=== PATIENT | male | born 1950 | race Caucasian/White ===

== ENCOUNTER 2017-03-18 19:38 | Emergency (ER) | payer OTHER, BC ==
[2017-03-18 19:44] VITALS: BP 159/92; PULSE 98; TEMP 97.5; BMI 23.7
--- NOTE | 2017-03-18 20:01 | PDOC ---
History of Present Illness - General History Source: Patient Exam Limitations: No Limitations - History of Present Illness Initial Comments: 03/18/17 20:49 Patient is a 66 year old male with a significant past medical history of COPD, chronic colitis?, depression and anxiety who presents to the ED with complaints of general body aches that began 10 days ago. Patient reports body aches began after being prescribed Lipitor on February 23 by PCP. He reports body aches began to subside after stopping prescription for 5 days. Patient reports restarting Lipitor prescription, which restarted the general body ache and joint pain within 2 days of taking the Medication. Patient states it has been 10 days since last dose of Lipitor medication. Patient does not rate pain but states pain intensity increased this morning stating It was barely bearable. He report experiencing intermittent episodes of chest tightness and jaw tensing secondary to general body ache and joint pain. Patient reports experiencing intermittent SOB this morning secondary to general body ache but states he has never experienced it with his COPD only morning mucous. Patient reports going to Family services in [place] for his anxiety panic disorder and depress. He states that is where he receives his therapy and medication from. Patient reports taking motrin with no relief and Extra Strength Tylenol with minimal relief. He reports beginning Vaping 2 weeks ago and is worried it is connected to his General body aches. Denies fever, chills. Denies any trauma to affected areas. Denies nausea, vomiting. Denies any contact with sick individual, out of state travel. Denies any other symptoms. Allergies: None Social history: Current smoker. Current Vaper. Former drinker (Quit August 2016) . No illicit drugs. Surgical history: None PMD: Dr. Sampson <Chico Hobbs - Last Filed: 03/18/17 20:49> <Regi Steele - Last Filed: 03/18/17 22:07> - General Chief Complaint: Chest Pain Stated Complaint: CHEST PAIN Time Seen by Provider: 03/18/17 19:56 Past History <Chico Hobbs - Last Filed: 03/18/17 20:49> - Past Medical History COPD: Yes Psychiatric Problems: Yes (DEPRESSION/PANIC ATTACKS) - Suicide/Smoking/Psychosocial Hx Smoking History: Current every day smoker Have you smoked in the past 12 months: Yes Number of Cigarettes Smoked Daily: 20 Information on smoking cessation initiated: No 'Breaking Loose' booklet given: 01/22/15 Hx Alcohol Use: Yes Drug/Substance Use Hx: No Substance Use Type: Alcohol <Regi Steele - Last Filed: 03/18/17 22:07> - Past Medical History Allergies/Adverse Reactions: Allergies Allergy/AdvReac Type Severity Reaction Status Date / Time No Known Allergies Allergy Verified 03/18/17 19:40 Home Medications: Ambulatory Orders Cephalexin Monohydrate [Keflex -] 500 mg PO Q6H #27 capsule 11/09/14 Clonazepam [Klonopin] 1 mg PO ASDIR 11/09/14 Duloxetine HCl [Cymbalta -] 60 mg PO DAILY 11/09/14 Quetiapine Fumarate "Xr" [Seroquel XR] 150 mg PO DAILY 11/09/14 Meclizine HCl [Antivert -] 25 mg PO TID PRN #30 tablet 01/22/15 Methocarbamol [Robaxin -] 500 mg PO TID #30 tablet 03/18/17 Review of Systems - Review of Systems Able to Perform ROS?: Yes Comments:: 03/18/17 20:49 GENERAL/CONSTITUTIONAL: No fever or chills. No weakness. HEAD, EYES, EARS, NOSE AND THROAT: No change in vision. No ear pain or discharge. No sore throat. CARDIOVASCULAR: No chest pain or shortness of breath. RESPIRATORY: No cough, wheezing, or hemoptysis. GASTROINTESTINAL: No nausea, vomiting, diarrhea or constipation. GENITOURINARY: No dysuria, frequency, or change in urination. MUSCULOSKELETAL: +General Body aches. +Joint pain. SKIN: No rash NEUROLOGIC: No headache, vertigo, loss of consciousness, or change in strength/ sensation. ENDOCRINE: No increased thirst. No abnormal weight change. HEMATOLOGIC/LYMPHATIC: No anemia, easy bleeding, or history of blood clots. ALLERGIC/IMMUNOLOGIC: No hives or skin allergy. All Other Systems: Reviewed and Negative <Chico Hobbs - Last Filed: 03/18/17 20:49> *Physical Exam - Vital Signs Last Vital Signs Temp Pulse Resp BP Pulse Ox 97.5 F L 98 H 20 159/92 98 03/18/17 19:40 03/18/17 19:40 03/18/17 19:40 03/18/17 19:40 03/18/17 19:40 - Physical Exam Comments: 03/18/17 20:49 GENERAL: +Pale. Awake, alert, and fully oriented, in no acute distress HEAD: No signs of trauma EYES: PERRLA, EOMI, sclera anicteric, conjunctiva clear ENT: Auricles normal inspection, hearing grossly normal, nares patent, oropharynx clear without exudates. Moist mucosa NECK: Normal ROM, supple, no lymphadenopathy, JVD, or masses LUNGS: Breath sounds equal, clear to auscultation bilaterally. No wheezes, and no crackles HEART: Regular rate and rhythm, normal S1 and S2, no murmurs, rubs or gallops ABDOMEN: Soft, nontender, normoactive bowel sounds. No guarding, no rebound. No masses EXTREMITIES: Normal range of motion, no edema. No clubbing or cyanosis. No cords, erythema, or tenderness NEUROLOGICAL: Cranial nerves II through XII grossly intact. Normal speech, normal gait SKIN: Warm, Dry, normal turgor, no rashes or lesions noted. <Chico Hobbs - Last Filed: 03/18/17 20:49> - Vital Signs Last Vital Signs Temp Pulse Resp BP Pulse Ox 97.5 F L 98 H 20 159/92 98 03/18/17 19:40 03/18/17 19:40 03/18/17 19:40 03/18/17 19:40 03/18/17 19:40 <Regi Steele - Last Filed: 03/18/17 22:07> ED Treatment Course - LABORATORY CBC & Chemistry Diagram: 03/18/17 20:50 03/18/17 20:50 <Regi Steele - Last Filed: 03/18/17 22:07> Medical Decision Making - Medical Decision Making 03/18/17 20:25 Pt comes with muscle aches all ramy his body; began last week; for the past 2 weeks he had been taking lipitor; he was on and off lipitor, as he found that it caused muscle aches. Pt has COPD and smokes cigars. He began vaping 2 weeks ago. Perhaps vaping is causing ,uscle aches. Pt admits that he has depression and panic and used to be an alcoholic. 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 He doesn't take care of himself and eat well. Pt may have body aches due to electrolyte disturbance. Pt may have body aches due to rheumatologic disease. <Regi Steele - Last Filed: 03/18/17 22:07> *DC/Admit/Observation/Transfer - Attestations Scribe Attestion: 03/18/17 20:50 Documentation prepared by Chico Hobbs, acting as center medical specialist for Regi Steele MD/DO. <Chico Hobbs - Last Filed: 03/18/17 20:49> - Discharge Dispostion Admit: No <Regi Steele - Last Filed: 03/18/17 22:07> Diagnosis at time of Disposition: Body aches - Discharge Dispostion Disposition: HOME Condition at time of disposition: Stable - Prescriptions Prescriptions: Methocarbamol [Robaxin -] 500 mg PO TID #30 tablet - Referrals Referrals: Emily Sampson MD [Primary Care Provider] - - Patient Instructions Printed Discharge Instructions: DI for Musculoskeletal Pain
[2017-03-18] MEDS ORDERED: SODIUM CHLORIDE 0.9% 500 ML INFUS.BAG IV ONE (20:18)
[2017-03-18] MEDS ORDERED: KETOROLAC TROMETHAMINE 30 MG/1 ML VIAL IVPUSH ONE (20:18)
[2017-03-18] MEDS ORDERED: THIAMINE HCL 200 MG/2 ML VIAL IVPB ONE (20:19)
[2017-03-18] MEDS ORDERED: CYANOCOBALAMIN (VITAMIN B-12) 1000 MCG/1 ML VIAL IM ONE (20:19)
[2017-03-18] MEDS ORDERED: MAGNESIUM SULF 50% (8.12 MEQ/2 ML-1 GM VIAL) IVPB ONE (20:19)
[2017-03-18] MEDS ORDERED: KETOROLAC TROMETHAMINE 30 MG/1 ML VIAL ONE (20:42)
[2017-03-18] MEDS ORDERED: THIAMINE HCL 200 MG/2 ML VIAL ONE (20:42)
[2017-03-18] MEDS ORDERED: MAGNESIUM SULF 50% (8.12 MEQ/2 ML-1 GM VIAL) ONE (20:42)
[2017-03-18 21:04] LABS: BASOPHIL 1.3 % (0-2.0); EOSINOPHIL 2.9 % (0-4.5); MCH 30.8 pg (25.7-33.7); MCHC 34.2 g/dl (32.0-35.9); MEAN PLT VOLUME 8.2 fl (7.5-11.1); NEUTROPHILS 62.3 % (42.8-82.8); PLATELET COUNT 178 K/MM3 (134-434); RDW 13.8 % (11.9-15.9); WHITE BLOOD COUNT 8.1 K/mm3 (4.0-10.0)
[2017-03-18 21:15] LABS: INR 0.92 (0.82-1.09); PROTHROMBIN TIME (PATIENT) 10.4 SEC (9.98-11.88)
[2017-03-18 21:30] LABS: ALBUMIN 4.3 g/dl (3.4-5.0); ANION GAP 6 (8-16); BILIRUBIN,TOTAL 0.3 mg/dL (0.2-1.0); CALCIUM 8.3 mg/dL (8.5-10.1); CO2 28 mmol/L (21-32); CREATININE 0.9 mg/dL (0.7-1.3); GLUCOSE,RANDOM 91 mg/dL (74-106); SGPT/ALT 31 U/L (12-78); TOT PROT 7.5 g/dl (6.4-8.2)
[2017-03-18 21:38] LABS: ALK PHOS 78 U/L (45-117); CPK 139 IU/L (39-308); TROPONIN I < 0.02 ng/ml (0.00-0.05)
[2017-03-18 21:42] LABS: SGOT/AST 20 U/L (15-37)
[2017-03-18] MEDS ORDERED: METHOCARBAMOL 500 MG TABLET PO ONE (22:00)
[2017-03-18] MEDS ORDERED: METHOCARBAMOL 500 MG TABLET ONE (22:14)
--- NOTE | 2017-03-19 17:30 | EKG ---
Test Reason : Blood Pressure : / mmHG Vent. Rate : 083 BPM Atrial Rate : 083 BPM P-R Int : 182 ms QRS Dur : 102 ms QT Int : 386 ms P-R-T Axes : 081 014 055 degrees QTc Int : 453 ms NORMAL SINUS RHYTHM INCOMPLETE RIGHT BUNDLE BRANCH BLOCK SEPTAL INFARCT , AGE UNDETERMINED ABNORMAL ECG WHEN COMPARED WITH ECG OF 29-OCT-2010 21:57, NO SIGNIFICANT CHANGE WAS FOUND Confirmed by BRADLEY WADE MD ([id number]) on 03/19/2017 5:30:05 PM Referred By: Confirmed By:BRADLEY WADE MD
== END 2017-03-18 22:13 | disposition home or self-care (01) ==
LOC: JER 19:38
DX: M79.1 Myalgia (principal); J44.9 Chronic obstructive pulmonary disease, unspecified; F41.8 Other specified anxiety disorders; F17.290 Nicotine dependence, other tobacco product, uncomplicated
CPT/HCPCS: 36415; 80053; 82550; 84484; 85025; 85610; 85651; 85730; 93005; 93010; 99281-25

== ENCOUNTER 2017-07-07 16:28 | Emergency (ER) | payer OTHER, BC ==
[2017-07-07 16:42] VITALS: BP 143/100; PULSE 95; TEMP 97.5; BMI 24.3
--- NOTE | 2017-07-07 18:09 | PDOC ---
Attending Attestation - Resident Resident Name: Esteban Harrison - ED Attending Attestation I have performed the following: I have examined & evaluated the patient, The case was reviewed & discussed with the resident, I agree w/resident's findings & plan, Exceptions are as noted - HPI HPI: 07/07/17 18:06 66 yo M presenting with a complaint of black tarry stools Awoke yesterday feeling dizzy At noon, he had 2 nml bowel movements After that, 1 liquid black stool AFTER this, he took Peptobismol Continues to feel weak and malaised Today had 2 dark appearing stools He notes abdominal discomfort No prior endoscopy or colonoscopy - Physicial Exam PE: 07/07/17 18:08 GENERAL: The patient is in no acute distress. EYES: PERRLA, EOMI, conjunctiva clear LUNGS: Breath sounds equal, clear to auscultation bilaterally. No wheezes, and no crackles. HEART:Regular rate and rhythm, normal S1 and S2 without murmur, rub or gallop. ABDOMEN: Soft, nontender RECTAL: brown stools, no external hemorrhoids (by resident) NEUROLOGICAL: Cranial nerves II through XII grossly intact. Normal speech. No focal neurological deficits. SKIN: No bruising - Medical Decision Making 07/09/17 12:04 66 yo M p/w dizziness and description of what sounds like melanotic stools Exam is significant for brown stools guiaic (+) No abd pain Hgb stable Pt not dizzy with standing Call placed to Dr Christianson He agrees with discharge Pt can be seen in the office for outpatient work up (no prior colonoscopy or endoscopy) Clinical impression: guiaic positive stool, initial presentation
[2017-07-07 18:14] LABS: HEMATOCRIT 34.7 % (35.4-49); HEMOGLOBIN 12.2 GM/dL (11.7-16.9); LYMPH % 19.1 % (8-40); MCH 33.1 pg (25.7-33.7); MCHC 35.2 g/dl (32.0-35.9); MEAN CELL VOLUME 94.1 fl (80-96); MEAN PLT VOLUME 8.6 fl (7.5-11.1); MONO % 6.3 % (3.8-10.2); NEUT % 72.6 % (42.8-82.8); PLATELET COUNT 170 K/MM3 (134-434); RBC 3.69 M/mm3 (4.00-5.60); RDW 14.4 % (11.9-15.9); WHITE BLOOD COUNT 11.1 K/mm3 (4.0-10.0)
[2017-07-07 18:33] LABS: INR 0.93 (0.82-1.09); PROTHROMBIN TIME (PATIENT) 10.5 SEC (9.98-11.88)
[2017-07-07 18:35] LABS: ACTIVATED PTT 30.4 SECONDS (26.9-34.4)
[2017-07-07 18:38] LABS: ALBUMIN 4.3 g/dl (3.4-5.0); ANION GAP 9 (8-16); BILIRUBIN,TOTAL 0.4 mg/dL (0.2-1.0); BLOOD UREA NITROGEN 20 mg/dL (7-18); CALCIUM 8.7 mg/dL (8.5-10.1); CHLORIDE 104 mmol/L (98-107); CO2 24 mmol/L (21-32); CREATININE 0.8 mg/dL (0.7-1.3); GLUCOSE,RANDOM 99 mg/dL (74-106); POTASSIUM 4.6 mmol/L (3.5-5.1); SGOT/AST 26 U/L (15-37); SGPT/ALT 28 U/L (12-78); SODIUM 137 mmol/L (136-145); TOT PROT 7.8 g/dl (6.4-8.2)
[2017-07-07 18:39] LABS: ALK PHOS 81 U/L (45-117)
--- NOTE | 2017-07-07 18:56 | PDOC ---
History of Present Illness - General Chief Complaint: Rectal Bleed Stated Complaint: LIGHTHEADED/WEAK Time Seen by Provider: 07/07/17 17:07 History Source: Patient - History of Present Illness Initial Comments: 07/07/17 18:48 66M wioth pmh of depression anxiety presents with 2 episodes of liquid black tarry stools since yesterday. He states that he ingested Kaopectate after his first episode yesterday. Complains of generalized weakness/fatigue. Denies nausea, vomiting, abdominal pain, chest pain, diarrhea or constipation or bright blood per rectum. 07/07/17 18:53 07/07/17 18:56 07/07/17 18:58 Past History - Past Medical History Allergies/Adverse Reactions: Allergies Allergy/AdvReac Type Severity Reaction Status Date / Time azithromycin AdvReac Verified 07/07/17 16:38 Home Medications: Ambulatory Orders Cephalexin Monohydrate [Keflex -] 500 mg PO Q6H #27 capsule 11/09/14 Clonazepam [Klonopin] 1 mg PO ASDIR 11/09/14 Duloxetine HCl [Cymbalta -] 60 mg PO DAILY 11/09/14 Quetiapine Fumarate "Xr" [Seroquel XR] 150 mg PO DAILY 11/09/14 Meclizine HCl [Antivert -] 25 mg PO TID PRN #30 tablet 01/22/15 Methocarbamol [Robaxin -] 500 mg PO TID #30 tablet 03/18/17 COPD: Yes Psychiatric Problems: Yes (DEPRESSION/PANIC ATTACKS) - Suicide/Smoking/Psychosocial Hx Smoking History: Current every day smoker Have you smoked in the past 12 months: Yes Number of Cigarettes Smoked Daily: 20 Information on smoking cessation initiated: No 'Breaking Loose' booklet given: 01/22/15 Hx Alcohol Use: Yes Drug/Substance Use Hx: No Substance Use Type: Alcohol Review of Systems - Review of Systems Able to Perform ROS?: Yes Is the patient limited Divehi proficient: No Constitutional: Yes: Weakness. No: Symptoms Reported HEENTM: No: Symptoms Reported Respiratory: No: Symptoms reported Cardiac (ROS): No: Symptoms Reported ABD/GI: Yes: See HPI : No: Symptoms Reported Musculoskeletal: No: Symptoms Reported All Other Systems: Reviewed and Negative *Physical Exam - Vital Signs Last Vital Signs Temp Pulse Resp BP Pulse Ox 97.5 F L 95 H 19 143/100 99 07/07/17 16:38 07/07/17 16:38 07/07/17 16:38 07/07/17 16:38 07/07/17 16:38 - Physical Exam General Appearance: Yes: Nourished, Appropriately Dressed. No: Apparent Distress HEENT: positive: EOMI, KARUNA, Normal ENT Inspection Respiratory/Chest: positive: Lungs Clear, Normal Breath Sounds. negative: Chest Tender, Respiratory Distress Cardiovascular: positive: Regular Rhythm, Regular Rate, S1, S2 Musculoskeletal: positive: Normal Inspection. negative: CVA Tenderness Extremity: positive: Normal Capillary Refill, Normal Inspection, Normal Range of Motion Integumentary: positive: Normal Color, Dry, Warm Neurologic: positive: Fully Oriented, Alert, Normal Mood/Affect ED Treatment Course - LABORATORY CBC & Chemistry Diagram: 07/07/17 18:00 07/07/17 18:00 - ADDITIONAL ORDERS Additional order review: Laboratory Results 07/07/17 07/07/17 07/07/17 18:00 18:00 18:00 PT with INR 10.50 INR 0.93 PTT (Actin FS) 30.4 Sodium 137 Potassium 4.6 Chloride 104 Carbon Dioxide 24 Anion Gap 9 BUN 20 H D Creatinine 0.8 Creat Clearance w eGFR > 60 Random Glucose 99 Calcium 8.7 Total Bilirubin 0.4 D AST 26 D ALT 28 Alkaline Phosphatase 81 Total Protein 7.8 Albumin 4.3 Stool Occult Blood Positive 07/07/17 18:00 RBC 3.69 L MCV 94.1 MCHC 35.2 RDW 14.4 MPV 8.6 Neutrophils % 72.6 Lymphocytes % 19.1 D Monocytes % 6.3 Eosinophils % 1.0 Basophils % 1.0 - RADIOLOGY Radiology Studies Ordered: Category Date Time Status CHEST PA & LAT [RAD] Stat Radiology 07/07/17 17:23 Ordered Medical Decision Making - Medical Decision Making 07/07/17 18:57 Occult blood positive. 07/07/17 18:58 Will send for chest xray due patient's long history of smoking. *DC/Admit/Observation/Transfer Diagnosis at time of Disposition: Melena - Discharge Dispostion Disposition: HOME Condition at time of disposition: Stable Admit: No - Referrals Referrals: Emily Sampson MD [Primary Care Provider] - Benito Christianson MD [Staff Physician] - - Patient Instructions Printed Discharge Instructions: Gastrointestinal Bleeding Additional Instructions: Follow up with Dr. Christianson within 2-3 days for appointment to get endoscopy for upper gastrointestinal bleed. Come back to the ER for any new, worsening or concerning symptoms. - Post Discharge Activity
== END 2017-07-07 19:41 | disposition home or self-care (01) ==
LOC: JER 16:28
DX: K92.1 Melena (principal)
CPT/HCPCS: 36415; 71046-TC-FY; 80053; 82272; 85025; 85610; 85730; 86850; 86900; 86901; 99284-25

== ENCOUNTER 2018-05-02 12:11 | Inpatient (IN) | payer OTHER, BC ==
--- NOTE | 2018-05-02 12:53 | PDOC ---
History of Present Illness - General Chief Complaint: SIRS, Suspected/Possible Stated Complaint: FLU Symptoms History Source: Patient Exam Limitations: No Limitations - History of Present Illness Initial Comments: 05/02/18 15:06 67 yo M with a hx of anxiety, depression, and panic disorder presents to the emergency department with 1 week of "flu like symptoms" with a cough that is non productive. Per the patient, he has had a dry cough that has not improved, prompting him to visit the department at the urging of his sister. He endorses to having poor follow up with his primary medical doctor and does not take care of himself as much as he would like to at home. Recently, he has been wearing diapers at night for 2 weeks due to urinary incontinence at night, but denies this occurrence during the day. Denies the following: fever, chills, SOB, chest pain, nausea, vomiting, dysuria, hematuria, diarrhea, hematochezia, and leg pain /swelling. Pmhx: none Allergies: Azithromycin Social: Endorses tobacco smoking. Denies alcohol and substance abuse. Past History - Past Medical History Allergies/Adverse Reactions: Allergies Allergy/AdvReac Type Severity Reaction Status Date / Time azithromycin AdvReac Verified 05/02/18 12:26 Home Medications: Ambulatory Orders Clonazepam [Klonopin] 3 mg PO DAILY PRN 11/09/14 Quetiapine Fumarate "Xr" [Seroquel XR] 300 mg PO HS 11/09/14 Escitalopram Oxalate [Lexapro -] 10 mg PO BID 05/02/18 COPD: Yes Psychiatric Problems: Yes (DEPRESSION/PANIC ATTACKS) - Suicide/Smoking/Psychosocial Hx Smoking History: Current every day smoker Have you smoked in the past 12 months: Yes Number of Cigarettes Smoked Daily: 7 Information on smoking cessation initiated: No 'Breaking Loose' booklet given: 01/22/15 Hx Alcohol Use: No Drug/Substance Use Hx: No Substance Use Type: Alcohol Review of Systems - Review of Systems Able to Perform ROS?: Yes Is the patient limited Frisian proficient: No Constitutional: Yes: Weakness. No: Chills, Diaphoresis, Fever HEENTM: No: Eye Pain, Recent change in vision, Ear Pain, Nose Pain, Throat Pain , Mouth Pain Respiratory: Yes: Cough. No: Shortness of Breath, SOB with Exertion, Hemoptysis Cardiac (ROS): No: Chest Pain, Edema, Lightheadedness, Palpitations, Syncope, Chest Tightness ABD/GI: No: Constipated, Diarrhea, Nausea, Poor Appetite, Poor Fluid Intake, Rectal Bleeding, Vomiting, Indigestion, Abdominal cramping, Tarry Stools : No: Burning, Dysuria, Hematuria, Urgency Musculoskeletal: No: Back Pain, Gout, Joint Pain, Neck Pain Integumentary: No: Bruising, Erythema, Flushing, Lesions, Lumps, Pruritus, Rash Neurological: No: Headache, Numbness, Tingling, Tremors, Ataxia, Dizziness Psychiatric: No: Stressors Endocrine: No: Unexplained Weight Gain Hematologic/Lymphatic: No: Anemia *Physical Exam - Vital Signs Last Vital Signs Temp Pulse Resp BP Pulse Ox 99.3 F 92 H 20 103/56 L 93 L 05/02/18 12:26 05/02/18 12:26 05/02/18 12:05/02/18 12:05/02/18 12:26 - Physical Exam General Appearance: Yes: Nourished, Appropriately Dressed. No: Apparent Distress, Intoxicated HEENT: positive: EOMI, KARUNA, Normal Voice, Symmetrical, Pharynx Normal, Hearing Grossly Normal. negative: Pale Conjunctivae, Scleral Icterus (R), Scleral Icterus (L), Muffled/Hoarse voice, Pharyngeal Erythema, Tonsillar Exudate, Tonsillar Erythema, Nasal Congestion, Sinus Tenderness, Excessive drooling Neck: positive: Trachea midline. negative: Tender, Lymphadenopathy (R), Lymphadenopathy (L), Tender lateral, Tender midline Respiratory/Chest: positive: Decreased Breath Sounds, Crackles, Rhonchi. negative: Chest Tender, Lungs Clear, Normal Breath Sounds, Respiratory Distress , Accessory Muscle Use, Wheezing, Hyperresonant Cardiovascular: positive: Regular Rhythm, Regular Rate, S1, S2. negative: Systolic Murmur Gastrointestinal/Abdominal: positive: Normal Bowel Sounds, Flat, Soft. negative : Tender, Distended, Hernia Lymphatic: negative: Adenopathy Musculoskeletal: positive: Normal Inspection. negative: CVA Tenderness Extremity: positive: Normal Capillary Refill, Normal Inspection, Normal Range of Motion. negative: Tender, Pedal Edema, Swelling, Calf Tenderness Integumentary: positive: Normal Color, Dry, Warm. negative: Cold, Clammy, Rash , Swelling Neurologic: positive: band manager II-XII NML intact, Fully Oriented, Alert, Normal Mood/ Affect, Normal Response, Motor Strength 5/5 Moderate Sedation - Procedure Monitoring Vital Signs: Procedure Monitoring Vital Signs Temperature 99.3 F 05/02/18 12:26 Pulse Rate 92 H 05/02/18 12:26 Respiratory Rate 20 05/02/18 12:26 Blood Pressure 103/56 L 05/02/18 12:26 O2 Sat by Pulse Oximetry (%) 93 L 05/02/18 12:26 Heart Score/ECG Review - ECG Intrepretation Comment:: ventricular rate is 87 bpm, PA is 166 ms, QRS is 110 ms, and QTc is 476 ms. Normal sinus rhythm with incomplete right bbb. NO st elevations or depressions noted. ED Treatment Course - LABORATORY CBC & Chemistry Diagram: 05/04/18 07:00 05/04/18 07:00 Medical Decision Making - Medical Decision Making 67 yo M with a hx of anxiety, depression, and panic disorder presents to the emergency department with 1 week of "flu like symptoms" with a cough that is non productive. Initial vitals: Initial Vital Signs Temp Pulse Resp BP Pulse Ox 99.3 F 92 H 20 103/56 L 93 L 05/02/18 12:26 05/02/18 12:26 05/02/18 12:26 05/02/18 12:26 05/02/18 12:26 Work up: ddx: concerns for PNA given length of cough without improvement. ddx includes URI vs PNA vs ACS. will order cbc, cmp, trops, ua, urine culture, cxr, ekg. Laboratory Tests 05/02/18 05/02/18 05/02/18 09:10 13:37 13:37 WBC RBC Hgb Hct MCV MCH MCHC RDW Plt Count MPV Absolute Neuts (auto) Neutrophils % Lymphocytes % Monocytes % Eosinophils % Basophils % Nucleated RBC % Sodium Potassium Chloride Carbon Dioxide Anion Gap BUN Creatinine Creat Clearance w eGFR Random Glucose Lactic Acid 1.3 Calcium Magnesium Total Bilirubin AST ALT Alkaline Phosphatase Troponin I Total Protein Albumin Urine Color Yellow Urine Appearance Clear Urine pH 6.0 Ur Specific [place] 1.028 Urine Protein Negative Urine Glucose (UA) Negative Urine Ketones Trace H Urine Blood Negative Urine Nitrite Negative Urine Bilirubin Negative Urine Urobilinogen 4.0 e.u/dl Ur Leukocyte Esterase Negative Influenza A (Rapid) Negative Influenza B (Rapid) Negative 05/02/18 05/02/18 13:48 13:48 WBC 14.0 H RBC 3.22 L Hgb 9.2 L Hct 27.7 L D MCV 85.9 MCH 28.6 D MCHC 33.3 RDW 15.3 Plt Count 287 D MPV 7.6 D Absolute Neuts (auto) 12.0 H Neutrophils % 85.7 H Lymphocytes % 6.2 L D Monocytes % 6.9 Eosinophils % 0.1 D Basophils % 1.1 Nucleated RBC % 0 Sodium 134 L Potassium 3.3 L Chloride 98 Carbon Dioxide 27 Anion Gap 9 BUN 10 Creatinine 0.7 Creat Clearance w eGFR > 60 Random Glucose 99 Lactic Acid Calcium 7.6 L Magnesium 2.2 Total Bilirubin 0.4 AST 46 H ALT 43 Alkaline Phosphatase 96 Troponin I < 0.02 Total Protein 6.8 Albumin 2.4 L Urine Color Urine Appearance Urine pH Ur Specific [place] Urine Protein Urine Glucose (UA) Urine Ketones Urine Blood Urine Nitrite Urine Bilirubin Urine Urobilinogen Ur Leukocyte Esterase Influenza A (Rapid) Influenza B (Rapid) leukocytosis present. negative trops. cxr shows segmental right lower lobe pneumonia with reactive right pleural effusion. the patient was started on ceftriaxone and doxycycline (due to azithro allergy). the patient was given duoneb treatment. discussed the case with the admitting team. concerns exist this patient given his suboptimal ability to follow up and care for himself, its best he is admitted for IV antibiotic treatment. Dispo: Admit *DC/Admit/Observation/Transfer Diagnosis at time of Disposition: Tobacco dependence Sepsis Qualifiers: Sepsis type: sepsis due to unspecified organism Qualified Code(s): A41.9 - Sepsis, unspecified organism Pneumonia Qualifiers: Pneumonia type: due to unspecified organism Laterality: right Lung location: lower lobe of lung Qualified Code(s): J18.1 - Lobar pneumonia, unspecified organism - Referrals - Patient Instructions - Post Discharge Activity
[2018-05-02] MEDS ORDERED: SODIUM CHLORIDE 0.9% 1000 ML INFUS.BAG IV ONE (13:19)
[2018-05-02] MEDS ORDERED: ACETAMINOPHEN 1000 MG/100 ML VIAL (NON FORMULARY) IVPB ONE (13:19)
[2018-05-02] MEDS ORDERED: ALBUTEROL SO4 2.5/IPRATROPIUM 0.5 INH SOL 3 ML VIAL.NEB. NEB ONE ×2 (13:19→13:50)
--- NOTE | 2018-05-02 13:48 | PDOC ---
Attending Attestation - HPI HPI: 05/02/18 13:55 The patient is a 67 year old male, with a significant PMH of panic attacks, depression and anxiety, who presents to the emergency department with 1 week of general malaise, non productive cough and fatigue. The patient states he has had a dry cough which has not been getting better which prompted the ED visit. The patient states he received a flu shot 5 weeks ago. The patient also states he has been wearing diapers at night for 2 weeks secondary to urinary incontinence in the night while sleeping. The patient denies any day time incontinence. The patient denies chest pain, shortness of breath, headache and dizziness. Denies fever, chills, nausea, vomit, diarrhea and constipation. Denies dysuria, frequency, urgency and hematuria. Allergies: azithromycin Documentation prepared by Jonathan Sam, acting as medical officer psychiatry for Anil Naylor MD. - Physicial Exam PE: 05/02/18 15:16 Vitals: Triage Vital signs reviewed General Appearance: no acute distress, well nourished well developed, Neck: Supple; No Nuchal rigidity Chest Wall: Nontender Cardiac: Regular rate and rhythm, no murmurs, no rubs, no gallops, Lungs: (+) Coarse breath sounds bilaterally. (+) Wheezing. (+) Crackles at the right base. Abdomen: Soft, nondistended, normal bowel sounds, nontender to palpation Rectal: Exam deferred Extremities: Full range of motion to all extremities, no cyanosis, clubbing, or edema Skin: Warm and dry, no rashes or lesions, no petechiae Psych: normal mood, normal affect <Jonathan Sam - Last Filed: 05/02/18 15:16> - Resident Resident Name: ZeenatGordon - ED Attending Attestation I have performed the following: I have examined & evaluated the patient, The case was reviewed & discussed with the resident, I agree w/resident's findings & plan, Exceptions are as noted - Medical Decision Making 05/02/18 16:50 67 years old with new right lower lobe pneumonia Patient borderline hypotensive based on previous blood pressures Given age comorbidities and blood pressure we'll admit to medicine for IV antibiotics and further management of pneumonia. <Anil Naylor - Last Filed: 05/02/18 16:52> Heart Score/ECG Review - ECG Impressions Comment:: 05/02/18 16:52 EKG performed at 1332 demonstrates normal sinus rhythm no ST elevations noted T- wave inversions incomplete right bundle-branch block. Interpreted by me. <Anil Naylor - Last Filed: 05/02/18 16:52>
[2018-05-02] MEDS ORDERED: ACETAMINOPHEN INJECTION 100 ML IVPB ONE (13:50)
--- NOTE | 2018-05-02 13:58 | EKG ---
Test Reason : Blood Pressure : / mmHG Vent. Rate : 087 BPM Atrial Rate : 087 BPM P-R Int : 166 ms QRS Dur : 110 ms QT Int : 396 ms P-R-T Axes : 081 058 061 degrees QTc Int : 476 ms NORMAL SINUS RHYTHM INCOMPLETE RIGHT BUNDLE BRANCH BLOCK BORDERLINE ECG WHEN COMPARED WITH ECG OF 18-MAR-2017 20:56, CRITERIA FOR SEPTAL INFARCT ARE NO LONGER PRESENT Confirmed by IZABEL VIEYRA MD ([id number]) on 05/02/2018 1:58:32 PM Referred By: Confirmed By:IZABEL VIEYRA MD
[2018-05-02 13:59] LABS: BASO % 1.1 % (0-2.0); EOS % 0.1 % (0-4.5); HEMATOCRIT 27.7 % (35.4-49); HEMOGLOBIN 9.2 GM/dL (11.7-16.9); LYMPH % 6.2 % (8-40); MCH 28.6 pg (25.7-33.7); MCHC 33.3 g/dl (32.0-35.9); MEAN CELL VOLUME 85.9 fl (80-96); MEAN PLT VOLUME 7.6 fl (7.5-11.1); MONO % 6.9 % (3.8-10.2); NEUT % 85.7 % (42.8-82.8); PLATELET COUNT 287 K/MM3 (134-434); RBC 3.22 M/mm3 (4.00-5.60); RDW 15.3 % (11.9-15.9)
[2018-05-02 14:40] LABS: ALBUMIN 2.4 g/dl (3.4-5.0); ALK PHOS 96 U/L (45-117); ANION GAP 9 MMOL/L (8-16); BILIRUBIN,TOTAL 0.4 mg/dL (0.2-1); BLOOD UREA NITROGEN 10 mg/dL (7-18); CALCIUM 7.6 mg/dL (8.5-10.1); CHLORIDE 98 mmol/L (98-107); CO2 27 mmol/L (21-32); CREATININE 0.7 mg/dL (0.55-1.3); GLUCOSE,RANDOM 99 mg/dL (74-106); POTASSIUM 3.3 mmol/L (3.5-5.1); SGOT/AST 46 U/L (15-37); SGPT/ALT 43 U/L (13-61); SODIUM 134 mmol/L (136-145); TOT PROT 6.8 g/dl (6.4-8.2)
[2018-05-02] MEDS ORDERED: CEFTRIAXONE 1,000 MG in DEXTROSE 5%-WATER - 50 ML IVPB ONE (15:20)
--- NOTE | 2018-05-02 15:20 | HP ---
Admitting History and Physical - Primary Care Physician PCP: Emily Sampson - Admission Chief Complaint: CAP History of Present Illness: 67 year old male pmh of anxiety disorder and COPD, presents with malaise for over a week. Pt reports he has been feeling more fatigued, w/ flu like symptoms for the last week. He reports accompanying productive cough w/ white sputum, chills, and anorexia. Pt denies any chest pain, sob, lightheadedness, dizziness , n/v/d, dysuria, rash or recent changes in medications. Pt is followed by [facility] for his psychiatric conditions. Per outpt records, pt has refused f/u with pulm/cardiology. Socially isolated and lives by himself, has no social support. He does attend AA meetings. History Source: Patient, Medical Record Limitations to Obtaining History: No Limitations - Past Medical History Pulmonary: Yes: COPD Psych: Yes: Anxiety, Depression, Panic Musculoskeletal: Yes: Osteoarthritis - Past Surgical History Past Surgical History: Yes: Tonsillectomy - Smoking History Smoking history: Current every day smoker Have you smoked in the past 12 months: Yes Aproximately how many cigarettes per day: 7 - Alcohol/Substance Use Hx Alcohol Use: No (AA since 08/2016) History of Substance Use: reports: None - Social History Usual Living Arrangement: Yes: Alone ADL: Independent History of Recent Travel: No Home Medications - Allergies Allergies/Adverse Reactions: Allergies Allergy/AdvReac Type Severity Reaction Status Date / Time azithromycin AdvReac Verified 05/02/18 12:26 - Home Medications Home Medications: Ambulatory Orders Clonazepam [Klonopin] 3 mg PO DAILY PRN 11/09/14 Quetiapine Fumarate "Xr" [Seroquel XR] 300 mg PO HS 11/09/14 Escitalopram Oxalate [Lexapro -] 10 mg PO BID 05/02/18 Family Disease History - Family Disease History Family Disease History: Diabetes: Father, Brother (lung ca), CA: Brother Review of Systems Findings/Remarks: as per hpi Physical Examination Vital Signs: Vital Signs Temperature 99.3 F 05/02/18 12:26 Pulse Rate 92 H 05/02/18 12:26 Respiratory Rate 20 05/02/18 12:26 Blood Pressure 103/56 L 05/02/18 12:26 O2 Sat by Pulse Oximetry (%) 93 L 05/02/18 12:26 Constitutional: Yes: Well Nourished, No Distress, Anxious Cardiovascular: Yes: WNL, Regular Rate and Rhythm. No: Murmur Respiratory: Yes: Regular, CTA Bilaterally, Rales (RLL). No: Accessory Muscle Use, Tachypnea, Wheezes Gastrointestinal: Yes: WNL, Normal Bowel Sounds, Soft. No: Distention, Tenderness Renal/: Yes: WNL Extremities: Yes: WNL Edema: No Neurological: Yes: WNL, Alert, Oriented Psychiatric: Yes: WNL, Alert, Oriented Labs: CBC, BMP 05/02/18 13:48 05/02/18 13:48 Imaging - Results Chest X-ray: Report Reviewed (RLL infiltrate w/ reactive pleural effusion) Problem List - Problems (1) Sepsis Assessment/Plan: 2/2 CAP chest xray- RLL infiltrate w/ reactive effusion pt hypotensive, tachycardic, wbc 14k lactic acid wnl IVF ceftriaxone, doxy day 1 await blood/sputum culture urine legionella ordered monitor Code(s): A41.9 - SEPSIS, UNSPECIFIED ORGANISM Qualifiers: Sepsis type: sepsis due to unspecified organism Qualified Code(s): A41.9 - Sepsis, unspecified organism (2) Pneumonia Assessment/Plan: as above Code(s): J18.9 - PNEUMONIA, UNSPECIFIED ORGANISM Qualifiers: Pneumonia type: due to unspecified organism Laterality: right Lung location: lower lobe of lung Qualified Code(s): J18.1 - Lobar pneumonia, unspecified organism (3) Leukocytosis Assessment/Plan: as above Code(s): D72.829 - ELEVATED WHITE BLOOD CELL COUNT, UNSPECIFIED (4) Hypokalemia Assessment/Plan: suspect 2/2 reduced po intake kcl 40meq x 2 monitor bmp Code(s): E87.6 - HYPOKALEMIA (5) Hyponatremia Assessment/Plan: mild IVF monitor bmp Code(s): E87.1 - HYPO-OSMOLALITY AND HYPONATREMIA (6) Anemia Assessment/Plan: normocytic, normochromic no obvious signs of bleeding heme occult ordered iron/vitb12/folate panel ordered monitor Code(s): D64.9 - ANEMIA, UNSPECIFIED Qualifiers: Anemia type: unspecified type Qualified Code(s): D64.9 - Anemia, unspecified (7) Anxiety Assessment/Plan: stable continue home meds xanax prn Code(s): F41.9 - ANXIETY DISORDER, UNSPECIFIED (8) COPD (chronic obstructive pulmonary disease) Assessment/Plan: chronic, severe obstructive disease on PFTs 2016 per outpt records, pt has refused to f/u w/ pulm spiriva ordered Code(s): J44.9 - CHRONIC OBSTRUCTIVE PULMONARY DISEASE, UNSPECIFIED Qualifiers: COPD type: chronic bronchitis (9) Abnormal CT of the chest Assessment/Plan: 04/22 abnormal study- infiltrate changes, nodules hx of lung ca repeat chest CT to assess further progression/malignancy Code(s): R93.89 - ABNORMAL FINDINGS ON DX IMAGING OF OTH BODY STRUCTURES (10) Tobacco dependence Assessment/Plan: chronic cigarette smoker nicotine patch ordered Code(s): F17.200 - NICOTINE DEPENDENCE, UNSPECIFIED, UNCOMPLICATED
[2018-05-02] MEDS ORDERED: DOXYCYCLINE INJECTION 100 MG in DEXTROSE 5%-WATER - 100 ML IVPB ONE (15:22)
[2018-05-02 15:26] LABS: MAGNESIUM 2.2 mg/dL (1.8-2.4)
[2018-05-02] MEDS ORDERED: CLONAZEPAM 3 MG PO PRN (15:58)
[2018-05-02] MEDS ORDERED: CEFTRIAXONE 1 GM/50 ML BAG ONE (16:09)
[2018-05-02] MEDS ORDERED: ALPRAZolam 0.25 MG TABLET PO PRN (16:11)
[2018-05-02] MEDS: SODIUM CHLORIDE 1,000 ML IV SCH (16:20)
[2018-05-02] MEDS ORDERED: DOXYCYCLINE HYCLATE 100 MG VIAL ONE (17:21)
[2018-05-02] MEDS: NICOTINE 7 MG/24 HOURS TOPICAL PATCH TD SCH (17:35)
[2018-05-02] MEDS ORDERED: PT OWN MED DRAWER 7, Y5N ONE (21:11)
[2018-05-02] MEDS ORDERED: DOXYCYCLINE INJECTION 100 MG in DEXTROSE 5%-WATER - 100 ML IVPB SCH (22:00)
[2018-05-02] MEDS: ESCITALOPRAM OXALATE 10 MG TABLET (FP) PO SCH (22:41)
[2018-05-02] MEDS ORDERED: clonazePAM 0.5 MG TABLET ONE (22:46)
[2018-05-02] MEDS: CLONAZEPAM PO PRN (22:47)
[2018-05-02] MEDS ORDERED: clonazePAM 2 MG TABLET ONE (22:47)
[2018-05-03 07:57] LABS: BASO % 0.7 % (0-2.0); HEMATOCRIT 26.8 % (35.4-49); HEMOGLOBIN 8.8 GM/dL (11.7-16.9); LYMPH % 3.4 % (8-40); MCH 28.3 pg (25.7-33.7); MEAN CELL VOLUME 85.8 fl (80-96); MONO % 4.8 % (3.8-10.2); NEUT % 91.1 % (42.8-82.8); PLATELET COUNT 267 K/MM3 (134-434); RBC 3.13 M/mm3 (4.00-5.60); RDW 15.5 % (11.9-15.9); WHITE BLOOD COUNT 19.2 K/mm3 (4.0-10.0)
[2018-05-03 08:35] LABS: ALBUMIN 1.8 g/dl (3.4-5.0); ALK PHOS 77 U/L (45-117); ANION GAP 10 MMOL/L (8-16); BILIRUBIN,TOTAL 0.4 mg/dL (0.2-1); BLOOD UREA NITROGEN 6 mg/dL (7-18); CHLORIDE 102 mmol/L (98-107); CO2 24 mmol/L (21-32); CREATININE 0.5 mg/dL (0.55-1.3); GLUCOSE,RANDOM 117 mg/dL (74-106); POTASSIUM 3.2 mmol/L (3.5-5.1); SGOT/AST 26 U/L (15-37); SGPT/ALT 30 U/L (13-61); SODIUM 136 mmol/L (136-145); TOT PROT 5.4 g/dl (6.4-8.2)
[2018-05-03] MEDS ORDERED: ENOXAPARIN NA (PORCINE) 40 MG/0.4 ML DISP.SYRIN SQ SCH (10:00)
[2018-05-03] MEDS ORDERED: TIOTROPIUM BROMIDE 2.5 MCG (SPIRIVA) RESPIMAT INHALER IH SCH (10:00)
[2018-05-03] MEDS ORDERED: LACTOBACILLUS ACIDOPHILUS 1 TABLET PO SCH (10:00)
[2018-05-03] MEDS ORDERED: CEFTRIAXONE 1 GM in DEXTROSE 5%-WATER - 50 ML IVPB SCH (10:00)
[2018-05-03] MEDS ORDERED: methylPREDNISolone NA SUCC 125 MG/2 ML VIAL IVPUSH ONE (10:00)
[2018-05-03] MEDS ORDERED: VANCOMYCIN 1 GRAM (PRE-DOCKED) 1,000 MG/250 ML BAG IVPB ONE (10:00)
[2018-05-03] MEDS ORDERED: POTASSIUM CHLORIDE TABS 20 MEQ TABLET.ER (FP) PO SCH (10:00)
[2018-05-03 10:08] LABS: ARTERIAL BLD GAS O2 SATURATION 93.5 % (90-98.9); ARTERIAL BLOOD GAS BASE EXCESS -1.5 meq/l (-2-2); ARTERIAL BLOOD GAS PCO2 42.4 mmHg (35-45); ARTERIAL BLOOD GAS PO2 77.2 mmHg (80-100); ARTERIAL BLOOD GAS pH 7.36 (7.35-7.45)
[2018-05-03 10:18] LABS: ANISOCYTOSIS 0; MACROCYTOSIS 0; PLATELET ESTIMATE NORMAL
[2018-05-03] MEDS ORDERED: MEROPENEM 1 GM in DEXTROSE 5%-WATER 100 ML IVPB ONE ×2 (10:30→16:21)
--- NOTE | 2018-05-03 10:44 | ECHO ---
Name: JUANA ROBERSON Exam:Adult Echocardiogram Study Date: 05/03/2018 10:05 AM Age: 67 yrs Reason For Study: pericardial effusion Height: 74 in Weight: 170 lb BSA: 2.0 m2 Procedure The study was technically difficult with many images being suboptimal in quality. Left Ventricle Left ventricular systolic function is grossly normal. Right Ventricle The right ventricle is grossly normal size. Pericardium/Pleura Small pericardial effusion (<1cm). No evidence of RV diastolic collapse to suggest tamponade. Doppler evaluation of mitral inflow was technically difficult and unreliable due to off axis imaging. Clinica l correlation for tamponade is required. Interpretation Summary The study was technically difficult with many images being suboptimal in quality. Left ventricular systolic function is grossly normal. Small pericardial effusion (<1cm) No evidence of RV diastolic collapse to suggest tamponade. Doppler evaluation of mitral inflow was te chnically difficult and unreliable due to off axis imaging. Clinical correlation for tamponade is required. MD Rodriguez *Sayra 05/03/2018 10:44 AM
[2018-05-03 10:53] LABS: URINE APPEARANCE CLEAR; URINE BILIRUBIN NEGATIVE (<2.0 mg/dL); URINE COLOR YELLOW; URINE GLUCOSE (UA) NEGATIVE (NEGATIVE); URINE KETONE TRACE (NEGATIVE); URINE LEUK ESTERASE NEGATIVE (NEGATIVE); URINE NITRITE NEGATIVE (NEGATIVE); URINE PROTEIN NEGATIVE (NEGATIVE); URINE UROBILINOGEN 4.0 E.U/dl mg/dL (0.2-1.0)
[2018-05-03] MEDS ORDERED: PT OWN MED DRAWER 7, Y5N ONE ×2 (10:58→21:11)
[2018-05-03] MEDS ORDERED: clonazePAM 2 MG TABLET ONE (11:01)
[2018-05-03] MEDS ORDERED: clonazePAM 0.5 MG TABLET ONE (11:01)
[2018-05-03] MEDS: NICOTINE 7 MG/24 HOURS TOPICAL PATCH TD SCH (11:06)
[2018-05-03] MEDS: ESCITALOPRAM OXALATE 10 MG TABLET (FP) PO SCH (11:06)
[2018-05-03] MEDS: CLONAZEPAM PO PRN (11:08)
--- NOTE | 2018-05-03 11:38 | CON.CARD ---
Cardiology Consult (text) - Consultation Consultation Note: cc: malaise hpi: 67 m hx anxiety, copd, smoking, here with malaise, uri sxs. No cp palps dizzy loc pnd orthopnea le edema. Mild sob. No hx hrt dz. Found to have b/l pna. CT chest showed small peric eff so cards consulted. pmh: per hpi psh: tonsillectomy social: +cigs fam: no premature cad ros: per hpi; no nvd gib hematuria dysuria vision changes muscle pains meds: Home Medications Medication Instructions Recorded Clonazepam [Klonopin] 3 mg PO DAILY PRN 11/09/14 Quetiapine Fumarate "Xr" [Seroquel 300 mg PO HS 11/09/14 XR] Escitalopram Oxalate [Lexapro -] 10 mg PO BID 05/02/18 pe: Vital Signs Period Temp Pulse Resp BP Sys/Torres Pulse Ox Last 24 Hr 98.3 F-99.3 F 92-106 16-20 103-123/56-60 93-100 nad no jvd rrr s1s2 no mrg scattered rhonchi, nl eff aaox3 no le e/c/c abd nt nd pos bs no jaundice diaphoresis pos dp pt no carotid bruits Laboratory Last Values WBC 19.2 K/mm3 (4.0-10.0) H 05/03/18 06:55 RBC 3.13 M/mm3 (4.00-5.60) L 05/03/18 06:55 Hgb 8.8 GM/dL (11.7-16.9) L 05/03/18 06:55 Hct 26.8 % (35.4-49) L 05/03/18 06:55 MCV 85.8 fl (80-96) 05/03/18 06:55 MCH 28.3 pg (25.7-33.7) 05/03/18 06:55 MCHC 33.0 g/dl (32.0-35.9) 05/03/18 06:55 RDW 15.5 % (11.9-15.9) 05/03/18 06:55 Plt Count 267 K/MM3 (134-434) 05/03/18 06:55 MPV 8.0 fl (7.5-11.1) 05/03/18 06:55 Absolute Neuts (auto) 17.5 K/mm3 (1.5-8.0) H 05/03/18 06:55 Neutrophils % 91.1 % (42.8-82.8) H 05/03/18 06:55 Neutrophils % (Manual) 81.0 % (42.8-82.8) 05/03/18 06:55 Band Neutrophils % 8.0 % 05/03/18 06:55 Lymphocytes % 3.4 % (8-40) L D 05/03/18 06:55 Lymphocytes % (Manual) 7.0 % (8-40) L 05/03/18 06:55 Monocytes % 4.8 % (3.8-10.2) 05/03/18 06:55 Monocytes % (Manual) 4 % (3.8-10.2) 05/03/18 06:55 Eosinophils % 0.0 % (0-4.5) D 05/03/18 06:55 Eosinophils % (Manual) 0.0 % (0-4.5) 05/03/18 06:55 Basophils % 0.7 % (0-2.0) 05/03/18 06:55 Basophils % (Manual) 0.0 % (0-2.0) 05/03/18 06:55 Myelocytes % (Man) 0 % (0-2) 05/03/18 06:55 Promyelocytes % (Man) 0 % (0-2) 05/03/18 06:55 Blast Cells % (Manual) 0 % (0-0) 05/03/18 06:55 Nucleated RBC % 0 % (0-0) 05/03/18 06:55 Metamyelocytes 0 % (0-2) 05/03/18 06:55 Hypochromia 0 05/03/18 06:55 Platelet Estimate Normal 05/03/18 06:55 Polychromasia 0 05/03/18 06:55 Poikilocytosis 0 05/03/18 06:55 Anisocytosis 0 05/03/18 06:55 Microcytosis 0 05/03/18 06:55 Macrocytosis 0 05/03/18 06:55 Puncture Site No Result Required. 05/03/18 10:00 ABG pH 7.36 (7.35-7.45) 05/03/18 10:00 ABG pCO2 at Pt Temp 42.4 mmHg (35-45) 05/03/18 10:00 ABG pO2 at Pt Temp 77.2 mmHg (80-100) L 05/03/18 10:00 ABG HCO3 23.4 meq/L (22-26) 05/03/18 10:00 ABG O2 Sat (Measured) 93.5 % (90-98.9) 05/03/18 10:00 ABG O2 Content 15.6 % vol (15-22) 05/03/18 10:00 ABG Base Excess -1.5 meq/l (-2-2) 05/03/18 10:00 Roderick Test No Result Required. 05/03/18 10:00 Oxygen Flow Rate No Result Required. 05/03/18 10:00 Sodium 136 mmol/L (136-145) 05/03/18 06:55 Potassium 3.2 mmol/L (3.5-5.1) L 05/03/18 06:55 Chloride 102 mmol/L (98-107) 05/03/18 06:55 Carbon Dioxide 24 mmol/L (21-32) 05/03/18 06:55 Anion Gap 10 MMOL/L (8-16) 05/03/18 06:55 BUN 6 mg/dL (7-18) L 05/03/18 06:55 Creatinine 0.5 mg/dL (0.55-1.3) L 05/03/18 06:55 Creat Clearance w eGFR > 60 (>60) 05/03/18 06:55 Random Glucose 117 mg/dL (74-106) H 05/03/18 06:55 Lactic Acid 1.8 mmol/L (0.4-2.0) 05/02/18 20:30 Calcium 7.0 mg/dL (8.5-10.1) L 05/03/18 06:55 Magnesium 2.2 mg/dL (1.8-2.4) 05/02/18 13:48 Ferritin 244.5 ng/ml (8-388) 05/03/18 06:00 Total Bilirubin 0.4 mg/dL (0.2-1) 05/03/18 06:55 AST 26 U/L (15-37) 05/03/18 06:55 ALT 30 U/L (13-61) 05/03/18 06:55 Alkaline Phosphatase 77 U/L (45-117) 05/03/18 06:55 Troponin I < 0.02 ng/ml (0.00-0.05) 05/03/18 06:55 Total Protein 5.4 g/dl (6.4-8.2) L 05/03/18 06:55 Albumin 1.8 g/dl (3.4-5.0) L 05/03/18 06:55 Vitamin B12 775 pg/ml (193-986) 05/03/18 06:55 Serum Folate 16 ng/mL (3.1-17.5) 05/03/18 06:55 Urine Color Yellow 05/02/18 09:10 Urine Appearance Clear 05/02/18 09:10 Urine pH 6.0 (5.0-8.0) 05/02/18 09:10 Ur Specific [place] 1.028 (1.010-1.035) 05/02/18 09:10 Urine Protein Negative (NEGATIVE) 05/02/18 09:10 Urine Glucose (UA) Negative (NEGATIVE) 05/02/18 09:10 Urine Ketones Trace (NEGATIVE) H 05/02/18 09:10 Urine Blood Negative (NEGATIVE) 05/02/18 09:10 Urine Nitrite Negative (NEGATIVE) 05/02/18 09:10 Urine Bilirubin Negative (<2.0 mg/dL) 05/02/18 09:10 Urine Urobilinogen 4.0 e.u/dl mg/dL (0.2-1.0) 05/02/18 09:10 Ur Leukocyte Esterase Negative (NEGATIVE) 05/02/18 09:10 Stool Occult Blood Negative (NEGATIVE) 05/02/18 21:52 Influenza A (Rapid) Negative 05/02/18 13:37 Influenza B (Rapid) Negative 05/02/18 13:37 ct chest: bl pna, very small peric eff ecg: sr, nl intervals, irbbb a/p: 67 m hx anxiety, copd, smoking, here with malaise, uri sxs. pna: -abx per ID copd: -seems stable, inhalers per pulm tob use: -smoking cessation pericardial effusion: -very small peric eff reported on ct chest, likely not significant. check echo to evaluate further.
--- NOTE | 2018-05-03 13:20 | RAPID ---
Physical Examination Vital Signs: Vital Signs Temperature 98.3 F 05/03/18 09:00 Pulse Rate 125 H 05/03/18 09:00 Respiratory Rate 22 H 05/03/18 09:00 Blood Pressure 140/110 H 05/03/18 09:00 O2 Sat by Pulse Oximetry (%) 100 05/02/18 21:00 Labs: CBC, BMP 05/03/18 06:55 05/03/18 06:55 Rapid Response - Rapid Response Assessment: Rapid Response called for Tachypnea/Hypoxia with saturations reported in the 60s. Placed on nonrebreather prior to arrival. On arrival pt noted tachypnic with saturations in the 90s, stating he wanted " to get out of here" Exam Mild respiratory distress Tachycardic to 130s Tachypnic, course breath sounds throughout, no crackles or wheezes noted though Abdomen soft nontender No LE edema noted A/P Pt with PMH COPD admitted with likely pneumonia Acute hypoxia could be secondary to mucus plugging vs aspiration vs PE (less likely on lovenox) vs effusion (less likely, does not appear fluid overloaded and CXR yesterday without effusion) EKG Troponin CXR ABG Atrovent Case discussed with primary team who attended and will continue further management.
--- NOTE | 2018-05-03 13:50 | CON.ID ---
Consult Consult Specialty:: infectious diseases Referred by:: Noa Reason for Consultation:: lung abscess,sepsis - History of Present Illness History of Present Illness: patient is lethargic non responsive history obtained from the charts,primary and nursing staff 67 year old male pmh of anxiety disorder and COPD, presents with malaise for over a week. Pt reports he has been feeling more fatigued, w/ flu like symptoms for the last week. He reports accompanying productive cough w/ white sputum, chills, and anorexia. Pt denies any chest pain, sob, lightheadedness, dizziness , n/v/d, dysuria, rash or recent changes in medications. Pt is followed by [facility] for his psychiatric conditions. an rapid response was called on the patient earlier and currently patient is lethargic patient has been sick for some time and patient now non verbal and non responsive but vitals are stable - History Source History Provided By: Medical Record Limitations to Obtaining History: Clinical Condition - Past Medical History Pulmonary: Yes: COPD Psych: Yes: Anxiety, Depression, Panic Musculoskeletal: Yes: Osteoarthritis - Past Surgical History Past Surgical History: Yes: Tonsillectomy - Alcohol/Substance Use Hx Alcohol Use: No (AA since 08/2016) History of Substance Use: reports: None - Smoking History Smoking history: Current every day smoker Have you smoked in the past 12 months: Yes Aproximately how many cigarettes per day: 7 - Social History ADL: Independent History of Recent Travel: No Home Medications - Allergies Allergies/Adverse Reactions: Allergies Allergy/AdvReac Type Severity Reaction Status Date / Time azithromycin AdvReac Verified 05/02/18 12:26 - Home Medications Home Medications: Ambulatory Orders RX: Quetiapine Fumarate "Xr" [Seroquel XR] 300 mg PO HS 11/09/14 RX: Escitalopram Oxalate [Lexapro -] 10 mg PO BID 05/02/18 Amoxicillin/Potassium Clav [Augmentin 875-125 Tablet] 1 each PO BID 2 Days #4 tablet 05/12/18 RX: Albuterol 0.083% Nebulizer Meme [Ventolin 0.083% Nebulizer Soln -] 1 amp NEB Q4H PRN amp 05/12/18 RX: Budesonide/Formeterol Fumarate [SYMBICORT 160/4.5mcg -] 2 puff IH BID inhaler 05/12/18 RX: Guaifenesin [Mucinex -] 600 mg PO BID tablet.er 05/12/18 RX: Lactobacillus Acidophilus [Bacid -] 1 tab PO DAILY #2 tab 05/12/18 RX: Nicotine Patch [Nicoderm Patch -] 7 mg TD DAILY patch 05/12/18 RX: Nystatin Oral Suspension - [Nystatin Oral Susp 474208 Units/5 ML -] 500,000 units PO Q6HPO 5 Days cup 05/12/18 RX: Prednisone See Taper PO DAILY 8 Days tablet 05/12/18 RX: Quetiapine Fumarate [Seroquel -] 12.5 mg PO BID PRN tablet 05/12/18 RX: clonazePAM [Klonopin -] 0.5 mg PO TID PRN #9 tablet MDD 1.5 mg 05/12/18 Family Disease History - Family Disease History Family Disease History: Diabetes: Father, Brother (lung ca), [place]: Brother Review of Systems Unable to obtain ROS, reason: unable to obtain Physical Exam Vital Signs: Vital Signs Temperature 98.3 F 05/03/18 09:00 Pulse Rate 125 H 05/03/18 09:00 Respiratory Rate 22 H 05/03/18 09:00 Blood Pressure 140/110 H 05/03/18 09:00 O2 Sat by Pulse Oximetry (%) 100 05/02/18 21:00 Constitutional: Yes: Thin Cardiovascular: Yes: Regular Rate and Rhythm Respiratory: Yes: Mechanically Ventilated, On Nasal O2, Other Gastrointestinal: Yes: Normal Bowel Sounds, Soft Musculoskeletal: Yes: WNL Extremities: Yes: WNL Neurological: Yes: Lethargy, Other Psychiatric: Yes: Other Labs: CBC, BMP 05/03/18 06:55 05/03/18 06:55 Imaging - Results Chest X-ray: Report Reviewed, Image Reviewed Cat Scan: Report Reviewed, Image Reviewed Assessment/Plan Assessment/Plan (1) Sepsis Code(s): A41.9 - SEPSIS, UNSPECIFIED ORGANISM Qualifiers: Sepsis type: sepsis due to unspecified organism Qualified Code(s): A41.9 - Sepsis, unspecified organism (2) Pneumonia Code(s): J18.9 - PNEUMONIA, UNSPECIFIED ORGANISM Qualifiers: Pneumonia type: due to unspecified organism Laterality: right Lung location: lower lobe of lung Qualified Code(s): J18.1 - Lobar pneumonia, unspecified organism (3) Pleural effusion Code(s): J90 - PLEURAL EFFUSION, NOT ELSEWHERE CLASSIFIED (4) Metabolic encephalopathy Code(s): G93.41 - METABOLIC ENCEPHALOPATHY (5) Leukocytosis Code(s): D72.829 - ELEVATED WHITE BLOOD CELL COUNT, UNSPECIFIED (6) Hypokalemia Code(s): E87.6 - HYPOKALEMIA (7) Anemia Code(s): D64.9 - ANEMIA, UNSPECIFIED Qualifiers: Anemia type: unspecified type Qualified Code(s): D64.9 - Anemia, unspecified (8) Anxiety Code(s): F41.9 - ANXIETY DISORDER, UNSPECIFIED (9) COPD (chronic obstructive pulmonary disease) Code(s): J44.9 - CHRONIC OBSTRUCTIVE PULMONARY DISEASE, UNSPECIFIED Qualifiers: COPD type: chronic bronchitis (10) Abnormal CT of the chest Code(s): R93.89 - ABNORMAL FINDINGS ON DX IMAGING OF OTH BODY STRUCTURES (11) Tobacco dependence Code(s): F17.200 - NICOTINE DEPENDENCE, UNSPECIFIED, UNCOMPLICATED parapneumonic effusion plan will start patient on broad spectrum abx will need the fluid to be tapped close watch on the mental status asp precautions resp support await for all cx reports rest as per the team
--- NOTE | 2018-05-03 13:55 | PN ---
Progress Note, Physician Chief Complaint: Pt lying in bed, alert this am around 9:40am, rapid response was called for hypoxia to 68%, at that time. lung sounds w/ rhonchi, ABG w/ mild hypoxia. iv medrol 125mg x 1 , nebs, vanco/meropenem ordered 1330 pt reassessed, lethargic in bed, arousable. suspect 2/2 antipsych meds, lactic acid ordered. maintain aspiration precautions - Current Medication List Current Medications: Active Medications Budesonide/Formoterol Fumarate (Symbicort 160/4.5mcg -) 2 puff IH BID [facility] Clonazepam 1 mg/ Clonazepam 2 (mg) 3 mg PO DAILY PRN PRN Reason: ANXIETY Last Admin: 05/03/18 11:08 Dose: 3 mg Enoxaparin Sodium (Lovenox -) 40 mg SQ DAILY [facility] Last Admin: 05/03/18 11:06 Dose: 40 mg Escitalopram Oxalate (Lexapro -) 10 mg PO BID [facility] Last Admin: 05/03/18 11:06 Dose: 10 mg Sodium Chloride (Normal Saline -) 1,000 mls @ 100 mls/hr IV ASDIR [place] Last Admin: 05/02/18 16:20 Dose: 100 mls/hr Vancomycin HCl 1,000 mg/ (Dextrose) 250 mls @ 200 mls/hr IVPB Q24H [facility]; Protocol Piperacillin Sod/Tazobactam (Sod 4.5 gm/ Dextrose) 100 mls @ 200 mls/hr IVPB Q8H-IV [facility]; Protocol Lactobacillus Acidophilus (Bacid -) 1 tab PO DAILY [facility] Last Admin: 05/03/18 11:06 Dose: 1 tab Nicotine (Nicoderm Patch -) 7 mg TD DAILY [facility] Last Admin: 05/03/18 11:06 Dose: 7 mg Potassium Chloride (K-Dur -) 40 meq PO BID [facility] Last Admin: 05/03/18 11:06 Dose: 40 meq Quetiapine Fumarate (Seroquel Xr -) 300 mg PO HS [facility] Last Admin: 05/02/18 22:40 Dose: 300 mg Tiotropium [place] (Spiriva Respimat) 2 puff IH DAILY [facility] - Objective Vital Signs: Vital Signs Temperature 98.3 F 05/03/18 09:00 Pulse Rate 125 H 05/03/18 09:00 Respiratory Rate 22 H 05/03/18 09:00 Blood Pressure 140/110 H 05/03/18 09:00 O2 Sat by Pulse Oximetry (%) 100 05/02/18 21:00 Constitutional: Yes: Calm, Thin Cardiovascular: Yes: Regular Rate and Rhythm, Tachycardia Respiratory: Yes: Regular, Cough, On Nasal O2, Rales, Rhonchi (throughout), SOB. No: Accessory Muscle Use, Tachypnea, Wheezes Gastrointestinal: Yes: WNL, Normal Bowel Sounds, Soft. No: Distention, Tenderness Genitourinary: Yes: WNL Extremities: Yes: WNL Edema: No Neurological: Yes: Lethargy Labs: CBC, BMP 05/03/18 06:55 05/03/18 06:55 Assessment/Plan (1) Sepsis Assessment/Plan: 2/[address] reviewed- extensive rll infiltrate, multiple abscess, atelectasis, nodule tachycardic, wbc trending up 19k repeat lactic acid ordered IVF Zosyn/Vanco await blood/sputum culture urine legionella pending ID consulted Code(s): A41.9 - SEPSIS, UNSPECIFIED ORGANISM Qualifiers: Sepsis type: sepsis due to unspecified organism Qualified Code(s): A41.9 - Sepsis, unspecified organism (2) Pneumonia Assessment/Plan: as above Code(s): J18.9 - PNEUMONIA, UNSPECIFIED ORGANISM Qualifiers: Pneumonia type: due to unspecified organism Laterality: right Lung location: lower lobe of lung Qualified Code(s): J18.1 - Lobar pneumonia, unspecified organism (3) Metabolic encephalopathy Assessment/Plan: lethargic today suspect 2/2 pna vs meds head ct ordered aspiration precautions speech eval- r/o aspiration Code(s): G93.41 - METABOLIC ENCEPHALOPATHY (4) Leukocytosis Assessment/Plan: as above Code(s): D72.829 - ELEVATED WHITE BLOOD CELL COUNT, UNSPECIFIED (5) Hypokalemia Assessment/Plan: suspect 2/2 reduced po intake kcl 40meq x 2 monitor bmp Code(s): E87.6 - HYPOKALEMIA (6) Hyponatremia Assessment/Plan: resolved Code(s): E87.1 - HYPO-OSMOLALITY AND HYPONATREMIA (7) Anemia Assessment/Plan: normocytic, normochromic no obvious signs of bleeding heme occult neg iron/vitb12/folate panel pending monitor Code(s): D64.9 - ANEMIA, UNSPECIFIED Qualifiers: Anemia type: unspecified type Qualified Code(s): D64.9 - Anemia, unspecified (8) Anxiety Assessment/Plan: continue home meds decrease klonopin to avoid increased lethargy Code(s): F41.9 - ANXIETY DISORDER, UNSPECIFIED (9) COPD (chronic obstructive pulmonary disease) Assessment/Plan: chronic, severe obstructive disease on PFTs 2016 spiriva/symbicort pulm consulted Code(s): J44.9 - CHRONIC OBSTRUCTIVE PULMONARY DISEASE, UNSPECIFIED Qualifiers: COPD type: chronic bronchitis (10) Abnormal CT of the chest Assessment/Plan: worsened CT findings since 04/22 fam hx of lung ca pulm consult pending Code(s): R93.89 - ABNORMAL FINDINGS ON DX IMAGING OF OTH BODY STRUCTURES (11) Tobacco dependence Assessment/Plan: nicotine patch encourage cessation Code(s): F17.200 - NICOTINE DEPENDENCE, UNSPECIFIED, UNCOMPLICATED
[2018-05-03] MEDS ORDERED: VANCOMYCIN 1 GM PREMIX - 1 GM/200 ML BAG IVPB ONE (16:21)
--- NOTE | 2018-05-03 16:39 | CON.PULM ---
Consult Consult Specialty:: PULMONARY Referred by:: PMD Reason for Consultation:: SOB/ABN CXR - History of Present Illness Chief Complaint: SOB History of Present Illness: 67 year old male pmh of anxiety disorder and COPD, presents with malaise for over a week. Pt reports he has been feeling more fatigued, w/ flu like symptoms for the last week. He reports accompanying productive cough w/ white sputum, chills, and anorexia. Pt denies any chest pain, sob, lightheadedness, dizziness , n/v/d, dysuria, rash or recent changes in medications. Pt is followed by [facility] for his psychiatric conditions. Per outpt records, pt has refused f/u with pulm/cardiology. Socially isolated and lives by himself, has no social support. He does attend AA meetings. History Source: Medical Record - History Source History Provided By: Medical Record Limitations to Obtaining History: Clinical Condition - Past Medical History Pulmonary: Yes: COPD. No: O2 Dependent Psych: Yes: Anxiety, Depression, Panic Musculoskeletal: Yes: Osteoarthritis - Past Surgical History Past Surgical History: Yes: Tonsillectomy - Alcohol/Substance Use Hx Alcohol Use: No (AA since 08/2016) History of Substance Use: reports: None - Smoking History Smoking history: Current every day smoker Have you smoked in the past 12 months: Yes Aproximately how many cigarettes per day: 7 - Social History ADL: Independent History of Recent Travel: No Home Medications - Allergies Allergies/Adverse Reactions: Allergies Allergy/AdvReac Type Severity Reaction Status Date / Time azithromycin AdvReac Verified 05/02/18 12:26 - Home Medications Home Medications: Ambulatory Orders Clonazepam [Klonopin] 3 mg PO DAILY PRN 11/09/14 Quetiapine Fumarate "Xr" [Seroquel XR] 300 mg PO HS 11/09/14 Escitalopram Oxalate [Lexapro -] 10 mg PO BID 05/02/18 Family Disease History - Family Disease History Family Disease History: Diabetes: Father, Brother (lung ca), [place]: Brother Review of Systems Unable to obtain ROS, reason: LETHARGIC/ Physical Exam Vital Sings: Vital Signs Temperature 98.4 F 05/03/18 14:25 Pulse Rate 74 05/03/18 14:25 Respiratory Rate 24 H 05/03/18 14:25 Blood Pressure 149/68 05/03/18 14:25 O2 Sat by Pulse Oximetry (%) 100 05/03/18 12:00 Constitutional: Yes: Cachectic, Pallor Eyes: Yes: EOM Intact HENT: Yes: Normocephalic Neck: Yes: Trachea Midline Cardiovascular: Yes: Regular Rate and Rhythm, S1, S2 Respiratory: Yes: Diminished, Dullness Gastrointestinal: Yes: Normal Bowel Sounds Edema: No Neurological: Yes: Lethargy, Weakness Labs: CBC, BMP 05/03/18 06:55 05/03/18 06:55 ABG Results ABG pH 7.36 (7.35-7.45) 05/03/18 10:00 ABG pCO2 at Pt Temp 42.4 mmHg (35-45) 05/03/18 10:00 ABG pO2 at Pt Temp 77.2 mmHg (80-100) L 05/03/18 10:00 ABG HCO3 23.4 meq/L (22-26) 05/03/18 10:00 ABG O2 Sat (Measured) 93.5 % (90-98.9) 05/03/18 10:00 ABG O2 Content 15.6 % vol (15-22) 05/03/18 10:00 ABG Base Excess -1.5 meq/l (-2-2) 05/03/18 10:00 REST REVIEWED Imaging - Results Chest X-ray: Report Reviewed, Image Reviewed Cat Scan: Report Reviewed, Image Reviewed Problem List - Problems (1) Pleural effusion associated with pulmonary infection Code(s): J18.9 - PNEUMONIA, UNSPECIFIED ORGANISM; J91.8 - PLEURAL EFFUSION IN OTHER CONDITIONS CLASSIFIED ELSEWHERE (2) Abnormal CT of the chest Code(s): R93.89 - ABNORMAL FINDINGS ON DX IMAGING OF OTH BODY STRUCTURES (3) Anemia Code(s): D64.9 - ANEMIA, UNSPECIFIED Qualifiers: Anemia type: unspecified type Qualified Code(s): D64.9 - Anemia, unspecified (4) Anxiety Code(s): F41.9 - ANXIETY DISORDER, UNSPECIFIED (5) COPD (chronic obstructive pulmonary disease) Code(s): J44.9 - CHRONIC OBSTRUCTIVE PULMONARY DISEASE, UNSPECIFIED Qualifiers: COPD type: chronic bronchitis (6) Pneumonia Code(s): J18.9 - PNEUMONIA, UNSPECIFIED ORGANISM Qualifiers: Pneumonia type: due to unspecified organism Laterality: right Lung location: lower lobe of lung Qualified Code(s): J18.1 - Lobar pneumonia, unspecified organism (7) Tobacco dependence Code(s): F17.200 - NICOTINE DEPENDENCE, UNSPECIFIED, UNCOMPLICATED (8) Vertigo Code(s): R42 - DIZZINESS AND GIDDINESS Assessment/Plan CHRONICALLY ILL APPEARING MALE WITH AN ALBUMEN OF 1.6 RLL INFILTRATE WITH ASSOCIATED PLEURAL EFFUSION NEED TO R/O COMPLICATED PARA- PNEUMONIC EFFUSION/MAY REQUIRE DRAINAGE WOULD CONTINUE ANTIBIOTICS ORDERED PATIENT WILL REQUIRE THORACENTESIS IF HE CONSENTS WOULD AVOID OVER SEDATION GIVEN UNDERLYING PSYCH HISTORY CHECK CULTURES MAY NEED CLOSER MONITORING IN ICU IF CLINICAL DETERIORATION CONTINUES FOLLOW ABG AND TITRATE O2 TO KEEP SAT >90% Lauri RAY MD
[2018-05-03] MEDS: BUDESONIDE/FORMETEROL FUMARATE 160/4.5 mcg INHALER IH SCH ×2 (17:33→21:43)
[2018-05-03] MEDS: PIPERACILLIN/TAZOB 4.5 GM 4.5 GM in DEXTROSE 5%-WATER 100 ML IVPB SCH ×2 (17:40→17:47)
[2018-05-03] MEDS: SODIUM CHLORIDE 1,000 ML IV SCH ×2 (17:42→18:00)
[2018-05-03 19:21] LABS: ARTERIAL BLD GAS O2 SATURATION 95.7 % (90-98.9); ARTERIAL BLOOD GAS BASE EXCESS 1.4 meq/l (-2-2); ARTERIAL BLOOD GAS PCO2 48.3 mmHg (35-45); ARTERIAL BLOOD GAS pH 7.36 (7.35-7.45)
--- NOTE | 2018-05-03 19:21 | EKG ---
Test Reason : Blood Pressure : / mmHG Vent. Rate : 132 BPM Atrial Rate : 132 BPM P-R Int : 000 ms QRS Dur : 092 ms QT Int : 298 ms P-R-T Axes : 081 089 067 degrees QTc Int : 441 ms SINUS TACHYCARDIA WITH OCCASIONAL PREMATURE VENTRICULAR COMPLEXES AND FUSION COMPLEXES INCOMPLETE RIGHT BUNDLE BRANCH BLOCK SEPTAL INFARCT , AGE UNDETERMINED ABNORMAL ECG WHEN COMPARED WITH ECG OF 02-MAY-2018 13:32, FUSION COMPLEXES ARE NOW PRESENT PREMATURE VENTRICULAR COMPLEXES ARE NOW PRESENT VENT. RATE HAS INCREASED BY 45 BPM QUESTIONABLE CHANGE IN QRS DURATION SEPTAL INFARCT IS NOW PRESENT Confirmed by VALDO SALMON, TOMEKA ([id number]) on 05/03/2018 7:21:22 PM Referred By: CHIKA FERRELL DR Confirmed By:TOMEKA LYLE MD
[2018-05-03 19:26] LABS: ALLENS TEST POSITIVE
[2018-05-03] MEDS: POTASSIUM CHLORIDE TABS 20 MEQ TABLET.ER (FP) PO SCH (21:41)
[2018-05-03] MEDS ORDERED: ESCITALOPRAM OXALATE 10 MG TABLET (FP) PO SCH (22:00)
[2018-05-04] MEDS ORDERED: PIPERACILLIN/TAZOBACTAM 4.5 GM VIAL IVPB ONE ×3 (01:08→17:52)
[2018-05-04] MEDS ORDERED: DEXTROSE 5%-WATER 100 ML IVPB ONE ×3 (01:08→17:52)
[2018-05-04] MEDS: PIPERACILLIN/TAZOB 4.5 GM 4.5 GM in DEXTROSE 5%-WATER 100 ML IVPB SCH ×3 (01:11→18:03)
[2018-05-04] MEDS: clonazePAM 0.5 MG TABLET PO PRN (03:32)
[2018-05-04 04:13] LABS: SERUM IRON SATURATION 6 % (15-55); TOTAL IRON BINDING CAPACITY 125 ug/dL (250-450); UIBC 117 ug/dL (111-343)
[2018-05-04 06:59] LABS: ARTERIAL BLD GAS O2 SATURATION 94.2 % (90-98.9); ARTERIAL BLOOD GAS BASE EXCESS 1.9 meq/l (-2-2); ARTERIAL BLOOD GAS PCO2 38.3 mmHg (35-45); ARTERIAL BLOOD GAS PO2 70.9 mmHg (80-100); ARTERIAL BLOOD GAS pH 7.44 (7.35-7.45)
[2018-05-04 07:00] LABS: ALLENS TEST POSITIVE
[2018-05-04 07:58] LABS: BASO % 0.2 % (0-2.0); HEMATOCRIT 26.8 % (35.4-49); HEMOGLOBIN 9.3 GM/dL (11.7-16.9); LYMPH % 2.4 % (8-40); MCH 29.9 pg (25.7-33.7); MCHC 34.8 g/dl (32.0-35.9); MEAN CELL VOLUME 85.8 fl (80-96); MEAN PLT VOLUME 8.1 fl (7.5-11.1); MONO % 4.1 % (3.8-10.2); NEUT % 93.3 % (42.8-82.8); PLATELET COUNT 311 K/MM3 (134-434); RBC 3.12 M/mm3 (4.00-5.60); RDW 15.6 % (11.9-15.9); WHITE BLOOD COUNT 24.3 K/mm3 (4.0-10.0)
[2018-05-04 08:31] LABS: ANION GAP 8 MMOL/L (8-16); BLOOD UREA NITROGEN 9 mg/dL (7-18); CALCIUM 7.6 mg/dL (8.5-10.1); CHLORIDE 106 mmol/L (98-107); CO2 25 mmol/L (21-32); CREATININE 0.4 mg/dL (0.55-1.3); GLUCOSE,RANDOM 142 mg/dL (74-106); MAGNESIUM 2.6 mg/dL (1.8-2.4); PHOSPHOROUS 3.2 mg/dL (2.5-4.9); POTASSIUM 4.3 mmol/L (3.5-5.1); SODIUM 139 mmol/L (136-145)
[2018-05-04 09:54] LABS: ANISOCYTOSIS 0; MACROCYTOSIS 0; PLATELET ESTIMATE NORMAL
--- NOTE | 2018-05-04 11:30 | PN ---
Progress Note, Physician Chief Complaint: Mr Carter complains of weakness but otherwise is without complaint. No cp, sob , n/v. - Current Medication List Current Medications: Active Medications Budesonide/Formoterol Fumarate (Symbicort 160/4.5mcg -) 2 puff IH BID [facility] Last Admin: 05/03/18 21:43 Dose: 2 puff Clonazepam (Klonopin -) 1 mg PO DAILY PRN PRN Reason: ANXIETY Last Admin: 05/04/18 03:32 Dose: 1 mg Enoxaparin Sodium (Lovenox -) 40 mg SQ DAILY [facility] Escitalopram Oxalate (Lexapro -) 10 mg PO DAILY [facility] Vancomycin HCl (Vancomycin (Pre-Docked)) 1,000 mg in 250 mls @ 166.667 mls/hr IVPB Q24H [facility]; Protocol Piperacillin Sod/Tazobactam (Sod 4.5 gm/ Dextrose) 100 mls @ 200 mls/hr IVPB Q8H-IV [facility]; Protocol Last Admin: 05/04/18 01:11 Dose: 200 mls/hr Sodium Chloride (Normal Saline -) 1,000 mls @ 100 mls/hr IV ASDIR [facility] Last Admin: 05/03/18 17:42 Dose: 100 mls/hr Lactobacillus Acidophilus (Bacid -) 1 tab PO DAILY [facility] Nicotine (Nicoderm Patch -) 7 mg TD DAILY [facility] Potassium Chloride (K-Dur -) 40 meq PO BID [facility] Last Admin: 05/03/18 21:41 Dose: 40 meq Quetiapine Fumarate (Seroquel Xr -) 200 mg PO HS [facility] Last Admin: 05/03/18 21:42 Dose: 200 mg Tiotropium [place] (Spiriva Respimat) 2 puff IH DAILY [facility] - Objective Vital Signs: Vital Signs Temperature 36.3 C L 05/04/18 06:00 Pulse Rate 71 05/04/18 06:00 Respiratory Rate 20 05/04/18 06:00 Blood Pressure 100/62 05/04/18 06:00 O2 Sat by Pulse Oximetry (%) 96 05/04/18 09:00 Constitutional: Yes: Well Nourished, No Distress, Calm Cardiovascular: Yes: Regular Rate and Rhythm. No: Gallop, Murmur, Rub Respiratory: Yes: Regular, On Nasal O2, Rhonchi (R>L). No: CTA Bilaterally, Rales, Wheezes Gastrointestinal: Yes: Normal Bowel Sounds, Soft. No: Distention, Tenderness Extremities: Yes: WNL Edema: No Labs: CBC, BMP 05/04/18 07:00 05/04/18 07:00 Assessment/Plan (1) Sepsis Assessment/Plan: -with increased leukocytosis -continue vancomycin and zosyn -continue hydration -ID following Code(s): A41.9 - SEPSIS, UNSPECIFIED ORGANISM Qualifiers: Sepsis type: sepsis due to unspecified organism Qualified Code(s): A41.9 - Sepsis, unspecified organism (2) Pneumonia, concern for empyema Assessment/Plan: -case d/w pulmonary -concern for empyema -continue antibiotics -may need thoracentesis Code(s): J18.9 - PNEUMONIA, UNSPECIFIED ORGANISM Qualifiers: Pneumonia type: due to unspecified organism Laterality: right Lung location: lower lobe of lung Qualified Code(s): J18.1 - Lobar pneumonia, unspecified organism (3) Metabolic encephalopathy Assessment/Plan: -much improved today -monitor Code(s): G93.41 - METABOLIC ENCEPHALOPATHY (4) Leukocytosis Assessment/Plan: -worsening Code(s): D72.829 - ELEVATED WHITE BLOOD CELL COUNT, UNSPECIFIED (5) Hypokalemia Assessment/Plan: -replaced Code(s): E87.6 - HYPOKALEMIA (6) Hyponatremia Assessment/Plan: -resolved Code(s): E87.1 - HYPO-OSMOLALITY AND HYPONATREMIA (7) Anemia Assessment/Plan: -stable -serum B12 and folate normal -AOCD Code(s): D64.9 - ANEMIA, UNSPECIFIED Qualifiers: Anemia type: unspecified type Qualified Code(s): D64.9 - Anemia, unspecified (8) Anxiety Assessment/Plan: -continue home meds -decreased klonopin to avoid increased lethargy Code(s): F41.9 - ANXIETY DISORDER, UNSPECIFIED (9) COPD (chronic obstructive pulmonary disease) Assessment/Plan: -chronic, severe obstructive disease on PFTs 2016 -continue spiriva/symbicort -case d/w Dr Walter Code(s): J44.9 - CHRONIC OBSTRUCTIVE PULMONARY DISEASE, UNSPECIFIED Qualifiers: COPD type: chronic bronchitis (10) Abnormal CT of the chest Assessment/Plan: -as above Code(s): R93.89 - ABNORMAL FINDINGS ON DX IMAGING OF OTH BODY STRUCTURES (11) Tobacco dependence Assessment/Plan: -nicotine patch -encourage cessation Code(s): F17.200 - NICOTINE DEPENDENCE, UNSPECIFIED, UNCOMPLICATED
--- NOTE | 2018-05-04 12:07 | PN ---
Progress Note (short form) - Note Progress Note: s: no cp palps dizzy; sob and cough a little better o: Vital Signs Period Temp Pulse Resp BP Sys/Torres Pulse Ox Last 24 Hr 97.4 F-98.4 F 71-84 20-24 97-149/56-68 96-99 nad no jvd rrr s1s2 no mrg scattered rhonchi, nl eff aaox3 no le e/c/c abd nt nd pos bs no jaundice diaphoresis Current Medications Generic Name Dose Route Start Last Admin Trade Name Freq PRN Reason Stop Dose Admin Budesonide/Formoterol Fumarate 2 puff 05/03/18 11:00 05/03/18 21:43 Symbicort 160/4.5mcg - IH 2 puff BID [facility] Administration Clonazepam 1 mg 05/03/18 14:05 05/04/18 03:32 Klonopin - PO 1 mg DAILY PRN Administration ANXIETY Enoxaparin Sodium 40 mg 05/04/18 10:00 Lovenox - SQ DAILY [facility] Escitalopram Oxalate 10 mg 05/04/18 10:00 Lexapro - PO DAILY [facility] Vancomycin HCl 1,000 mg in 250 mls @ 166.667 mls/hr 05/04/18 14:00 Vancomycin (Pre-Docked) IVPB Q24H [facility] Protocol Piperacillin Sod/Tazobactam 100 mls @ 200 mls/hr 05/03/18 14:00 05/04/18 01: 11 Sod 4.5 gm/ Dextrose IVPB 200 mls/hr Q8H-IV [facility] Administration Protocol Sodium Chloride 1,000 mls @ 100 mls/hr 05/03/18 16:21 05/03/18 17:42 Normal Saline - IV 100 mls/hr ASDIR [facility] Administration Lactobacillus Acidophilus 1 tab 05/04/18 10:00 Bacid - PO DAILY [facility] Nicotine 7 mg 05/04/18 10:00 Nicoderm Patch - TD DAILY [facility] Potassium Chloride 40 meq 05/03/18 22:00 05/03/18 21:41 K-Dur - PO 40 meq BID [facility] Administration Quetiapine Fumarate 200 mg 05/03/18 22:00 05/03/18 21:42 Seroquel Xr - PO 200 mg HS [facility] Administration Tiotropium [place] 2 puff 05/04/18 10:00 Spiriva Respimat IH DAILY [facility] CBC, BMP 05/04/18 07:00 05/04/18 07:00 ct chest: bl pna, very small peric eff ecg: sr, nl intervals, irbbb echo 04/2018: tds, nl lv/rv, small peric eff, valves not mentioned tele: sr a/p: 67 m hx anxiety, copd, smoking, here with malaise, uri sxs. pna: -abx per ID copd: -seems stable, inhalers per pulm tob use: -smoking cessation pericardial effusion: -small peric eff, no signs of tamponade. Repeat echo after acute issues resolved as outpt.
[2018-05-04] MEDS: NICOTINE 7 MG/24 HOURS TOPICAL PATCH TD SCH (12:12)
[2018-05-04] MEDS: POTASSIUM CHLORIDE TABS 20 MEQ TABLET.ER (FP) PO SCH ×2 (12:12→21:26)
[2018-05-04] MEDS: ESCITALOPRAM OXALATE 10 MG TABLET (FP) PO SCH (12:13)
[2018-05-04] MEDS: BUDESONIDE/FORMETEROL FUMARATE 160/4.5 mcg INHALER IH SCH ×2 (12:13→21:32)
[2018-05-04] MEDS: TIOTROPIUM BROMIDE 2.5 MCG (SPIRIVA) RESPIMAT INHALER IH SCH (12:13)
[2018-05-04] MEDS: LACTOBACILLUS ACIDOPHILUS 1 TABLET PO SCH (12:13)
[2018-05-04] MEDS: ENOXAPARIN NA (PORCINE) 40 MG/0.4 ML DISP.SYRIN SQ SCH (12:14)
--- NOTE | 2018-05-04 13:34 | PN ---
Progress Note (short form) - Note Progress Note: PULMONARY NO SIGNIFICANT CHANGE IN EXAM VS/AFEB PALE ANICTERIC DIMINISHED BREATH SOUNDS RIGHT BASE S1S2 BS+ NO EDEMA WBC RISING DESPITE ANTIBIOTICS ABG NOTED CHRONICALLY ILL APPEARING MALE WITH AN ALBUMEN OF 1.6 RLL INFILTRATE WITH ASSOCIATED PLEURAL EFFUSION NEED TO R/O COMPLICATED PARA- PNEUMONIC EFFUSION/MAY REQUIRE DRAINAGE WOULD CONTINUE ANTIBIOTICS ORDERED PATIENT WILL REQUIRE THORACENTESIS IF HE CONSENTS WOULD AVOID OVER SEDATION GIVEN UNDERLYING PSYCH HISTORY CHECK CULTURES FOLLOW ABG AND TITRATE O2 TO KEEP SAT >90% Lauri RAY MD Problem List - Problems (1) Pleural effusion associated with pulmonary infection Code(s): J18.9 - PNEUMONIA, UNSPECIFIED ORGANISM; J91.8 - PLEURAL EFFUSION IN OTHER CONDITIONS CLASSIFIED ELSEWHERE (2) Abnormal CT of the chest Code(s): R93.89 - ABNORMAL FINDINGS ON DX IMAGING OF OTH BODY STRUCTURES (3) Anemia Code(s): D64.9 - ANEMIA, UNSPECIFIED Qualifiers: Anemia type: unspecified type Qualified Code(s): D64.9 - Anemia, unspecified (4) Anxiety Code(s): F41.9 - ANXIETY DISORDER, UNSPECIFIED (5) COPD (chronic obstructive pulmonary disease) Code(s): J44.9 - CHRONIC OBSTRUCTIVE PULMONARY DISEASE, UNSPECIFIED Qualifiers: COPD type: chronic bronchitis (6) Pneumonia Code(s): J18.9 - PNEUMONIA, UNSPECIFIED ORGANISM Qualifiers: Pneumonia type: due to unspecified organism Laterality: right Lung location: lower lobe of lung Qualified Code(s): J18.1 - Lobar pneumonia, unspecified organism (7) Tobacco dependence Code(s): F17.200 - NICOTINE DEPENDENCE, UNSPECIFIED, UNCOMPLICATED (8) Vertigo Code(s): R42 - DIZZINESS AND GIDDINESS
[2018-05-04] MEDS: VANCOMYCIN 1 GRAM (PRE-DOCKED) 1,000 MG/250 ML BAG IVPB SCH (14:33)
--- NOTE | 2018-05-04 14:49 | PN ---
Progress Note, Physician History of Present Illness: patient looks better today more awake and alert looks comfortable looks in no distress now - Current Medication List Current Medications: Active Medications Budesonide/Formoterol Fumarate (Symbicort 160/4.5mcg -) 2 puff IH BID [facility] Last Admin: 05/04/18 12:13 Dose: 2 puff Clonazepam (Klonopin -) 1 mg PO DAILY PRN PRN Reason: ANXIETY Last Admin: 05/04/18 03:32 Dose: 1 mg Enoxaparin Sodium (Lovenox -) 40 mg SQ DAILY [facility] Last Admin: 05/04/18 12:14 Dose: 40 mg Escitalopram Oxalate (Lexapro -) 10 mg PO DAILY [facility] Last Admin: 05/04/18 12:13 Dose: 10 mg Vancomycin HCl (Vancomycin (Pre-Docked)) 1,000 mg in 250 mls @ 166.667 mls/hr IVPB Q24H [facility]; Protocol Last Admin: 05/04/18 14:33 Dose: 166.667 mls/hr Piperacillin Sod/Tazobactam (Sod 4.5 gm/ Dextrose) 100 mls @ 200 mls/hr IVPB Q8H-IV [facility]; Protocol Last Admin: 05/04/18 12:12 Dose: 200 mls/hr Sodium Chloride (Normal Saline -) 1,000 mls @ 100 mls/hr IV ASDIR [facility] Last Admin: 05/03/18 17:42 Dose: 100 mls/hr Lactobacillus Acidophilus (Bacid -) 1 tab PO DAILY [facility] Last Admin: 05/04/18 12:13 Dose: 1 tab Nicotine (Nicoderm Patch -) 7 mg TD DAILY [facility] Last Admin: 05/04/18 12:12 Dose: 7 mg Potassium Chloride (K-Dur -) 40 meq PO BID [facility] Last Admin: 05/04/18 12:12 Dose: 40 meq Quetiapine Fumarate (Seroquel Xr -) 200 mg PO HS [facility] Last Admin: 05/03/18 21:42 Dose: 200 mg Tiotropium [place] (Spiriva Respimat) 2 puff IH DAILY [facility] Last Admin: 05/04/18 12:13 Dose: 2 puff - Objective Vital Signs: Vital Signs Temperature 97.4 F L 05/04/18 06:00 Pulse Rate 92 H 05/04/18 12:00 Respiratory Rate 18 05/04/18 12:00 Blood Pressure 138/92 05/04/18 12:00 O2 Sat by Pulse Oximetry (%) 96 05/04/18 09:00 Constitutional: Yes: No Distress, Calm Cardiovascular: Yes: Regular Rate and Rhythm Respiratory: Yes: On Nasal O2, Poor Air Entry, Other Gastrointestinal: Yes: Normal Bowel Sounds, Soft Musculoskeletal: Yes: WNL Extremities: Yes: WNL Neurological: Yes: Alert Psychiatric: Yes: Alert Labs: CBC, BMP 05/04/18 07:00 05/04/18 07:00 Assessment/Plan Assessment/Plan (1) Sepsis Code(s): A41.9 - SEPSIS, UNSPECIFIED ORGANISM Qualifiers: Sepsis type: sepsis due to unspecified organism Qualified Code(s): A41.9 - Sepsis, unspecified organism (2) Pneumonia Code(s): J18.9 - PNEUMONIA, UNSPECIFIED ORGANISM Qualifiers: Pneumonia type: due to unspecified organism Laterality: right Lung location: lower lobe of lung Qualified Code(s): J18.1 - Lobar pneumonia, unspecified organism (3) Pleural effusion Code(s): J90 - PLEURAL EFFUSION, NOT ELSEWHERE CLASSIFIED (4) Metabolic encephalopathy Code(s): G93.41 - METABOLIC ENCEPHALOPATHY (5) Leukocytosis Code(s): D72.829 - ELEVATED WHITE BLOOD CELL COUNT, UNSPECIFIED (6) Hypokalemia Code(s): E87.6 - HYPOKALEMIA (7) Anemia Code(s): D64.9 - ANEMIA, UNSPECIFIED Qualifiers: Anemia type: unspecified type Qualified Code(s): D64.9 - Anemia, unspecified (8) Anxiety Code(s): F41.9 - ANXIETY DISORDER, UNSPECIFIED (9) COPD (chronic obstructive pulmonary disease) Code(s): J44.9 - CHRONIC OBSTRUCTIVE PULMONARY DISEASE, UNSPECIFIED Qualifiers: COPD type: chronic bronchitis (10) Abnormal CT of the chest Code(s): R93.89 - ABNORMAL FINDINGS ON DX IMAGING OF OTH BODY STRUCTURES (11) Tobacco dependence Code(s): F17.200 - NICOTINE DEPENDENCE, UNSPECIFIED, UNCOMPLICATED parapneumonic effusion plan continue abx pul on board awaiting thoracocentesis incentive sally
[2018-05-04 15:40] VITALS: BMI 21.8
[2018-05-04] MEDS: SODIUM CHLORIDE 1,000 ML IV SCH (20:00)
[2018-05-05] MEDS ORDERED: PIPERACILLIN/TAZOBACTAM 4.5 GM VIAL IVPB ONE ×3 (01:44→16:36)
[2018-05-05] MEDS ORDERED: DEXTROSE 5%-WATER 100 ML IVPB ONE ×3 (01:45→16:36)
[2018-05-05] MEDS: PIPERACILLIN/TAZOB 4.5 GM 4.5 GM in DEXTROSE 5%-WATER 100 ML IVPB SCH ×3 (02:06→17:06)
[2018-05-05 07:15] LABS: BASO % 0.3 % (0-2.0); EOS % 0.1 % (0-4.5); HEMATOCRIT 27.3 % (35.4-49); HEMOGLOBIN 8.8 GM/dL (11.7-16.9); LYMPH % 3.5 % (8-40); MCH 28.2 pg (25.7-33.7); MCHC 32.4 g/dl (32.0-35.9); MEAN CELL VOLUME 87.1 fl (80-96); MEAN PLT VOLUME 7.8 fl (7.5-11.1); MONO % 5.3 % (3.8-10.2); NEUT % 90.8 % (42.8-82.8); PLATELET COUNT 327 K/MM3 (134-434); RBC 3.13 M/mm3 (4.00-5.60); RDW 16.2 % (11.9-15.9); WHITE BLOOD COUNT 21.7 K/mm3 (4.0-10.0)
[2018-05-05 07:37] LABS: ANION GAP 5 MMOL/L (8-16); BLOOD UREA NITROGEN 9 mg/dL (7-18); CALCIUM 7.6 mg/dL (8.5-10.1); CHLORIDE 107 mmol/L (98-107); CO2 27 mmol/L (21-32); CREATININE 0.5 mg/dL (0.55-1.3); GLUCOSE,RANDOM 113 mg/dL (74-106); MAGNESIUM 2.6 mg/dL (1.8-2.4); PHOSPHOROUS 2.7 mg/dL (2.5-4.9); POTASSIUM 4.2 mmol/L (3.5-5.1); SODIUM 139 mmol/L (136-145)
[2018-05-05] MEDS: SODIUM CHLORIDE 1,000 ML IV SCH ×2 (07:40→21:25)
[2018-05-05] MEDS: clonazePAM 0.5 MG TABLET PO PRN (07:45)
[2018-05-05] MEDS: BUDESONIDE/FORMETEROL FUMARATE 160/4.5 mcg INHALER IH SCH ×2 (09:36→21:21)
[2018-05-05] MEDS: NICOTINE 7 MG/24 HOURS TOPICAL PATCH TD SCH (09:40)
[2018-05-05] MEDS: LACTOBACILLUS ACIDOPHILUS 1 TABLET PO SCH (09:40)
[2018-05-05] MEDS: POTASSIUM CHLORIDE TABS 20 MEQ TABLET.ER (FP) PO SCH (09:40)
[2018-05-05] MEDS: ESCITALOPRAM OXALATE 10 MG TABLET (FP) PO SCH (09:40)
[2018-05-05] MEDS: ENOXAPARIN NA (PORCINE) 40 MG/0.4 ML DISP.SYRIN SQ SCH (09:40)
[2018-05-05 10:38] LABS: ANISOCYTOSIS 0; MACROCYTOSIS 0; PLATELET ESTIMATE NORMAL
--- NOTE | 2018-05-05 11:02 | PN ---
Progress Note (short form) - Note Progress Note: s: no cp palps dizzy; sob and cough persist, feels weak o: Vital Signs Period Temp Pulse Resp BP Sys/Torres Pulse Ox Last 24 Hr 97.8 F-98.2 F 90-98 18-20 111-138/62-92 97 nad no jvd rrr s1s2 no mrg scattered rhonchi, nl eff aaox3 no le e/c/c abd nt nd pos bs no jaundice diaphoresis Current Medications Generic Name Dose Route Start Last Admin Trade Name Freq PRN Reason Stop Dose Admin Budesonide/Formoterol Fumarate 2 puff 05/03/18 11:00 05/05/18 09:36 Symbicort 160/4.5mcg - IH 2 puff BID [facility] Administration Clonazepam 1 mg 05/03/18 14:05 05/05/18 07:45 Klonopin - PO 1 mg DAILY PRN Administration ANXIETY Enoxaparin Sodium 40 mg 05/04/18 10:00 05/05/18 09:40 Lovenox - SQ 40 mg DAILY [facility] Administration Escitalopram Oxalate 10 mg 05/04/18 10:00 05/05/18 09:40 Lexapro - PO 10 mg DAILY [facility] Administration Vancomycin HCl 1,000 mg in 250 mls @ 166.667 mls/hr 05/04/18 14:00 05/04/18 14:33 Vancomycin (Pre-Docked) IVPB 166.667 mls/hr Q24H [facility] Administration Protocol Piperacillin Sod/Tazobactam 100 mls @ 200 mls/hr 05/03/18 14:00 05/05/18 09: 40 Sod 4.5 gm/ Dextrose IVPB 200 mls/hr Q8H-IV [facility] Administration Protocol Sodium Chloride 1,000 mls @ 100 mls/hr 05/03/18 16:21 05/05/18 07:40 Normal Saline - IV 100 mls/hr ASDIR [facility] Administration Lactobacillus Acidophilus 1 tab 05/04/18 10:00 05/05/18 09:40 Bacid - PO 1 tab DAILY [facility] Administration Nicotine 7 mg 05/04/18 10:00 05/05/18 09:40 Nicoderm Patch - TD 7 mg DAILY [facility] Administration Potassium Chloride 40 meq 05/06/18 10:00 K-Dur - PO DAILY [facility] Quetiapine Fumarate 200 mg 05/03/18 22:00 05/04/18 21:27 Seroquel Xr - PO 200 mg HS [facility] Administration Tiotropium [place] 2 puff 05/04/18 10:00 05/04/18 12:13 Spiriva Respimat IH 2 puff DAILY [facility] Administration CBC, BMP 05/05/18 06:15 05/05/18 06:15 ct chest: bl pna, very small peric eff ecg: sr, nl intervals, irbbb echo 04/2018: tds, nl lv/rv, small peric eff, valves not mentioned tele: sr a/p: 67 m hx anxiety, copd, smoking, here with malaise, uri sxs. pna: -abx per ID copd: -seems stable, inhalers per pulm tob use: -smoking cessation pericardial effusion: -small peric eff, no signs of tamponade. Repeat echo after acute issues resolved as outpt. dc tele
--- NOTE | 2018-05-05 12:17 | CONSULT ---
Consult Consult Specialty:: Hematology Referred by:: Medicine Reason for Consultation:: Iron deficiency - History of Present Illness Chief Complaint: Consulted for 'severe iron deficiency' History of Present Illness: Patient with history of CPD, generalized anxiety disorder, admitted recently for pneumonia, noted to have mild normocytic anemia. Recent iron panel reveal low serum iron. Patient unaware of any hematological issues. Unaware of any iron issues. Denies history of melena, BRBPR, hematuria. Denies pica or pagophagia. Reports ongoing generalized weakness. - History Source History Provided By: Patient, Medical Record Limitations to Obtaining History: Poor Historian - Past Medical History Pulmonary: Yes: COPD. No: O2 Dependent Psych: Yes: Anxiety, Depression, Panic Musculoskeletal: Yes: Osteoarthritis - Past Surgical History Past Surgical History: Yes: Tonsillectomy - Alcohol/Substance Use Hx Alcohol Use: No History of Substance Use: reports: None - Smoking History Smoking history: Current every day smoker Have you smoked in the past 12 months: Yes Aproximately how many cigarettes per day: 7 - Social History ADL: Independent History of Recent Travel: No Home Medications - Allergies Allergies/Adverse Reactions: Allergies Allergy/AdvReac Type Severity Reaction Status Date / Time azithromycin AdvReac Verified 05/02/18 12:26 - Home Medications Home Medications: Ambulatory Orders Clonazepam [Klonopin] 3 mg PO DAILY PRN 11/09/14 Quetiapine Fumarate "Xr" [Seroquel XR] 300 mg PO HS 11/09/14 Escitalopram Oxalate [Lexapro -] 10 mg PO BID 05/02/18 Family Disease History - Family Disease History Family Disease History: Diabetes: Father, Brother (lung ca), [place]: Brother Review of Systems - Review of Systems Constitutional: reports: Loss of Appetite, Weakness HENT: reports: No Symptoms Neck: reports: No Symptoms Cardiovascular: reports: Shortness of Breath. denies: Chest Pain Respiratory: reports: Cough, SOB Gastrointestinal: denies: Abdominal Pain, Melena, Rectal Bleeding, Vomiting Blood Musculoskeletal: reports: Muscle Weakness Neurological: reports: Pre-Existing Deficit, Unsteady Gait Hematology/Lymphatic: denies: Easily Bruised, Excessive Bleeding Psychiatric: reports: Anxiety Physical Exam Vital Signs: Vital Signs Temperature 98.2 F 05/05/18 09:00 Pulse Rate 95 H 05/05/18 09:00 Respiratory Rate 20 05/05/18 09:00 Blood Pressure 121/66 05/05/18 09:00 O2 Sat by Pulse Oximetry (%) 97 05/05/18 09:40 Constitutional: Yes: Anxious, Moderate Distress Eyes: Yes: Conjunctiva Clear HENT: Yes: WNL Cardiovascular: Yes: Regular Rate and Rhythm Respiratory: Yes: Regular, Diminished, Rales Gastrointestinal: Yes: Normal Bowel Sounds. No: Distention, Palpable Mass Musculoskeletal: Yes: WNL Edema: No Labs: CBC, BMP 05/05/18 06:15 05/05/18 06:15 Assessment/Plan Normocytic anemia with low iron saturation. Iron deficiency is unlikely, in that ferritin is >500, and TIBC is low. Finding are more consistent with anemia of inflammation (aka anemia of chronic disease). No role for supplemental iron. Dedicated workup for anemia not likely to be rewarding at this time, while acutely ill. Recommend evaluation when at baseline - if anemia is persistent at that time, ( that is as outpatient) - then appropriate workup can be pursued. Age appropriate colon cancer screening
--- NOTE | 2018-05-05 12:34 | PN ---
Progress Note (short form) - Note Progress Note: PULMONARY NO SIGNIFICANT CHANGE IN EXAM VS/AFEB PALE ANICTERIC DIMINISHED BREATH SOUNDS RIGHT BASE S1S2 BS+ NO EDEMA WBC 21.7 DESPITE ANTIBIOTICS ABG NOTED CHRONICALLY ILL APPEARING MALE WITH AN ALBUMEN OF 1.6 RLL INFILTRATE WITH ASSOCIATED PLEURAL EFFUSION NEED TO R/O COMPLICATED PARA- PNEUMONIC EFFUSION/MAY REQUIRE DRAINAGE WOULD CONTINUE ANTIBIOTICS ORDERED PATIENT WILL REQUIRE THORACENTESIS IF HE CONSENTS WOULD AVOID OVER SEDATION GIVEN UNDERLYING PSYCH HISTORY CHECK CULTURES NO GROWTH THUS FAR FOLLOW ABG AND TITRATE O2 TO KEEP SAT >90% HEME EVAL NOTED R CORY SALMON Problem List - Problems (1) Pleural effusion associated with pulmonary infection Code(s): J18.9 - PNEUMONIA, UNSPECIFIED ORGANISM; J91.8 - PLEURAL EFFUSION IN OTHER CONDITIONS CLASSIFIED ELSEWHERE (2) Abnormal CT of the chest Code(s): R93.89 - ABNORMAL FINDINGS ON DX IMAGING OF OTH BODY STRUCTURES (3) Anemia Code(s): D64.9 - ANEMIA, UNSPECIFIED Qualifiers: Anemia type: unspecified type Qualified Code(s): D64.9 - Anemia, unspecified (4) Anxiety Code(s): F41.9 - ANXIETY DISORDER, UNSPECIFIED (5) COPD (chronic obstructive pulmonary disease) Code(s): J44.9 - CHRONIC OBSTRUCTIVE PULMONARY DISEASE, UNSPECIFIED Qualifiers: COPD type: chronic bronchitis (6) Pneumonia Code(s): J18.9 - PNEUMONIA, UNSPECIFIED ORGANISM Qualifiers: Pneumonia type: due to unspecified organism Laterality: right Lung location: lower lobe of lung Qualified Code(s): J18.1 - Lobar pneumonia, unspecified organism (7) Tobacco dependence Code(s): F17.200 - NICOTINE DEPENDENCE, UNSPECIFIED, UNCOMPLICATED (8) Vertigo Code(s): R42 - DIZZINESS AND GIDDINESS
[2018-05-05] MEDS: VANCOMYCIN 1 GRAM (PRE-DOCKED) 1,000 MG/250 ML BAG IVPB SCH (13:50)
--- NOTE | 2018-05-05 15:45 | PN ---
Progress Note, Physician History of Present Illness: patient looks better today no complaints stable - Current Medication List Current Medications: Active Medications Budesonide/Formoterol Fumarate (Symbicort 160/4.5mcg -) 2 puff IH BID [facility] Last Admin: 05/05/18 09:36 Dose: 2 puff Clonazepam (Klonopin -) 1 mg PO DAILY PRN PRN Reason: ANXIETY Last Admin: 05/05/18 07:45 Dose: 1 mg Enoxaparin Sodium (Lovenox -) 40 mg SQ DAILY [facility] Last Admin: 05/05/18 09:40 Dose: 40 mg Escitalopram Oxalate (Lexapro -) 10 mg PO DAILY [facility] Last Admin: 05/05/18 09:40 Dose: 10 mg Vancomycin HCl (Vancomycin (Pre-Docked)) 1,000 mg in 250 mls @ 166.667 mls/hr IVPB Q24H [facility]; Protocol Last Admin: 05/05/18 13:50 Dose: 166.667 mls/hr Piperacillin Sod/Tazobactam (Sod 4.5 gm/ Dextrose) 100 mls @ 200 mls/hr IVPB Q8H-IV [facility]; Protocol Last Admin: 05/05/18 09:40 Dose: 200 mls/hr Sodium Chloride (Normal Saline -) 1,000 mls @ 100 mls/hr IV ASDIR [facility] Last Admin: 05/05/18 07:40 Dose: 100 mls/hr Lactobacillus Acidophilus (Bacid -) 1 tab PO DAILY [facility] Last Admin: 05/05/18 09:40 Dose: 1 tab Nicotine (Nicoderm Patch -) 7 mg TD DAILY [facility] Last Admin: 05/05/18 09:40 Dose: 7 mg Potassium Chloride (K-Dur -) 40 meq PO DAILY [facility] Quetiapine Fumarate (Seroquel Xr -) 200 mg PO HS [facility] Last Admin: 05/04/18 21:27 Dose: 200 mg Tiotropium [place] (Spiriva Respimat) 2 puff IH DAILY [facility] Last Admin: 05/04/18 12:13 Dose: 2 puff - Objective Vital Signs: Vital Signs Temperature 98.0 F 05/05/18 14:00 Pulse Rate 100 H 05/05/18 14:00 Respiratory Rate 20 05/05/18 14:00 Blood Pressure 130/80 05/05/18 14:00 O2 Sat by Pulse Oximetry (%) 97 05/05/18 09:40 Constitutional: Yes: No Distress, Calm Gastrointestinal: Yes: Normal Bowel Sounds, Soft Extremities: Yes: WNL Neurological: Yes: Alert Psychiatric: Yes: Alert Labs: CBC, BMP 05/05/18 06:15 05/05/18 06:15 Assessment/Plan Assessment/Plan (1) Sepsis Code(s): A41.9 - SEPSIS, UNSPECIFIED ORGANISM Qualifiers: Sepsis type: sepsis due to unspecified organism Qualified Code(s): A41.9 - Sepsis, unspecified organism (2) Pneumonia Code(s): J18.9 - PNEUMONIA, UNSPECIFIED ORGANISM Qualifiers: Pneumonia type: due to unspecified organism Laterality: right Lung location: lower lobe of lung Qualified Code(s): J18.1 - Lobar pneumonia, unspecified organism (3) Pleural effusion Code(s): J90 - PLEURAL EFFUSION, NOT ELSEWHERE CLASSIFIED (4) Metabolic encephalopathy Code(s): G93.41 - METABOLIC ENCEPHALOPATHY (5) Leukocytosis Code(s): D72.829 - ELEVATED WHITE BLOOD CELL COUNT, UNSPECIFIED (6) Hypokalemia Code(s): E87.6 - HYPOKALEMIA (7) Anemia Code(s): D64.9 - ANEMIA, UNSPECIFIED Qualifiers: Anemia type: unspecified type Qualified Code(s): D64.9 - Anemia, unspecified (8) Anxiety Code(s): F41.9 - ANXIETY DISORDER, UNSPECIFIED (9) COPD (chronic obstructive pulmonary disease) Code(s): J44.9 - CHRONIC OBSTRUCTIVE PULMONARY DISEASE, UNSPECIFIED Qualifiers: COPD type: chronic bronchitis (10) Abnormal CT of the chest Code(s): R93.89 - ABNORMAL FINDINGS ON DX IMAGING OF OTH BODY STRUCTURES (11) Tobacco dependence Code(s): F17.200 - NICOTINE DEPENDENCE, UNSPECIFIED, UNCOMPLICATED parapneumonic effusion plan continue abx pul on board awaiting thoracocentesis incentive sally
[2018-05-05] MEDS ORDERED: ACETAMINOPHEN 325 MG TABLET (FP) PO PRN (15:53)
[2018-05-05] MEDS ORDERED: PT OWN MED DRAWER 7, Y5N ONE (16:42)
--- NOTE | 2018-05-05 16:42 | PN ---
Progress Note, Physician Chief Complaint: Mr Carter complains of pain with coughing and anxiety. No sob or n/v. - Current Medication List Current Medications: Active Medications Acetaminophen (Tylenol -) 650 mg PO Q4H PRN PRN Reason: PAIN Budesonide/Formoterol Fumarate (Symbicort 160/4.5mcg -) 2 puff IH BID [facility] Last Admin: 05/05/18 09:36 Dose: 2 puff Clonazepam (Klonopin -) 1 mg PO DAILY PRN PRN Reason: ANXIETY Last Admin: 05/05/18 07:45 Dose: 1 mg Enoxaparin Sodium (Lovenox -) 40 mg SQ DAILY [facility] Last Admin: 05/05/18 09:40 Dose: 40 mg Escitalopram Oxalate (Lexapro -) 10 mg PO DAILY [facility] Last Admin: 05/05/18 09:40 Dose: 10 mg Vancomycin HCl (Vancomycin (Pre-Docked)) 1,000 mg in 250 mls @ 166.667 mls/hr IVPB Q24H [facility]; Protocol Last Admin: 05/05/18 13:50 Dose: 166.667 mls/hr Piperacillin Sod/Tazobactam (Sod 4.5 gm/ Dextrose) 100 mls @ 200 mls/hr IVPB Q8H-IV [facility]; Protocol Last Admin: 05/05/18 09:40 Dose: 200 mls/hr Sodium Chloride (Normal Saline -) 1,000 mls @ 100 mls/hr IV ASDIR [facility] Last Admin: 05/05/18 07:40 Dose: 100 mls/hr Lactobacillus Acidophilus (Bacid -) 1 tab PO DAILY [facility] Last Admin: 05/05/18 09:40 Dose: 1 tab Nicotine (Nicoderm Patch -) 7 mg TD DAILY [facility] Last Admin: 05/05/18 09:40 Dose: 7 mg Potassium Chloride (K-Dur -) 40 meq PO DAILY [facility] Quetiapine Fumarate (Seroquel Xr -) 200 mg PO HS [facility] Last Admin: 05/04/18 21:27 Dose: 200 mg Tiotropium [place] (Spiriva Respimat) 2 puff IH DAILY [facility] Last Admin: 05/04/18 12:13 Dose: 2 puff - Objective Vital Signs: Vital Signs Temperature 36.7 C 05/05/18 14:00 Pulse Rate 100 H 05/05/18 14:00 Respiratory Rate 20 05/05/18 14:00 Blood Pressure 130/80 05/05/18 14:00 O2 Sat by Pulse Oximetry (%) 97 05/05/18 09:40 Constitutional: Yes: Well Nourished, No Distress, Calm Cardiovascular: Yes: Regular Rate and Rhythm. No: Gallop, Murmur, Rub Respiratory: Yes: Regular, On Nasal O2, Rhonchi. No: CTA Bilaterally, Rales, Wheezes Gastrointestinal: Yes: Normal Bowel Sounds, Soft. No: Distention, Tenderness Extremities: Yes: WNL Edema: No Labs: CBC, BMP 05/05/18 06:15 05/05/18 06:15 Assessment/Plan (1) Sepsis Assessment/Plan: -with increased leukocytosis, but improved slightly today -continue vancomycin and zosyn -continue hydration -ID following Code(s): A41.9 - SEPSIS, UNSPECIFIED ORGANISM Qualifiers: Sepsis type: sepsis due to unspecified organism Qualified Code(s): A41.9 - Sepsis, unspecified organism (2) Pneumonia, concern for empyema Assessment/Plan: -case d/w pulmonary -concern for empyema -continue antibiotics -may need thoracentesis -tylenol for pain control -will avoid narcotic secondary to multiple sedating medications -consider low dose steroid for pain control Code(s): J18.9 - PNEUMONIA, UNSPECIFIED ORGANISM Qualifiers: Pneumonia type: due to unspecified organism Laterality: right Lung location: lower lobe of lung Qualified Code(s): J18.1 - Lobar pneumonia, unspecified organism (3) Metabolic encephalopathy Assessment/Plan: -much improved today -monitor Code(s): G93.41 - METABOLIC ENCEPHALOPATHY (4) Leukocytosis Assessment/Plan: -improved slightly today Code(s): D72.829 - ELEVATED WHITE BLOOD CELL COUNT, UNSPECIFIED (5) Hypokalemia Assessment/Plan: -replaced Code(s): E87.6 - HYPOKALEMIA (6) Hyponatremia Assessment/Plan: -resolved Code(s): E87.1 - HYPO-OSMOLALITY AND HYPONATREMIA (7) Anemia Assessment/Plan: -stable -serum B12 and folate normal -AOCD Code(s): D64.9 - ANEMIA, UNSPECIFIED Qualifiers: Anemia type: unspecified type Qualified Code(s): D64.9 - Anemia, unspecified (8) Anxiety Assessment/Plan: -continue home meds -decreased klonopin to avoid increased lethargy Code(s): F41.9 - ANXIETY DISORDER, UNSPECIFIED (9) COPD (chronic obstructive pulmonary disease) Assessment/Plan: -chronic, severe obstructive disease on PFTs 2016 -continue spiriva/symbicort Code(s): J44.9 - CHRONIC OBSTRUCTIVE PULMONARY DISEASE, UNSPECIFIED Qualifiers: COPD type: chronic bronchitis (10) Abnormal CT of the chest Assessment/Plan: -as above Code(s): R93.89 - ABNORMAL FINDINGS ON DX IMAGING OF OTH BODY STRUCTURES (11) Tobacco dependence Assessment/Plan: -nicotine patch -encourage cessation Code(s): F17.200 - NICOTINE DEPENDENCE, UNSPECIFIED, UNCOMPLICATED
[2018-05-05] MEDS: TIOTROPIUM BROMIDE 2.5 MCG (SPIRIVA) RESPIMAT INHALER IH SCH (17:06)
[2018-05-06] MEDS ORDERED: PIPERACILLIN/TAZOBACTAM 4.5 GM VIAL IVPB ONE ×2 (01:05→09:51)
[2018-05-06] MEDS ORDERED: DEXTROSE 5%-WATER 100 ML IVPB ONE ×2 (01:05→09:51)
[2018-05-06] MEDS: PIPERACILLIN/TAZOB 4.5 GM 4.5 GM in DEXTROSE 5%-WATER 100 ML IVPB SCH ×3 (01:21→17:34)
[2018-05-06] MEDS: clonazePAM 0.5 MG TABLET PO PRN ×3 (04:53→15:25)
[2018-05-06 06:45] LABS: BASO % 0.9 % (0-2.0); EOS % 0.5 % (0-4.5); HEMATOCRIT 28.8 % (35.4-49); HEMOGLOBIN 9.3 GM/dL (11.7-16.9); LYMPH % 3.3 % (8-40); MCH 28.1 pg (25.7-33.7); MCHC 32.3 g/dl (32.0-35.9); MONO % 4.8 % (3.8-10.2); NEUT % 90.5 % (42.8-82.8); PLATELET COUNT 344 K/MM3 (134-434); RDW 15.9 % (11.9-15.9); WHITE BLOOD COUNT 17.6 K/mm3 (4.0-10.0)
[2018-05-06 07:17] LABS: ANION GAP 8 MMOL/L (8-16); BLOOD UREA NITROGEN 5 mg/dL (7-18); CALCIUM 7.6 mg/dL (8.5-10.1); CHLORIDE 101 mmol/L (98-107); CO2 27 mmol/L (21-32); CREATININE 0.4 mg/dL (0.55-1.3); GLUCOSE,RANDOM 114 mg/dL (74-106); MAGNESIUM 2.3 mg/dL (1.8-2.4); PHOSPHOROUS 3.5 mg/dL (2.5-4.9); POTASSIUM 3.8 mmol/L (3.5-5.1); SODIUM 136 mmol/L (136-145)
[2018-05-06] MEDS ORDERED: PT OWN MED DRAWER 7, Y5N ONE ×4 (09:08→22:41)
--- NOTE | 2018-05-06 09:32 | PN ---
Progress Note, Physician Chief Complaint: sob History of Present Illness: breathing only slightly improved. sporadic coughing. no legs swelling, cp, palpit - Current Medication List Current Medications: Active Medications Acetaminophen (Tylenol -) 650 mg PO Q4H PRN PRN Reason: PAIN Last Admin: 05/05/18 17:06 Dose: 650 mg Budesonide/Formoterol Fumarate (Symbicort 160/4.5mcg -) 2 puff IH BID [facility] Last Admin: 05/05/18 21:21 Dose: 2 puff Clonazepam (Klonopin -) 1 mg PO DAILY PRN PRN Reason: ANXIETY Last Admin: 05/06/18 04:53 Dose: 1 mg Enoxaparin Sodium (Lovenox -) 40 mg SQ DAILY [facility] Last Admin: 05/05/18 09:40 Dose: 40 mg Escitalopram Oxalate (Lexapro -) 10 mg PO DAILY [facility] Last Admin: 05/05/18 09:40 Dose: 10 mg Vancomycin HCl (Vancomycin (Pre-Docked)) 1,000 mg in 250 mls @ 166.667 mls/hr IVPB Q24H [facility]; Protocol Last Admin: 05/05/18 13:50 Dose: 166.667 mls/hr Piperacillin Sod/Tazobactam (Sod 4.5 gm/ Dextrose) 100 mls @ 200 mls/hr IVPB Q8H-IV [facility]; Protocol Last Admin: 05/06/18 01:21 Dose: 200 mls/hr Sodium Chloride (Normal Saline -) 1,000 mls @ 100 mls/hr IV ASDIR [facility] Last Admin: 05/05/18 21:25 Dose: 100 mls/hr Lactobacillus Acidophilus (Bacid -) 1 tab PO DAILY [facility] Last Admin: 05/05/18 09:40 Dose: 1 tab Nicotine (Nicoderm Patch -) 7 mg TD DAILY [facility] Last Admin: 05/05/18 09:40 Dose: 7 mg Potassium Chloride (K-Dur -) 40 meq PO DAILY [facility] Quetiapine Fumarate (Seroquel Xr -) 200 mg PO HS [facility] Last Admin: 05/05/18 21:22 Dose: 200 mg Tiotropium [place] (Spiriva Respimat) 2 puff IH DAILY [facility] Last Admin: 05/05/18 17:06 Dose: 2 puff - Objective Vital Signs: Vital Signs Temperature 98 F 05/06/18 05:01 Pulse Rate 108 H 05/06/18 05:01 Respiratory Rate 21 H 05/06/18 05:01 Blood Pressure 118/72 05/06/18 05:01 O2 Sat by Pulse Oximetry (%) 96 05/05/18 21:00 Constitutional: Yes: Well Nourished, No Distress, Calm Cardiovascular: Yes: Regular Rate and Rhythm, S1, S2. No: JVD, Gallop, Murmur Respiratory: Yes: Regular. No: Accessory Muscle Use, Wheezes Extremities: No: Cold Edema: No Neurological: Yes: Alert, Oriented Psychiatric: No: Agitated Labs: CBC, BMP 05/06/18 05:30 05/06/18 05:30 Assessment/Plan ct chest: bl pna, very small peric eff ecg: sr, nl intervals, irbbb echo 04/2018: tds, nl lv/rv, small peric eff, valves not mentioned a/p: 67 m hx anxiety, copd, smoking, here with malaise, uri sxs. pna: -abx per ID copd: -seems stable, inhalers per pulm tob use: -smoking cessation counselled here pericardial effusion: -small peric eff, no signs of tamponade including clinically. Repeat echo after acute issues resolved as outpt. off tele, awaiting med/surg bed
[2018-05-06] MEDS: LACTOBACILLUS ACIDOPHILUS 1 TABLET PO SCH (09:45)
[2018-05-06] MEDS: POTASSIUM CHLORIDE TABS 20 MEQ TABLET.ER (FP) PO SCH (09:45)
[2018-05-06] MEDS: NICOTINE 7 MG/24 HOURS TOPICAL PATCH TD SCH (09:45)
[2018-05-06] MEDS: ESCITALOPRAM OXALATE 10 MG TABLET (FP) PO SCH (09:46)
[2018-05-06] MEDS: ENOXAPARIN NA (PORCINE) 40 MG/0.4 ML DISP.SYRIN SQ SCH (09:46)
[2018-05-06] MEDS: TIOTROPIUM BROMIDE 2.5 MCG (SPIRIVA) RESPIMAT INHALER IH SCH (09:47)
[2018-05-06] MEDS: BUDESONIDE/FORMETEROL FUMARATE 160/4.5 mcg INHALER IH SCH ×2 (09:47→22:42)
--- NOTE | 2018-05-06 10:06 | PN ---
Progress Note, Physician Chief Complaint: Pt lying in bed in no acute distress. reports breathing is improving slowly. Still w/ congested cough, not able to bring up sputum. Denies any chest pain, sob, n/v/d - Current Medication List Current Medications: Active Medications Acetaminophen (Tylenol -) 650 mg PO Q4H PRN PRN Reason: PAIN Last Admin: 05/05/18 17:06 Dose: 650 mg Budesonide/Formoterol Fumarate (Symbicort 160/4.5mcg -) 2 puff IH BID [facility] Last Admin: 05/06/18 09:47 Dose: 2 puff Clonazepam (Klonopin -) 1 mg PO DAILY PRN PRN Reason: ANXIETY Last Admin: 05/06/18 09:51 Dose: 1 mg Enoxaparin Sodium (Lovenox -) 40 mg SQ DAILY [facility] Last Admin: 05/06/18 09:46 Dose: 40 mg Escitalopram Oxalate (Lexapro -) 10 mg PO DAILY [facility] Last Admin: 05/06/18 09:46 Dose: 10 mg Vancomycin HCl (Vancomycin (Pre-Docked)) 1,000 mg in 250 mls @ 166.667 mls/hr IVPB Q24H [facility]; Protocol Last Admin: 05/05/18 13:50 Dose: 166.667 mls/hr Piperacillin Sod/Tazobactam (Sod 4.5 gm/ Dextrose) 100 mls @ 200 mls/hr IVPB Q8H-IV [facility]; Protocol Last Admin: 05/06/18 09:51 Dose: 200 mls/hr Sodium Chloride (Normal Saline -) 1,000 mls @ 100 mls/hr IV ASDIR [facility] Last Admin: 05/05/18 21:25 Dose: 100 mls/hr Lactobacillus Acidophilus (Bacid -) 1 tab PO DAILY [facility] Last Admin: 05/06/18 09:45 Dose: 1 tab Nicotine (Nicoderm Patch -) 7 mg TD DAILY [facility] Last Admin: 05/06/18 09:45 Dose: 7 mg Potassium Chloride (K-Dur -) 40 meq PO DAILY [facility] Last Admin: 05/06/18 09:45 Dose: 40 meq Quetiapine Fumarate (Seroquel Xr -) 200 mg PO HS [facility] Last Admin: 05/05/18 21:22 Dose: 200 mg Tiotropium [place] (Spiriva Respimat) 2 puff IH DAILY [facility] Last Admin: 05/06/18 09:47 Dose: 2 puff - Objective Vital Signs: Vital Signs Temperature 98 F 05/06/18 05:01 Pulse Rate 108 H 05/06/18 05:01 Respiratory Rate 21 H 05/06/18 05:01 Blood Pressure 118/72 05/06/18 05:01 O2 Sat by Pulse Oximetry (%) 96 05/05/18 21:00 Constitutional: Yes: No Distress, Thin Respiratory: Yes: Regular, Cough, Diminished, On Nasal O2, Rales (bibasilar), SOB, SOB on Exertion. No: Accessory Muscle Use, Tachypnea, Wheezes Gastrointestinal: Yes: WNL, Normal Bowel Sounds, Soft. No: Distention, Vomiting Genitourinary: Yes: WNL Extremities: Yes: WNL Edema: No Neurological: Yes: WNL, Alert, Oriented Psychiatric: Yes: WNL, Alert, Oriented Labs: CBC, BMP 05/06/18 05:30 05/06/18 05:30 Assessment/Plan (1) Sepsis Assessment/Plan: 2/2 CAP, improving slowly wbc count trending down Zosyn/Vanco blood cultures neg urine legionella pending ID following Code(s): A41.9 - SEPSIS, UNSPECIFIED ORGANISM Qualifiers: Sepsis type: sepsis due to unspecified organism Qualified Code(s): A41.9 - Sepsis, unspecified organism (2) Pneumonia Assessment/Plan: as above Code(s): J18.9 - PNEUMONIA, UNSPECIFIED ORGANISM Qualifiers: Pneumonia type: due to unspecified organism Laterality: right Lung location: lower lobe of lung Qualified Code(s): J18.1 - Lobar pneumonia, unspecified organism (3) Pleural effusion Assessment/Plan: chest CT- extensive rll infiltrate, multiple abscess/effusion, atelectasis, nodule case discussed w/ pulm r/o parapneumonic lovenox on hold thoracentesis on sun Code(s): J90 - PLEURAL EFFUSION, NOT ELSEWHERE CLASSIFIED (4) Metabolic encephalopathy Assessment/Plan: resolved suspect 2/[address] pending aspiration precautions speech eval- r/o aspiration Code(s): G93.41 - METABOLIC ENCEPHALOPATHY (5) Leukocytosis Assessment/Plan: as above Code(s): D72.829 - ELEVATED WHITE BLOOD CELL COUNT, UNSPECIFIED (6) Hypokalemia Assessment/Plan: improved kcl 40meq monitor bmp Code(s): E87.6 - HYPOKALEMIA (7) Anemia Assessment/Plan: normocytic, normochromic no obvious signs of bleeding heme occult neg iron panel w/ low iron/low tibc- hematology consult appreciated outpt follow up after acute phase Code(s): D64.9 - ANEMIA, UNSPECIFIED Qualifiers: Anemia type: unspecified type Qualified Code(s): D64.9 - Anemia, unspecified (8) Anxiety Assessment/Plan: continue home meds decreased klonopin and lexapro to avoid lethargy Code(s): F41.9 - ANXIETY DISORDER, UNSPECIFIED (9) COPD (chronic obstructive pulmonary disease) Assessment/Plan: chronic, severe obstructive disease on PFTs 2016 spiriva/symbicort pulm following Code(s): J44.9 - CHRONIC OBSTRUCTIVE PULMONARY DISEASE, UNSPECIFIED Qualifiers: COPD type: chronic bronchitis (10) Abnormal CT of the chest Assessment/Plan: worsened CT findings since 04/22 fam hx of lung ca as above Code(s): R93.89 - ABNORMAL FINDINGS ON DX IMAGING OF OTH BODY STRUCTURES (11) Tobacco dependence Assessment/Plan: nicotine patch encourage cessation Code(s): F17.200 - NICOTINE DEPENDENCE, UNSPECIFIED, UNCOMPLICATED
--- NOTE | 2018-05-06 10:54 | PN ---
Progress Note, Physician History of Present Illness: PULMONARY ALERT,FEELS WEAK,C/O SOB - Current Medication List Current Medications: Active Medications Acetaminophen (Tylenol -) 650 mg PO Q4H PRN PRN Reason: PAIN Last Admin: 05/05/18 17:06 Dose: 650 mg Budesonide/Formoterol Fumarate (Symbicort 160/4.5mcg -) 2 puff IH BID [facility] Last Admin: 05/06/18 09:47 Dose: 2 puff Clonazepam (Klonopin -) 1 mg PO DAILY PRN PRN Reason: ANXIETY Last Admin: 05/06/18 09:51 Dose: 1 mg Enoxaparin Sodium (Lovenox -) 40 mg SQ DAILY [facility] Last Admin: 05/06/18 09:46 Dose: 40 mg Escitalopram Oxalate (Lexapro -) 10 mg PO DAILY [facility] Last Admin: 05/06/18 09:46 Dose: 10 mg Guaifenesin (Mucinex -) 600 mg PO BID [facility] Vancomycin HCl (Vancomycin (Pre-Docked)) 1,000 mg in 250 mls @ 166.667 mls/hr IVPB Q24H [facility]; Protocol Last Admin: 05/05/18 13:50 Dose: 166.667 mls/hr Piperacillin Sod/Tazobactam (Sod 4.5 gm/ Dextrose) 100 mls @ 200 mls/hr IVPB Q8H-IV [facility]; Protocol Last Admin: 05/06/18 09:51 Dose: 200 mls/hr Sodium Chloride (Normal Saline -) 1,000 mls @ 100 mls/hr IV ASDIR [facility] Last Admin: 05/05/18 21:25 Dose: 100 mls/hr Lactobacillus Acidophilus (Bacid -) 1 tab PO DAILY [facility] Last Admin: 05/06/18 09:45 Dose: 1 tab Nicotine (Nicoderm Patch -) 7 mg TD DAILY [facility] Last Admin: 05/06/18 09:45 Dose: 7 mg Potassium Chloride (K-Dur -) 40 meq PO DAILY [facility] Last Admin: 05/06/18 09:45 Dose: 40 meq Quetiapine Fumarate (Seroquel Xr -) 200 mg PO HS [facility] Last Admin: 05/05/18 21:22 Dose: 200 mg Tiotropium [place] (Spiriva Respimat) 2 puff IH DAILY [facility] Last Admin: 05/06/18 09:47 Dose: 2 puff - Objective Vital Signs: Vital Signs Temperature 98 F 05/06/18 05:01 Pulse Rate 108 H 05/06/18 05:01 Respiratory Rate 21 H 05/06/18 05:01 Blood Pressure 118/72 05/06/18 05:01 O2 Sat by Pulse Oximetry (%) 96 05/05/18 21:00 Constitutional: Yes: Well Nourished, Calm Eyes: Yes: WNL HENT: Yes: WNL Neck: Yes: WNL Cardiovascular: Yes: Regular Rate and Rhythm, S1, S2 Respiratory: Yes: Diminished Gastrointestinal: Yes: Normal Bowel Sounds, Soft Extremities: Yes: WNL Edema: No Labs: CBC, BMP 05/06/18 05:30 05/06/18 05:30 Laboratory Tests 05/04/18 06:50 ABG pH 7.44 ABG pCO2 at Pt Temp 38.3 D ABG pO2 at Pt Temp 70.9 L ABG HCO3 25.6 ABG O2 Sat (Measured) 94.2 O2 Delivery Device N/c Oxygen Flow Rate 4lpm Assessment/Plan RLL INFILTRATE WITH ASSOCIATED PLEURAL EFFUSION NEED TO R/O COMPLICATED PARA- PNEUMONIC EFFUSION/MAY REQUIRE DRAINAGE CONTINUE ANTIBIOTICS THORACENTESIS WOULD AVOID OVER SEDATION GIVEN UNDERLYING PSYCH HISTORY TITRATE O2 TO KEEP SAT >90% DR MUNSON Problem List - Problems (1) Pleural effusion associated with pulmonary infection Code(s): J18.9 - PNEUMONIA, UNSPECIFIED ORGANISM; J91.8 - PLEURAL EFFUSION IN OTHER CONDITIONS CLASSIFIED ELSEWHERE (2) Abnormal CT of the chest Code(s): R93.89 - ABNORMAL FINDINGS ON DX IMAGING OF OTH BODY STRUCTURES (3) Anemia Code(s): D64.9 - ANEMIA, UNSPECIFIED Qualifiers: Anemia type: unspecified type Qualified Code(s): D64.9 - Anemia, unspecified (4) Anxiety Code(s): F41.9 - ANXIETY DISORDER, UNSPECIFIED (5) COPD (chronic obstructive pulmonary disease) Code(s): J44.9 - CHRONIC OBSTRUCTIVE PULMONARY DISEASE, UNSPECIFIED Qualifiers: COPD type: chronic bronchitis (6) Pneumonia Code(s): J18.9 - PNEUMONIA, UNSPECIFIED ORGANISM Qualifiers: Pneumonia type: due to unspecified organism Laterality: right Lung location: lower lobe of lung Qualified Code(s): J18.1 - Lobar pneumonia, unspecified organism (7) Tobacco dependence Code(s): F17.200 - NICOTINE DEPENDENCE, UNSPECIFIED, UNCOMPLICATED (8) Vertigo Code(s): R42 - DIZZINESS AND GIDDINESS
[2018-05-06] MEDS: guaiFENesin 600 MG TABLET.ER (FP) PO SCH ×2 (12:07→22:41)
[2018-05-06] MEDS: VANCOMYCIN 1 GRAM (PRE-DOCKED) 1,000 MG/250 ML BAG IVPB SCH (13:43)
[2018-05-06] MEDS: SODIUM CHLORIDE 1,000 ML IV SCH (16:25)
--- NOTE | 2018-05-06 18:32 | PN ---
Progress Note, Physician History of Present Illness: patient looking a little better still wiht cough and weakness plan for thoracocentesis on sun - Current Medication List Current Medications: Active Medications Acetaminophen (Tylenol -) 650 mg PO Q4H PRN PRN Reason: PAIN Last Admin: 05/05/18 17:06 Dose: 650 mg Budesonide/Formoterol Fumarate (Symbicort 160/4.5mcg -) 2 puff IH BID [facility] Last Admin: 05/06/18 09:47 Dose: 2 puff Clonazepam (Klonopin -) 1 mg PO DAILY PRN PRN Reason: ANXIETY Last Admin: 05/06/18 15:25 Dose: 1 mg Escitalopram Oxalate (Lexapro -) 10 mg PO DAILY [facility] Last Admin: 05/06/18 09:46 Dose: 10 mg Guaifenesin (Mucinex -) 600 mg PO BID [facility] Last Admin: 05/06/18 12:07 Dose: 600 mg Vancomycin HCl (Vancomycin (Pre-Docked)) 1,000 mg in 250 mls @ 166.667 mls/hr IVPB Q24H [facility]; Protocol Last Admin: 05/06/18 13:43 Dose: 166.667 mls/hr Piperacillin Sod/Tazobactam (Sod 4.5 gm/ Dextrose) 100 mls @ 200 mls/hr IVPB Q8H-IV [facility]; Protocol Last Admin: 05/06/18 17:34 Dose: 200 mls/hr Sodium Chloride (Normal Saline -) 1,000 mls @ 100 mls/hr IV ASDIR [facility] Last Admin: 05/06/18 16:25 Dose: 100 mls/hr Lactobacillus Acidophilus (Bacid -) 1 tab PO DAILY [facility] Last Admin: 05/06/18 09:45 Dose: 1 tab Nicotine (Nicoderm Patch -) 7 mg TD DAILY [facility] Last Admin: 05/06/18 09:45 Dose: 7 mg Potassium Chloride (K-Dur -) 40 meq PO DAILY [facility] Last Admin: 05/06/18 09:45 Dose: 40 meq Quetiapine Fumarate (Seroquel Xr -) 200 mg PO HS [facility] Last Admin: 05/05/18 21:22 Dose: 200 mg Tiotropium [place] (Spiriva Respimat) 2 puff IH DAILY [facility] Last Admin: 05/06/18 09:47 Dose: 2 puff - Objective Vital Signs: Vital Signs Temperature 98 F 05/06/18 14:21 Pulse Rate 90 05/06/18 14:21 Respiratory Rate 22 H 05/06/18 14:21 Blood Pressure 131/85 05/06/18 14:21 O2 Sat by Pulse Oximetry (%) 93 L 05/06/18 17:18 Constitutional: Yes: No Distress, Calm Cardiovascular: Yes: S1, S2 Respiratory: Yes: On Nasal O2, Poor Air Entry, Other Gastrointestinal: Yes: Normal Bowel Sounds, Soft Musculoskeletal: Yes: WNL Extremities: Yes: WNL Neurological: Yes: Alert, Oriented Psychiatric: Yes: Alert, Oriented Labs: CBC, BMP 05/06/18 05:30 05/06/18 05:30 Assessment/Plan Assessment/Plan (1) Sepsis Code(s): A41.9 - SEPSIS, UNSPECIFIED ORGANISM Qualifiers: Sepsis type: sepsis due to unspecified organism Qualified Code(s): A41.9 - Sepsis, unspecified organism (2) Pneumonia Code(s): J18.9 - PNEUMONIA, UNSPECIFIED ORGANISM Qualifiers: Pneumonia type: due to unspecified organism Laterality: right Lung location: lower lobe of lung Qualified Code(s): J18.1 - Lobar pneumonia, unspecified organism (3) Pleural effusion Code(s): J90 - PLEURAL EFFUSION, NOT ELSEWHERE CLASSIFIED (4) Metabolic encephalopathy Code(s): G93.41 - METABOLIC ENCEPHALOPATHY (5) Leukocytosis Code(s): D72.829 - ELEVATED WHITE BLOOD CELL COUNT, UNSPECIFIED (6) Hypokalemia Code(s): E87.6 - HYPOKALEMIA (7) Anemia Code(s): D64.9 - ANEMIA, UNSPECIFIED Qualifiers: Anemia type: unspecified type Qualified Code(s): D64.9 - Anemia, unspecified (8) Anxiety Code(s): F41.9 - ANXIETY DISORDER, UNSPECIFIED (9) COPD (chronic obstructive pulmonary disease) Code(s): J44.9 - CHRONIC OBSTRUCTIVE PULMONARY DISEASE, UNSPECIFIED Qualifiers: COPD type: chronic bronchitis (10) Abnormal CT of the chest Code(s): R93.89 - ABNORMAL FINDINGS ON DX IMAGING OF OTH BODY STRUCTURES (11) Tobacco dependence Code(s): F17.200 - NICOTINE DEPENDENCE, UNSPECIFIED, UNCOMPLICATED plan continue current abx will check vanco trough thoracocentesis on wed rest as per the team
[2018-05-07] MEDS: PIPERACILLIN/TAZOB 4.5 GM 4.5 GM in DEXTROSE 5%-WATER 100 ML IVPB SCH ×3 (03:00→17:47)
[2018-05-07] MEDS ORDERED: PIPERACILLIN/TAZOBACTAM 4.5 GM VIAL IVPB ONE ×3 (04:46→17:27)
[2018-05-07] MEDS ORDERED: DEXTROSE 5%-WATER 100 ML IVPB ONE ×3 (04:46→17:27)
[2018-05-07] MEDS: clonazePAM 0.5 MG TABLET PO PRN ×2 (05:21→14:37)
[2018-05-07 07:41] LABS: BASO % 1.1 % (0-2.0); EOS % 0.9 % (0-4.5); HEMATOCRIT 28.2 % (35.4-49); LYMPH % 3.4 % (8-40); MCH 27.9 pg (25.7-33.7); MCHC 32.1 g/dl (32.0-35.9); MEAN PLT VOLUME 7.4 fl (7.5-11.1); MONO % 6.3 % (3.8-10.2); NEUT % 88.3 % (42.8-82.8); PLATELET COUNT 342 K/MM3 (134-434); RBC 3.24 M/mm3 (4.00-5.60); RDW 16.3 % (11.9-15.9); WHITE BLOOD COUNT 17.2 K/mm3 (4.0-10.0)
[2018-05-07 07:54] LABS: INR 1.28 (0.83-1.09); PROTHROMBIN TIME (PATIENT) 15.2 SEC (9.7-13.0)
[2018-05-07] MEDS ORDERED: PT OWN MED DRAWER 7, Y5N ONE ×2 (07:58→10:45)
[2018-05-07 08:18] LABS: ANION GAP 7 MMOL/L (8-16); BLOOD UREA NITROGEN 4 mg/dL (7-18); CALCIUM 7.5 mg/dL (8.5-10.1); CHLORIDE 104 mmol/L (98-107); CO2 29 mmol/L (21-32); CREATININE 0.5 mg/dL (0.55-1.3); GLUCOSE,RANDOM 134 mg/dL (74-106); POTASSIUM 3.8 mmol/L (3.5-5.1); SODIUM 141 mmol/L (136-145)
--- NOTE | 2018-05-07 09:06 | PN ---
Progress Note, Physician Chief Complaint: sob History of Present Illness: still sob. not much cough. no cp (L abd pain yest--now resolved) no leg swelling - Current Medication List Current Medications: Active Medications Acetaminophen (Tylenol -) 650 mg PO Q4H PRN PRN Reason: PAIN Last Admin: 05/05/18 17:06 Dose: 650 mg Budesonide/Formoterol Fumarate (Symbicort 160/4.5mcg -) 2 puff IH BID [facility] Last Admin: 05/06/18 22:42 Dose: 2 puff Clonazepam (Klonopin -) 1 mg PO DAILY PRN PRN Reason: ANXIETY Last Admin: 05/07/18 05:21 Dose: 1 mg Escitalopram Oxalate (Lexapro -) 10 mg PO DAILY [facility] Last Admin: 05/06/18 09:46 Dose: 10 mg Guaifenesin (Mucinex -) 600 mg PO BID [facility] Last Admin: 05/06/18 22:41 Dose: 600 mg Vancomycin HCl (Vancomycin (Pre-Docked)) 1,000 mg in 250 mls @ 166.667 mls/hr IVPB Q24H [facility]; Protocol Last Admin: 05/06/18 13:43 Dose: 166.667 mls/hr Piperacillin Sod/Tazobactam (Sod 4.5 gm/ Dextrose) 100 mls @ 200 mls/hr IVPB Q8H-IV [facility]; Protocol Last Admin: 05/07/18 03:00 Dose: 200 mls/hr Sodium Chloride (Normal Saline -) 1,000 mls @ 100 mls/hr IV ASDIR [facility] Last Admin: 05/06/18 16:25 Dose: 100 mls/hr Lactobacillus Acidophilus (Bacid -) 1 tab PO DAILY [facility] Last Admin: 05/06/18 09:45 Dose: 1 tab Nicotine (Nicoderm Patch -) 7 mg TD DAILY [facility] Last Admin: 05/06/18 09:45 Dose: 7 mg Potassium Chloride (K-Dur -) 40 meq PO DAILY [facility] Last Admin: 05/06/18 09:45 Dose: 40 meq Quetiapine Fumarate (Seroquel Xr -) 200 mg PO HS [facility] Last Admin: 05/06/18 22:41 Dose: 200 mg Tiotropium [place] (Spiriva Respimat) 2 puff IH DAILY [facility] Last Admin: 05/06/18 09:47 Dose: 2 puff - Objective Vital Signs: Vital Signs Temperature 98.1 F 05/07/18 05:28 Pulse Rate 92 H 05/07/18 05:28 Respiratory Rate 20 05/07/18 05:28 Blood Pressure 134/70 05/07/18 05:28 O2 Sat by Pulse Oximetry (%) 92 L 05/06/18 21:00 Constitutional: Yes: Well Nourished, No Distress, Calm Cardiovascular: Yes: Regular Rate and Rhythm (decr intensity (c/w copd)), S1, S2. No: Gallop, Murmur Respiratory: Yes: Regular, CTA Bilaterally. No: Accessory Muscle Use, Wheezes Extremities: No: Cold Edema: No Neurological: Yes: Alert, Oriented Psychiatric: No: Agitated Labs: CBC, BMP 05/07/18 06:25 05/07/18 06:25 INR, PTT INR 1.28 (0.83-1.09) H 05/07/18 06:25 Assessment/Plan ct chest: bl pna, very small peric eff ecg: sr, nl intervals, irbbb echo 04/2018: tds, nl lv/rv, small peric eff, valves not mentioned a/p: 67 m hx anxiety, copd, smoking, here with malaise, uri sxs. pna, parapneumonic -plan per ID, pulm copd: -seems stable, inhalers per pulm tob use: -smoking cessation counselled here pericardial effusion: -small peric eff, no signs of tamponade including clinically. Repeat echo after acute issues resolved as outpt. off tele, awaiting med/surg bed
[2018-05-07] MEDS: NICOTINE 7 MG/24 HOURS TOPICAL PATCH TD SCH (10:52)
[2018-05-07] MEDS: guaiFENesin 600 MG TABLET.ER (FP) PO SCH ×2 (10:52→21:21)
[2018-05-07] MEDS: POTASSIUM CHLORIDE TABS 20 MEQ TABLET.ER (FP) PO SCH (10:52)
[2018-05-07] MEDS: LACTOBACILLUS ACIDOPHILUS 1 TABLET PO SCH (10:52)
[2018-05-07] MEDS: ESCITALOPRAM OXALATE 10 MG TABLET (FP) PO SCH (10:52)
[2018-05-07] MEDS: BUDESONIDE/FORMETEROL FUMARATE 160/4.5 mcg INHALER IH SCH ×2 (10:56→21:22)
[2018-05-07] MEDS: TIOTROPIUM BROMIDE 2.5 MCG (SPIRIVA) RESPIMAT INHALER IH SCH (10:56)
--- NOTE | 2018-05-07 11:13 | PN ---
Progress Note, Physician Chief Complaint: Mr Carter is very lethargic today. - Current Medication List Current Medications: Active Medications Acetaminophen (Tylenol -) 650 mg PO Q4H PRN PRN Reason: PAIN Last Admin: 05/05/18 17:06 Dose: 650 mg Budesonide/Formoterol Fumarate (Symbicort 160/4.5mcg -) 2 puff IH BID [facility] [place] Last Admin: 05/07/18 10:56 Dose: 2 puff Clonazepam (Klonopin -) 0.5 mg PO DAILY PRN PRN Reason: ANXIETY Escitalopram Oxalate (Lexapro -) 10 mg PO DAILY [facility] Last Admin: 05/07/18 10:52 Dose: 10 mg Guaifenesin (Mucinex -) 600 mg PO BID [facility] Last Admin: 05/07/18 10:52 Dose: 600 mg Vancomycin HCl (Vancomycin (Pre-Docked)) 1,000 mg in 250 mls @ 166.667 mls/hr IVPB Q24H [facility]; Protocol Last Admin: 05/06/18 13:43 Dose: 166.667 mls/hr Piperacillin Sod/Tazobactam (Sod 4.5 gm/ Dextrose) 100 mls @ 200 mls/hr IVPB Q8H-IV [facility]; Protocol Last Admin: 05/07/18 10:52 Dose: 200 mls/hr Sodium Chloride (Normal Saline -) 1,000 mls @ 100 mls/hr IV ASDIR [facility] Last Admin: 05/06/18 16:25 Dose: 100 mls/hr Lactobacillus Acidophilus (Bacid -) 1 tab PO DAILY [facility] Last Admin: 05/07/18 10:52 Dose: 1 tab Nicotine (Nicoderm Patch -) 7 mg TD DAILY [facility] Last Admin: 05/07/18 10:52 Dose: 7 mg Potassium Chloride (K-Dur -) 40 meq PO DAILY [facility] Last Admin: 05/07/18 10:52 Dose: 40 meq Quetiapine Fumarate (Seroquel Xr -) 200 mg PO HS [facility] [place] Last Admin: 05/06/18 22:41 Dose: 200 mg Tiotropium [place] (Spiriva Respimat) 2 puff IH DAILY [facility] [place] Last Admin: 05/07/18 10:56 Dose: 2 puff - Objective Vital Signs: Vital Signs Temperature 36.7 C 05/07/18 05:28 Pulse Rate 92 H 05/07/18 05:28 Respiratory Rate 20 05/07/18 05:28 Blood Pressure 134/70 05/07/18 05:28 O2 Sat by Pulse Oximetry (%) 92 L 05/06/18 21:00 Constitutional: Yes: Other (lethargic) Cardiovascular: Yes: Regular Rate and Rhythm. No: Gallop, Murmur, Rub Respiratory: Yes: Regular, Cough, On Nasal O2, Rhonchi. No: CTA Bilaterally, Rales, Wheezes Gastrointestinal: Yes: Normal Bowel Sounds, Soft. No: Distention, Tenderness Extremities: Yes: WNL Edema: No Labs: CBC, BMP 05/07/18 06:25 05/07/18 06:25 INR, PTT INR 1.28 (0.83-1.09) H 05/07/18 06:25 Assessment/Plan (1) Sepsis Assessment/Plan: -leukocytosis stable -continue vancomycin and zosyn -continue hydration -ID following Code(s): A41.9 - SEPSIS, UNSPECIFIED ORGANISM Qualifiers: Sepsis type: sepsis due to unspecified organism Qualified Code(s): A41.9 - Sepsis, unspecified organism (2) Pneumonia, concern for empyema Assessment/Plan: -concern for empyema -continue antibiotics -suspect will need thoracentesis Code(s): J18.9 - PNEUMONIA, UNSPECIFIED ORGANISM Qualifiers: Pneumonia type: due to unspecified organism Laterality: right Lung location: lower lobe of lung Qualified Code(s): J18.1 - Lobar pneumonia, unspecified organism (3) Metabolic encephalopathy Assessment/Plan: -lethargic today -will decrease klonipin -check abg as well to make sure not hypercarbic Code(s): G93.41 - METABOLIC ENCEPHALOPATHY (4) Leukocytosis Assessment/Plan: -stable Code(s): D72.829 - ELEVATED WHITE BLOOD CELL COUNT, UNSPECIFIED (5) Hypokalemia Assessment/Plan: -replaced Code(s): E87.6 - HYPOKALEMIA (6) Hyponatremia Assessment/Plan: -resolved Code(s): E87.1 - HYPO-OSMOLALITY AND HYPONATREMIA (7) Anemia Assessment/Plan: -stable -serum B12 and folate normal -AOCD Code(s): D64.9 - ANEMIA, UNSPECIFIED Qualifiers: Anemia type: unspecified type Qualified Code(s): D64.9 - Anemia, unspecified (8) Anxiety Assessment/Plan: -continue home meds -decreased klonopin to avoid increased lethargy Code(s): F41.9 - ANXIETY DISORDER, UNSPECIFIED (9) COPD (chronic obstructive pulmonary disease) Assessment/Plan: -chronic, severe obstructive disease on PFTs 2016 -continue spiriva/symbicort Code(s): J44.9 - CHRONIC OBSTRUCTIVE PULMONARY DISEASE, UNSPECIFIED Qualifiers: COPD type: chronic bronchitis (10) Abnormal CT of the chest Assessment/Plan: -as above Code(s): R93.89 - ABNORMAL FINDINGS ON DX IMAGING OF OTH BODY STRUCTURES (11) Tobacco dependence Assessment/Plan: -nicotine patch -encourage cessation Code(s): F17.200 - NICOTINE DEPENDENCE, UNSPECIFIED, UNCOMPLICATED
[2018-05-07] MEDS ORDERED: ALBUTEROL SO4 0.083% IH SOL 2.5 MG/3 ML VIAL.NEB. NEB PRN (11:18)
--- NOTE | 2018-05-07 11:18 | PN ---
Progress Note (short form) - Note Progress Note: PULMONARY Feels weak, tired. +shortness of breath with cough and wheezing. Vital Signs Period Temp Pulse Resp BP Sys/Torres Pulse Ox Last 24 Hr 97.8 F-98.1 F 90-98 20-22 131-137/65-85 92-93 Gen: weak appearing Heart: RRR Lung: bilateral rhonchi, wheezing Abd: soft, nontender Ext: no edema CBC, BMP 05/07/18 06:25 05/07/18 06:25 Active Medications Acetaminophen (Tylenol -) 650 mg PO Q4H PRN PRN Reason: PAIN Last Admin: 05/05/18 17:06 Dose: 650 mg Budesonide/Formoterol Fumarate (Symbicort 160/4.5mcg -) 2 puff IH BID [facility] Last Admin: 05/07/18 10:56 Dose: 2 puff Clonazepam (Klonopin -) 0.5 mg PO DAILY PRN PRN Reason: ANXIETY Escitalopram Oxalate (Lexapro -) 10 mg PO DAILY [facility] Last Admin: 05/07/18 10:52 Dose: 10 mg Guaifenesin (Mucinex -) 600 mg PO BID [facility] Last Admin: 05/07/18 10:52 Dose: 600 mg Vancomycin HCl (Vancomycin (Pre-Docked)) 1,000 mg in 250 mls @ 166.667 mls/hr IVPB Q24H [facility]; Protocol Last Admin: 05/06/18 13:43 Dose: 166.667 mls/hr Piperacillin Sod/Tazobactam (Sod 4.5 gm/ Dextrose) 100 mls @ 200 mls/hr IVPB Q8H-IV [facility]; Protocol Last Admin: 05/07/18 10:52 Dose: 200 mls/hr Sodium Chloride (Normal Saline -) 1,000 mls @ 100 mls/hr IV ASDIR [facility] Last Admin: 05/06/18 16:25 Dose: 100 mls/hr Lactobacillus Acidophilus (Bacid -) 1 tab PO DAILY [facility] Last Admin: 05/07/18 10:52 Dose: 1 tab Nicotine (Nicoderm Patch -) 7 mg TD DAILY [facility] Last Admin: 05/07/18 10:52 Dose: 7 mg Potassium Chloride (K-Dur -) 40 meq PO DAILY [facility] Last Admin: 05/07/18 10:52 Dose: 40 meq Quetiapine Fumarate (Seroquel Xr -) 200 mg PO HS [facility] Last Admin: 05/06/18 22:41 Dose: 200 mg Tiotropium [place] (Spiriva Respimat) 2 puff IH DAILY [facility] Last Admin: 05/07/18 10:56 Dose: 2 puff A/P Pneumonia Parapneumonic Effusion Acute COPD Exacerbation Pericardial Effusion Smoker - continue antibiotics - will start short course of steroids - inhaled bronchodilators - O2 to keep SpO2 >90% - DVT prophylaxis
[2018-05-07] MEDS: ALBUTEROL SO4 2.5/IPRATROPIUM 0.5 INH SOL 3 ML VIAL.NEB. NEB SCH ×3 (12:30→21:00)
[2018-05-07] MEDS: VANCOMYCIN 1 GRAM (PRE-DOCKED) 1,000 MG/250 ML BAG IVPB SCH (13:40)
[2018-05-07] MEDS: methylPREDNISolone NA SUCC 40 MG/1 ML VIAL IVPUSH SCH ×2 (13:44→17:47)
--- NOTE | 2018-05-07 14:35 | PN ---
Progress Note, Physician History of Present Illness: continues to remain stable no issues awaiting for aspiration tomorrow - Current Medication List Current Medications: Active Medications Acetaminophen (Tylenol -) 650 mg PO Q4H PRN PRN Reason: PAIN Last Admin: 05/05/18 17:06 Dose: 650 mg Albuterol Sulfate (Ventolin 0.083% Nebulizer Soln -) 1 amp NEB Q4H PRN PRN Reason: SHORT OF BREATH/WHEEZING Albuterol/Ipratropium (Duoneb -) 1 amp NEB RQID [facility] Budesonide/Formoterol Fumarate (Symbicort 160/4.5mcg -) 2 puff IH BID [facility] Last Admin: 05/07/18 10:56 Dose: 2 puff Clonazepam (Klonopin -) 0.5 mg PO DAILY PRN PRN Reason: ANXIETY Escitalopram Oxalate (Lexapro -) 10 mg PO DAILY [facility] Last Admin: 05/07/18 10:52 Dose: 10 mg Guaifenesin (Mucinex -) 600 mg PO BID [facility] Last Admin: 05/07/18 10:52 Dose: 600 mg Vancomycin HCl (Vancomycin (Pre-Docked)) 1,000 mg in 250 mls @ 166.667 mls/hr IVPB Q24H [facility]; Protocol Last Admin: 05/07/18 13:40 Dose: 166.667 mls/hr Piperacillin Sod/Tazobactam (Sod 4.5 gm/ Dextrose) 100 mls @ 200 mls/hr IVPB Q8H-IV [facility]; Protocol Last Admin: 05/07/18 10:52 Dose: 200 mls/hr Sodium Chloride (Normal Saline -) 1,000 mls @ 100 mls/hr IV ASDIR [facility] Last Admin: 05/06/18 16:25 Dose: 100 mls/hr Lactobacillus Acidophilus (Bacid -) 1 tab PO DAILY [facility] Last Admin: 05/07/18 10:52 Dose: 1 tab Methylprednisolone Sodium Succinate (Solu-Medrol -) 40 mg IVPUSH Q8H-IV [facility] Last Admin: 05/07/18 13:44 Dose: 40 mg Nicotine (Nicoderm Patch -) 7 mg TD DAILY [facility] Last Admin: 05/07/18 10:52 Dose: 7 mg Potassium Chloride (K-Dur -) 40 meq PO DAILY [facility] Last Admin: 05/07/18 10:52 Dose: 40 meq Quetiapine Fumarate (Seroquel Xr -) 200 mg PO HS [facility] Last Admin: 05/06/18 22:41 Dose: 200 mg Tiotropium [place] (Spiriva Respimat) 2 puff IH DAILY [facility] Last Admin: 05/07/18 10:56 Dose: 2 puff - Objective Vital Signs: Vital Signs Temperature 98.8 F 05/07/18 10:00 Pulse Rate 84 05/07/18 10:00 Respiratory Rate 20 05/07/18 10:00 Blood Pressure 139/55 L 05/07/18 10:00 O2 Sat by Pulse Oximetry (%) 93 L 05/07/18 11:27 Constitutional: Yes: No Distress, Calm Cardiovascular: Yes: S1, S2 Respiratory: Yes: On Nasal O2, Poor Air Entry, Rhonchi, Other Gastrointestinal: Yes: Normal Bowel Sounds, Soft Musculoskeletal: Yes: WNL Extremities: Yes: WNL Neurological: Yes: Alert, Oriented Psychiatric: Yes: Alert, Oriented Labs: CBC, BMP 05/07/18 06:25 05/07/18 06:25 INR, PTT INR 1.28 (0.83-1.09) H 05/07/18 06:25 Assessment/Plan Assessment/Plan (1) Sepsis Code(s): A41.9 - SEPSIS, UNSPECIFIED ORGANISM Qualifiers: Sepsis type: sepsis due to unspecified organism Qualified Code(s): A41.9 - Sepsis, unspecified organism (2) Pneumonia Code(s): J18.9 - PNEUMONIA, UNSPECIFIED ORGANISM Qualifiers: Pneumonia type: due to unspecified organism Laterality: right Lung location: lower lobe of lung Qualified Code(s): J18.1 - Lobar pneumonia, unspecified organism (3) Pleural effusion Code(s): J90 - PLEURAL EFFUSION, NOT ELSEWHERE CLASSIFIED (4) Metabolic encephalopathy Code(s): G93.41 - METABOLIC ENCEPHALOPATHY (5) Leukocytosis Code(s): D72.829 - ELEVATED WHITE BLOOD CELL COUNT, UNSPECIFIED (6) Hypokalemia Code(s): E87.6 - HYPOKALEMIA (7) Anemia Code(s): D64.9 - ANEMIA, UNSPECIFIED Qualifiers: Anemia type: unspecified type Qualified Code(s): D64.9 - Anemia, unspecified (8) Anxiety Code(s): F41.9 - ANXIETY DISORDER, UNSPECIFIED (9) COPD (chronic obstructive pulmonary disease) Code(s): J44.9 - CHRONIC OBSTRUCTIVE PULMONARY DISEASE, UNSPECIFIED Qualifiers: COPD type: chronic bronchitis (10) Abnormal CT of the chest Code(s): R93.89 - ABNORMAL FINDINGS ON DX IMAGING OF OTH BODY STRUCTURES (11) Tobacco dependence Code(s): F17.200 - NICOTINE DEPENDENCE, UNSPECIFIED, UNCOMPLICATED plan continue current abx aspiration tomorrow rest as per the team pul on board
[2018-05-07] MEDS: SODIUM CHLORIDE 1,000 ML IV SCH (16:25)
[2018-05-07 16:32] LABS: ARTERIAL BLD GAS O2 SATURATION 95.6 % (90-98.9); ARTERIAL BLOOD GAS BASE EXCESS 4.3 meq/l (-2-2); ARTERIAL BLOOD GAS PCO2 40.7 mmHg (35-45); ARTERIAL BLOOD GAS PO2 76.2 mmHg (80-100); ARTERIAL BLOOD GAS pH 7.45 (7.35-7.45)
[2018-05-08] MEDS ORDERED: DEXTROSE 5%-WATER 100 ML IVPB ONE ×3 (01:41→17:38)
[2018-05-08] MEDS ORDERED: PIPERACILLIN/TAZOBACTAM 4.5 GM VIAL IVPB ONE ×3 (01:41→17:38)
[2018-05-08] MEDS: methylPREDNISolone NA SUCC 40 MG/1 ML VIAL IVPUSH SCH ×3 (01:48→17:53)
[2018-05-08] MEDS: PIPERACILLIN/TAZOB 4.5 GM 4.5 GM in DEXTROSE 5%-WATER 100 ML IVPB SCH ×3 (02:00→18:04)
[2018-05-08] MEDS: clonazePAM 0.5 MG TABLET PO PRN (04:08)
[2018-05-08 06:46] LABS: BASO % 0.4 % (0-2.0); HEMATOCRIT 27.9 % (35.4-49); HEMOGLOBIN 9.1 GM/dL (11.7-16.9); MCH 28.2 pg (25.7-33.7); MCHC 32.5 g/dl (32.0-35.9); MEAN CELL VOLUME 86.7 fl (80-96); MEAN PLT VOLUME 7.7 fl (7.5-11.1); MONO % 3.3 % (3.8-10.2); NEUT % 94.3 % (42.8-82.8); PLATELET COUNT 403 K/MM3 (134-434); RBC 3.22 M/mm3 (4.00-5.60); RDW 15.9 % (11.9-15.9); WHITE BLOOD COUNT 20.7 K/mm3 (4.0-10.0)
[2018-05-08 07:30] LABS: ANION GAP 6 MMOL/L (8-16); BLOOD UREA NITROGEN 6 mg/dL (7-18); CALCIUM 7.7 mg/dL (8.5-10.1); CHLORIDE 104 mmol/L (98-107); CO2 29 mmol/L (21-32); CREATININE 0.4 mg/dL (0.55-1.3); GLUCOSE,RANDOM 155 mg/dL (74-106); MAGNESIUM 2.5 mg/dL (1.8-2.4); PHOSPHOROUS 3.8 mg/dL (2.5-4.9); POTASSIUM 4.1 mmol/L (3.5-5.1); SODIUM 140 mmol/L (136-145)
[2018-05-08] MEDS: ALBUTEROL SO4 2.5/IPRATROPIUM 0.5 INH SOL 3 ML VIAL.NEB. NEB SCH ×4 (07:46→20:34)
--- NOTE | 2018-05-08 09:12 | PN ---
Progress Note, Physician Chief Complaint: Pt lying in bed in no acute distress. feels sob. Denies any chest pain, n/v/d - Current Medication List Current Medications: Active Medications Acetaminophen (Tylenol -) 650 mg PO Q4H PRN PRN Reason: PAIN Last Admin: 05/05/18 17:06 Dose: 650 mg Albuterol Sulfate (Ventolin 0.083% Nebulizer Soln -) 1 amp NEB Q4H PRN PRN Reason: SHORT OF BREATH/WHEEZING Albuterol/Ipratropium (Duoneb -) 1 amp NEB RQID [facility] Last Admin: 05/08/18 07:46 Dose: 1 amp Budesonide/Formoterol Fumarate (Symbicort 160/4.5mcg -) 2 puff IH BID [facility] Last Admin: 05/07/18 21:22 Dose: 2 puff Clonazepam (Klonopin -) 0.5 mg PO DAILY PRN PRN Reason: ANXIETY Last Admin: 05/08/18 04:08 Dose: 0.5 mg Escitalopram Oxalate (Lexapro -) 10 mg PO DAILY [facility] Last Admin: 05/07/18 10:52 Dose: 10 mg Guaifenesin (Mucinex -) 600 mg PO BID [facility] Last Admin: 05/07/18 21:21 Dose: 600 mg Vancomycin HCl (Vancomycin (Pre-Docked)) 1,000 mg in 250 mls @ 166.667 mls/hr IVPB Q24H [facility]; Protocol Last Admin: 05/07/18 13:40 Dose: 166.667 mls/hr Piperacillin Sod/Tazobactam (Sod 4.5 gm/ Dextrose) 100 mls @ 200 mls/hr IVPB Q8H-IV [facility]; Protocol Last Admin: 05/08/18 02:00 Dose: 200 mls/hr Sodium Chloride (Normal Saline -) 1,000 mls @ 100 mls/hr IV ASDIR [facility] Last Admin: 05/07/18 16:25 Dose: 100 mls/hr Lactobacillus Acidophilus (Bacid -) 1 tab PO DAILY [facility] Last Admin: 05/07/18 10:52 Dose: 1 tab Methylprednisolone Sodium Succinate (Solu-Medrol -) 40 mg IVPUSH Q8H-IV [facility] Last Admin: 05/08/18 01:48 Dose: 40 mg Nicotine (Nicoderm Patch -) 7 mg TD DAILY [facility] Last Admin: 05/07/18 10:52 Dose: 7 mg Potassium Chloride (K-Dur -) 40 meq PO DAILY [facility] Last Admin: 05/07/18 10:52 Dose: 40 meq Quetiapine Fumarate (Seroquel Xr -) 200 mg PO HS [facility] Last Admin: 05/07/18 21:21 Dose: 200 mg Tiotropium [place] (Spiriva Respimat) 2 puff IH DAILY [facility] Last Admin: 05/07/18 10:56 Dose: 2 puff - Objective Vital Signs: Vital Signs Temperature 97.9 F 05/08/18 02:00 Pulse Rate 88 05/08/18 02:00 Respiratory Rate 20 05/08/18 02:00 Blood Pressure 147/79 05/08/18 02:00 O2 Sat by Pulse Oximetry (%) 95 05/07/18 20:58 Constitutional: Yes: No Distress, Thin Respiratory: Yes: Cough, On Nasal O2, Rales (bibasilar), Rhonchi, SOB, SOB on Exertion, Tachypnea, Wheezes. No: Accessory Muscle Use Gastrointestinal: Yes: WNL, Normal Bowel Sounds, Soft. No: Distention, Tenderness Genitourinary: Yes: Incontinence Extremities: Yes: WNL Edema: No Neurological: Yes: WNL, Alert, Oriented Psychiatric: Yes: WNL, Alert, Oriented Labs: CBC, BMP 05/08/18 05:30 05/08/18 05:30 INR, PTT INR 1.28 (0.83-1.09) H 05/07/18 06:25 Assessment/Plan (1) Sepsis Assessment/Plan: 2/2 CAP, improving slowly wbc count unreliable as pt is on steroids Zosyn/Vanco ID following Code(s): A41.9 - SEPSIS, UNSPECIFIED ORGANISM Qualifiers: Sepsis type: sepsis due to unspecified organism Qualified Code(s): A41.9 - Sepsis, unspecified organism (2) Acute respiratory failure with hypoxia Assessment/Plan: abg ordered and reviewed- met alkalosis, hypoxia, suspect hyperventilation from anxiety 2/2 copd exacerbation, suspect triggered by pna O2 via NC iv medrol duonebs pulm following Code(s): J96.01 - ACUTE RESPIRATORY FAILURE WITH HYPOXIA (3) Pneumonia Assessment/Plan: as above Code(s): J18.9 - PNEUMONIA, UNSPECIFIED ORGANISM Qualifiers: Pneumonia type: due to unspecified organism Laterality: right Lung location: lower lobe of lung Qualified Code(s): J18.1 - Lobar pneumonia, unspecified organism (4) Pleural effusion Assessment/Plan: chest CT- extensive rll infiltrate, multiple abscess/effusion, atelectasis, nodule case discussed w/ pulm r/o parapneumonic lovenox on hold thoracentesis today Code(s): J90 - PLEURAL EFFUSION, NOT ELSEWHERE CLASSIFIED (5) Pericardial effusion Assessment/Plan: small evaluated by cardiology outpt f/u once clinically improved Code(s): I31.3 - PERICARDIAL EFFUSION (NONINFLAMMATORY) (6) COPD exacerbation Assessment/Plan: as above Code(s): J44.1 - CHRONIC OBSTRUCTIVE PULMONARY DISEASE W (ACUTE) EXACERBATION (7) Metabolic encephalopathy Assessment/Plan: resolved suspect 2/[address] pending aspiration precautions speech eval- r/o aspiration Code(s): G93.41 - METABOLIC ENCEPHALOPATHY (8) Leukocytosis Assessment/Plan: as above Code(s): D72.829 - ELEVATED WHITE BLOOD CELL COUNT, UNSPECIFIED (9) Hypokalemia Assessment/Plan: improved kcl 40meq monitor bmp Code(s): E87.6 - HYPOKALEMIA (10) Anemia Assessment/Plan: anemia of chronic disease outpt hematology f/u Code(s): D64.9 - ANEMIA, UNSPECIFIED Qualifiers: Anemia type: unspecified type Qualified Code(s): D64.9 - Anemia, unspecified (11) Anxiety Assessment/Plan: continue home meds decreased klonopin and lexapro to avoid lethargy Code(s): F41.9 - ANXIETY DISORDER, UNSPECIFIED (12) COPD (chronic obstructive pulmonary disease) Assessment/Plan: acute on chronic, severe obstructive disease on PFTs 2016 spiriva/symbicort as above Code(s): J44.9 - CHRONIC OBSTRUCTIVE PULMONARY DISEASE, UNSPECIFIED Qualifiers: COPD type: chronic bronchitis (13) Abnormal CT of the chest Assessment/Plan: worsened CT findings since 04/22 fam hx of lung ca as above Code(s): R93.89 - ABNORMAL FINDINGS ON DX IMAGING OF OTH BODY STRUCTURES (14) Tobacco dependence Assessment/Plan: nicotine patch encourage cessation Code(s): F17.200 - NICOTINE DEPENDENCE, UNSPECIFIED, UNCOMPLICATED
[2018-05-08] MEDS: POTASSIUM CHLORIDE TABS 20 MEQ TABLET.ER (FP) PO SCH (09:46)
[2018-05-08] MEDS: ESCITALOPRAM OXALATE 10 MG TABLET (FP) PO SCH (09:46)
[2018-05-08] MEDS: guaiFENesin 600 MG TABLET.ER (FP) PO SCH ×2 (09:46→21:13)
[2018-05-08] MEDS: LACTOBACILLUS ACIDOPHILUS 1 TABLET PO SCH (09:46)
[2018-05-08] MEDS: NICOTINE 7 MG/24 HOURS TOPICAL PATCH TD SCH (09:47)
[2018-05-08] MEDS: TIOTROPIUM BROMIDE 2.5 MCG (SPIRIVA) RESPIMAT INHALER IH SCH (09:47)
[2018-05-08 09:48] LABS: ANISOCYTOSIS 2+; MACROCYTOSIS 0; PLATELET ESTIMATE NORMAL; TARGET CELLS 1+
[2018-05-08] MEDS: BUDESONIDE/FORMETEROL FUMARATE 160/4.5 mcg INHALER IH SCH ×2 (09:48→22:09)
--- NOTE | 2018-05-08 09:51 | PN ---
Progress Note (short form) - Note Progress Note: Chief Complaint: sob History of Present Illness: still sob, no cp, palps, dizziness, lightheadedness Current Medications Acetaminophen (Tylenol -) 650 mg PO Q4H PRN PRN Reason: PAIN Last Admin: 05/05/18 17:06 Dose: 650 mg Albuterol Sulfate (Ventolin 0.083% Nebulizer Soln -) 1 amp NEB Q4H PRN PRN Reason: SHORT OF BREATH/WHEEZING Last Admin: 05/08/18 09:40 Dose: 1 amp Albuterol/Ipratropium (Duoneb -) 1 amp NEB RQID [facility] Last Admin: 05/08/18 07:46 Dose: 1 amp Budesonide/Formoterol Fumarate (Symbicort 160/4.5mcg -) 2 puff IH BID [facility] Last Admin: 05/08/18 09:48 Dose: 2 puff Clonazepam (Klonopin -) 0.5 mg PO DAILY PRN PRN Reason: ANXIETY Last Admin: 05/08/18 04:08 Dose: 0.5 mg Escitalopram Oxalate (Lexapro -) 10 mg PO DAILY [facility] Last Admin: 05/08/18 09:46 Dose: 10 mg Guaifenesin (Mucinex -) 600 mg PO BID [facility] Last Admin: 05/08/18 09:46 Dose: 600 mg Vancomycin HCl (Vancomycin (Pre-Docked)) 1,000 mg in 250 mls @ 166.667 mls/hr IVPB Q24H [facility]; Protocol Last Admin: 05/07/18 13:40 Dose: 166.667 mls/hr Piperacillin Sod/Tazobactam (Sod 4.5 gm/ Dextrose) 100 mls @ 200 mls/hr IVPB Q8H-IV [facility]; Protocol Last Admin: 05/08/18 02:00 Dose: 200 mls/hr Sodium Chloride (Normal Saline -) 1,000 mls @ 100 mls/hr IV ASD[facility] Last Admin: 05/07/18 16:25 Dose: 100 mls/hr Lactobacillus Acidophilus (Bacid -) 1 tab PO DAILY [facility] Last Admin: 05/08/18 09:46 Dose: 1 tab Methylprednisolone Sodium Succinate (Solu-Medrol -) 40 mg IVPUSH Q8H-IV [facility] Last Admin: 05/08/18 09:47 Dose: 40 mg Nicotine (Nicoderm Patch -) 7 mg TD DAILY [facility] Last Admin: 05/08/18 09:47 Dose: 7 mg Potassium Chloride (K-Dur -) 40 meq PO DAILY [facility] Last Admin: 05/08/18 09:46 Dose: 40 meq Quetiapine Fumarate (Seroquel Xr -) 200 mg PO HS [facility] Last Admin: 05/07/18 21:21 Dose: 200 mg Tiotropium [place] (Spiriva Respimat) 2 puff IH DAILY [facility] Last Admin: 05/08/18 09:47 Dose: 2 puff - Objective Vital Signs Period Temp Pulse Resp BP Sys/Torres Pulse Ox Last 24 Hr 97.5 F-98.8 F 73-96 20-20 119-147/55-79 93-95 Constitutional: Yes: Well Nourished, No Distress, Calm Cardiovascular: Yes: Regular Rate and Rhythm (decr intensity (c/w copd)), S1, S2. No: Gallop, Murmur Respiratory: Yes: Regular, CTA Bilaterally. No: Accessory Muscle Use, Wheezes Extremities: No: Cold Edema: No Neurological: Yes: Alert, Oriented Psychiatric: No: Agitated Assessment/Plan ct chest: bl pna, very small peric eff ecg: sr, nl intervals, irbbb echo 04/2018: tds, nl lv/rv, small peric eff, valves not mentioned a/p: 67 m hx anxiety, copd, smoking, here with malaise, uri sxs. pna, parapneumonic -plan per ID, pulm copd: -seems stable, inhalers per pulm tob use: -smoking cessation counselled here pericardial effusion: -small peric eff, no signs of tamponade including clinically. Repeat echo after acute issues resolved as outpt. off tele, awaiting med/surg bed
[2018-05-08 09:57] LABS: ALLENS TEST POSITIVE; ARTERIAL BLOOD GAS PCO2 37.8 mmHg (35-45); ARTERIAL BLOOD GAS PO2 52.4 mmHg (80-100); ARTERIAL BLOOD GAS pH 7.48 (7.35-7.45)
[2018-05-08 09:58] LABS: ARTERIAL BLD GAS O2 SATURATION 85.1 % (90-98.9)
[2018-05-08 10:03] LABS: ARTERIAL BLOOD GAS BASE EXCESS 4.4 meq/l (-2-2)
[2018-05-08] MEDS ORDERED: clonazePAM 0.5 MG TABLET PO ONE (10:17)
--- NOTE | 2018-05-08 11:10 | PN ---
Progress Note, Physician History of Present Illness: pulmonary awake ,still congested,+ cough - Current Medication List Current Medications: Active Medications Acetaminophen (Tylenol -) 650 mg PO Q4H PRN PRN Reason: PAIN Last Admin: 05/05/18 17:06 Dose: 650 mg Albuterol Sulfate (Ventolin 0.083% Nebulizer Soln -) 1 amp NEB Q4H PRN PRN Reason: SHORT OF BREATH/WHEEZING Last Admin: 05/08/18 09:40 Dose: 1 amp Albuterol/Ipratropium (Duoneb -) 1 amp NEB RQID [facility] Last Admin: 05/08/18 07:46 Dose: 1 amp Budesonide/Formoterol Fumarate (Symbicort 160/4.5mcg -) 2 puff IH BID [facility] Last Admin: 05/08/18 09:48 Dose: 2 puff Clonazepam (Klonopin -) 0.5 mg PO DAILY PRN PRN Reason: ANXIETY Last Admin: 05/08/18 04:08 Dose: 0.5 mg Escitalopram Oxalate (Lexapro -) 10 mg PO DAILY [facility] Last Admin: 05/08/18 09:46 Dose: 10 mg Guaifenesin (Mucinex -) 600 mg PO BID [facility] Last Admin: 05/08/18 09:46 Dose: 600 mg Vancomycin HCl (Vancomycin (Pre-Docked)) 1,000 mg in 250 mls @ 166.667 mls/hr IVPB Q24H [facility]; Protocol Last Admin: 05/07/18 13:40 Dose: 166.667 mls/hr Piperacillin Sod/Tazobactam (Sod 4.5 gm/ Dextrose) 100 mls @ 200 mls/hr IVPB Q8H-IV [facility]; Protocol Last Admin: 05/08/18 10:21 Dose: 200 mls/hr Sodium Chloride (Normal Saline -) 1,000 mls @ 100 mls/hr IV ASDIR [facility] Last Admin: 05/07/18 16:25 Dose: 100 mls/hr Lactobacillus Acidophilus (Bacid -) 1 tab PO DAILY [facility] Last Admin: 05/08/18 09:46 Dose: 1 tab Methylprednisolone Sodium Succinate (Solu-Medrol -) 40 mg IVPUSH Q8H-IV [facility] Last Admin: 05/08/18 09:47 Dose: 40 mg Nicotine (Nicoderm Patch -) 7 mg TD DAILY [facility] Last Admin: 05/08/18 09:47 Dose: 7 mg Potassium Chloride (K-Dur -) 40 meq PO DAILY [facility] Last Admin: 05/08/18 09:46 Dose: 40 meq Quetiapine Fumarate (Seroquel Xr -) 200 mg PO HS [facility] Last Admin: 05/07/18 21:21 Dose: 200 mg Tiotropium [place] (Spiriva Respimat) 2 puff IH DAILY [facility] Last Admin: 05/08/18 09:47 Dose: 2 puff - Objective Vital Signs: Vital Signs Temperature 98.3 F 05/08/18 08:00 Pulse Rate 73 05/08/18 08:00 Respiratory Rate 20 05/08/18 08:00 Blood Pressure 119/61 05/08/18 08:00 O2 Sat by Pulse Oximetry (%) 95 05/08/18 09:00 Constitutional: Yes: Well Nourished, Calm Eyes: Yes: WNL HENT: Yes: WNL Neck: Yes: WNL Cardiovascular: Yes: Regular Rate and Rhythm, S1, S2 Respiratory: Yes: Rhonchi (scattered tomas rhonchi) Gastrointestinal: Yes: Normal Bowel Sounds, Soft Extremities: Yes: WNL Edema: No Labs: CBC, BMP 05/08/18 05:30 05/08/18 05:30 INR, PTT INR 1.28 (0.83-1.09) H 05/07/18 06:25 Assessment/Plan RLL INFILTRATE WITH ASSOCIATED PLEURAL EFFUSION COPD PERICARDIAL EFFUSION TOBACCO ABUSE PLAN CONTINUE ANTIBIOTICS DIAGNOSTIC THORACENTESIS WOULD AVOID OVER SEDATION GIVEN UNDERLYING PSYCH HISTORY TITRATE O2 TO KEEP SAT >90% JOSE MUNSON Problem List - Problems (1) Pleural effusion associated with pulmonary infection Code(s): J18.9 - PNEUMONIA, UNSPECIFIED ORGANISM; J91.8 - PLEURAL EFFUSION IN OTHER CONDITIONS CLASSIFIED ELSEWHERE (2) Abnormal CT of the chest Code(s): R93.89 - ABNORMAL FINDINGS ON DX IMAGING OF OTH BODY STRUCTURES (3) Anemia Code(s): D64.9 - ANEMIA, UNSPECIFIED Qualifiers: Anemia type: unspecified type Qualified Code(s): D64.9 - Anemia, unspecified (4) Anxiety Code(s): F41.9 - ANXIETY DISORDER, UNSPECIFIED (5) COPD (chronic obstructive pulmonary disease) Code(s): J44.9 - CHRONIC OBSTRUCTIVE PULMONARY DISEASE, UNSPECIFIED Qualifiers: COPD type: chronic bronchitis (6) Pneumonia Code(s): J18.9 - PNEUMONIA, UNSPECIFIED ORGANISM Qualifiers: Pneumonia type: due to unspecified organism Laterality: right Lung location: lower lobe of lung Qualified Code(s): J18.1 - Lobar pneumonia, unspecified organism (7) Tobacco dependence Code(s): F17.200 - NICOTINE DEPENDENCE, UNSPECIFIED, UNCOMPLICATED (8) Vertigo Code(s): R42 - DIZZINESS AND GIDDINESS
--- NOTE | 2018-05-08 14:17 | PN ---
Progress Note, Physician History of Present Illness: patient stable patent had thoracocentesis done - Current Medication List Current Medications: Active Medications Acetaminophen (Tylenol -) 650 mg PO Q4H PRN PRN Reason: PAIN Last Admin: 05/05/18 17:06 Dose: 650 mg Albuterol Sulfate (Ventolin 0.083% Nebulizer Soln -) 1 amp NEB Q4H PRN PRN Reason: SHORT OF BREATH/WHEEZING Last Admin: 05/08/18 09:40 Dose: 1 amp Albuterol/Ipratropium (Duoneb -) 1 amp NEB RQID [facility] Last Admin: 05/08/18 11:47 Dose: Not Given Budesonide/Formoterol Fumarate (Symbicort 160/4.5mcg -) 2 puff IH BID [facility] Last Admin: 05/08/18 09:48 Dose: 2 puff Clonazepam (Klonopin -) 0.5 mg PO DAILY PRN PRN Reason: ANXIETY Last Admin: 05/08/18 04:08 Dose: 0.5 mg Escitalopram Oxalate (Lexapro -) 10 mg PO DAILY [facility] Last Admin: 05/08/18 09:46 Dose: 10 mg Guaifenesin (Mucinex -) 600 mg PO BID [facility] Last Admin: 05/08/18 09:46 Dose: 600 mg Vancomycin HCl (Vancomycin (Pre-Docked)) 1,000 mg in 250 mls @ 166.667 mls/hr IVPB Q24H [facility]; Protocol Last Admin: 05/07/18 13:40 Dose: 166.667 mls/hr Piperacillin Sod/Tazobactam (Sod 4.5 gm/ Dextrose) 100 mls @ 200 mls/hr IVPB Q8H-IV [facility]; Protocol Last Admin: 05/08/18 10:21 Dose: 200 mls/hr Sodium Chloride (Normal Saline -) 1,000 mls @ 100 mls/hr IV ASDIR [facility] Last Admin: 05/07/18 16:25 Dose: 100 mls/hr Lactobacillus Acidophilus (Bacid -) 1 tab PO DAILY [facility] Last Admin: 05/08/18 09:46 Dose: 1 tab Methylprednisolone Sodium Succinate (Solu-Medrol -) 40 mg IVPUSH Q8H-IV [facility] Last Admin: 05/08/18 09:47 Dose: 40 mg Nicotine (Nicoderm Patch -) 7 mg TD DAILY [facility] Last Admin: 05/08/18 09:47 Dose: 7 mg Potassium Chloride (K-Dur -) 40 meq PO DAILY [facility] Last Admin: 05/08/18 09:46 Dose: 40 meq Quetiapine Fumarate (Seroquel Xr -) 200 mg PO HS [facility] Last Admin: 05/07/18 21:21 Dose: 200 mg Tiotropium [place] (Spiriva Respimat) 2 puff IH DAILY [facility] Last Admin: 05/08/18 09:47 Dose: 2 puff - Objective Vital Signs: Vital Signs Temperature 98.3 F 05/08/18 08:00 Pulse Rate 73 05/08/18 08:00 Respiratory Rate 20 05/08/18 08:00 Blood Pressure 119/61 05/08/18 08:00 O2 Sat by Pulse Oximetry (%) 95 05/08/18 09:00 Constitutional: Yes: No Distress Cardiovascular: Yes: Regular Rate and Rhythm Respiratory: Yes: Regular, On Nasal O2, Poor Air Entry Musculoskeletal: Yes: WNL Extremities: Yes: WNL Neurological: Yes: Alert, Oriented Psychiatric: Yes: Alert, Oriented Labs: CBC, BMP 05/08/18 05:30 05/08/18 05:30 INR, PTT INR 1.28 (0.83-1.09) H 05/07/18 06:25 Assessment/Plan Assessment/Plan (1) Sepsis Code(s): A41.9 - SEPSIS, UNSPECIFIED ORGANISM Qualifiers: Sepsis type: sepsis due to unspecified organism Qualified Code(s): A41.9 - Sepsis, unspecified organism (2) Pneumonia Code(s): J18.9 - PNEUMONIA, UNSPECIFIED ORGANISM Qualifiers: Pneumonia type: due to unspecified organism Laterality: right Lung location: lower lobe of lung Qualified Code(s): J18.1 - Lobar pneumonia, unspecified organism (3) Pleural effusion Code(s): J90 - PLEURAL EFFUSION, NOT ELSEWHERE CLASSIFIED (4) Metabolic encephalopathy Code(s): G93.41 - METABOLIC ENCEPHALOPATHY (5) Leukocytosis Code(s): D72.829 - ELEVATED WHITE BLOOD CELL COUNT, UNSPECIFIED (6) Hypokalemia Code(s): E87.6 - HYPOKALEMIA (7) Anemia Code(s): D64.9 - ANEMIA, UNSPECIFIED Qualifiers: Anemia type: unspecified type Qualified Code(s): D64.9 - Anemia, unspecified (8) Anxiety Code(s): F41.9 - ANXIETY DISORDER, UNSPECIFIED (9) COPD (chronic obstructive pulmonary disease) Code(s): J44.9 - CHRONIC OBSTRUCTIVE PULMONARY DISEASE, UNSPECIFIED Qualifiers: COPD type: chronic bronchitis (10) Abnormal CT of the chest Code(s): R93.89 - ABNORMAL FINDINGS ON DX IMAGING OF OTH BODY STRUCTURES (11) Tobacco dependence Code(s): F17.200 - NICOTINE DEPENDENCE, UNSPECIFIED, UNCOMPLICATED parapneumonic effusion plan continue current mgmt post thoracocentesis stable cx to be send rest as per the team
[2018-05-08] MEDS ORDERED: PT OWN MED DRAWER 7, Y5N ONE (14:20)
[2018-05-08] MEDS: VANCOMYCIN 1 GRAM (PRE-DOCKED) 1,000 MG/250 ML BAG IVPB SCH (15:00)
[2018-05-08] MEDS: SODIUM CHLORIDE 1,000 ML IV SCH (16:38)
[2018-05-08 16:49] LABS: BF WBC & OTHER NUCLEATED CELLS 554 /mm3
[2018-05-08 19:56] LABS: BODY FLUID MACROPHAGES 7 %
[2018-05-08] MEDS ORDERED: ACETAMINOPHEN 325 MG TABLET (FP) PO PRN (20:11)
[2018-05-08] MEDS ORDERED: ALBUTEROL SO4 0.083% IH SOL 2.5 MG/3 ML VIAL.NEB. NEB PRN (20:11)
[2018-05-09] MEDS ORDERED: DEXTROSE 5%-WATER 100 ML IVPB ONE ×3 (00:56→17:35)
[2018-05-09] MEDS ORDERED: PIPERACILLIN/TAZOBACTAM 4.5 GM VIAL IVPB ONE ×3 (00:56→17:35)
[2018-05-09] MEDS: methylPREDNISolone NA SUCC 40 MG/1 ML VIAL IVPUSH SCH ×3 (01:06→21:42)
[2018-05-09] MEDS: PIPERACILLIN/TAZOB 4.5 GM 4.5 GM in DEXTROSE 5%-WATER 100 ML IVPB SCH ×3 (01:23→18:16)
[2018-05-09] MEDS: clonazePAM 0.5 MG TABLET PO PRN (05:59)
[2018-05-09 06:56] LABS: BASO % 0.2 % (0-2.0); LYMPH % 4.2 % (8-40); MCH 27.6 pg (25.7-33.7); MCHC 32.1 g/dl (32.0-35.9); MEAN PLT VOLUME 7.6 fl (7.5-11.1); MONO % 3.9 % (3.8-10.2); NEUT % 91.7 % (42.8-82.8); PLATELET COUNT 439 K/MM3 (134-434); RBC 3.25 M/mm3 (4.00-5.60); RDW 16.2 % (11.9-15.9); WHITE BLOOD COUNT 18.1 K/mm3 (4.0-10.0)
[2018-05-09 07:22] LABS: ANION GAP 6 MMOL/L (8-16); BLOOD UREA NITROGEN 10 mg/dL (7-18); CALCIUM 7.5 mg/dL (8.5-10.1); CHLORIDE 106 mmol/L (98-107); CO2 28 mmol/L (21-32); CREATININE 0.4 mg/dL (0.55-1.3); GLUCOSE,RANDOM 156 mg/dL (74-106); MAGNESIUM 2.7 mg/dL (1.8-2.4); POTASSIUM 4.2 mmol/L (3.5-5.1); SODIUM 139 mmol/L (136-145)
[2018-05-09] MEDS: ALBUTEROL SO4 2.5/IPRATROPIUM 0.5 INH SOL 3 ML VIAL.NEB. NEB SCH ×4 (07:58→20:54)
[2018-05-09] MEDS ORDERED: PT OWN MED DRAWER 7, Y5N ONE ×3 (08:13→21:11)
[2018-05-09] MEDS: guaiFENesin 600 MG TABLET.ER (FP) PO SCH ×2 (09:53→21:42)
[2018-05-09] MEDS: POTASSIUM CHLORIDE TABS 20 MEQ TABLET.ER (FP) PO SCH (09:53)
[2018-05-09] MEDS: ENOXAPARIN NA (PORCINE) 40 MG/0.4 ML DISP.SYRIN SQ SCH (09:54)
[2018-05-09] MEDS: ESCITALOPRAM OXALATE 10 MG TABLET (FP) PO SCH (09:54)
[2018-05-09] MEDS: LACTOBACILLUS ACIDOPHILUS 1 TABLET PO SCH (09:54)
[2018-05-09] MEDS: NICOTINE 7 MG/24 HOURS TOPICAL PATCH TD SCH (09:54)
[2018-05-09] MEDS ORDERED: TIOTROPIUM BROMIDE 2.5 MCG (SPIRIVA) RESPIMAT INHALER IH SCH (10:00)
[2018-05-09] MEDS: BUDESONIDE/FORMETEROL FUMARATE 160/4.5 mcg INHALER IH SCH ×2 (11:07→21:49)
--- NOTE | 2018-05-09 11:17 | PN ---
Progress Note, Physician Chief Complaint: Pt lying in bed in no acute distress. pt reports breathing improved. requesting more of his anxiety meds. Denies any chest pain, n/v/d - Current Medication List Current Medications: Active Medications Acetaminophen (Tylenol -) 650 mg PO Q4H PRN PRN Reason: PAIN LEVEL 1 - 3 Last Admin: 05/08/18 21:14 Dose: 650 mg Albuterol Sulfate (Ventolin 0.083% Nebulizer Soln -) 1 amp NEB Q4H PRN PRN Reason: SHORT OF BREATH/WHEEZING Albuterol/Ipratropium (Duoneb -) 1 amp NEB RQID [facility] Last Admin: 05/09/18 07:58 Dose: 1 amp Budesonide/Formoterol Fumarate (Symbicort 160/4.5mcg -) 2 puff IH BID [facility] Last Admin: 05/09/18 11:07 Dose: 2 inh Clonazepam (Klonopin -) 0.5 mg PO Q24H PRN PRN Reason: ANXIETY Last Admin: 05/09/18 05:59 Dose: 0.5 mg Enoxaparin Sodium (Lovenox -) 40 mg SQ DAILY [facility] Last Admin: 05/09/18 09:54 Dose: 40 mg Escitalopram Oxalate (Lexapro -) 10 mg PO DAILY [facility] Last Admin: 05/09/18 09:54 Dose: 10 mg Guaifenesin (Mucinex -) 600 mg PO BID [facility] Last Admin: 05/09/18 09:53 Dose: 600 mg Vancomycin HCl (Vancomycin (Pre-Docked)) 1,000 mg in 250 mls @ 166.667 mls/hr IVPB Q24H [facility]; Protocol Piperacillin Sod/Tazobactam (Sod 4.5 gm/ Dextrose) 100 mls @ 200 mls/hr IVPB Q8H-IV [facility]; Protocol Last Admin: 05/09/18 09:53 Dose: 200 mls/hr Lactobacillus Acidophilus (Bacid -) 1 tab PO DAILY [facility] Last Admin: 05/09/18 09:54 Dose: 1 tab Methylprednisolone Sodium Succinate (Solu-Medrol -) 40 mg IVPUSH Q8H-IV [facility] Last Admin: 05/09/18 09:53 Dose: 40 mg Nicotine (Nicoderm Patch -) 7 mg TD DAILY [facility] Last Admin: 05/09/18 09:54 Dose: 7 mg Potassium Chloride (K-Dur -) 40 meq PO DAILY [facility] Last Admin: 05/09/18 09:53 Dose: 40 meq Quetiapine Fumarate (Seroquel Xr -) 200 mg PO HS [facility] Last Admin: 05/08/18 21:14 Dose: 200 mg Tiotropium [place] (Spiriva Respimat) 2 puff IH DAILY [facility] Last Admin: 05/09/18 09:54 Dose: 2 puff - Objective Vital Signs: Vital Signs Temperature 97.8 F 05/09/18 09:00 Pulse Rate 88 05/09/18 09:00 Respiratory Rate 18 05/09/18 09:00 Blood Pressure 122/68 05/09/18 09:00 O2 Sat by Pulse Oximetry (%) 97 05/08/18 22:48 Constitutional: Yes: No Distress, Calm, Thin Cardiovascular: Yes: Regular Rate and Rhythm Respiratory: Yes: Regular, Diminished, On Nasal O2, Rales (bibasilar). No: Accessory Muscle Use, SOB, Tachypnea Gastrointestinal: Yes: WNL, Normal Bowel Sounds, Soft. No: Distention, Tenderness Genitourinary: Yes: WNL Extremities: Yes: WNL Edema: No Neurological: Yes: WNL, Alert, Oriented Psychiatric: Yes: WNL, Alert, Oriented Labs: CBC, BMP 05/09/18 05:30 05/09/18 06:00 INR, PTT INR 1.28 (0.83-1.09) H 05/07/18 06:25 Assessment/Plan (1) Sepsis Assessment/Plan: 2/2 CAP w/ parapneumonic effusion s/p thoracentesis wbc count unreliable as pt is on steroids Zosyn/Vanco day 6 check vanc trough ID following Code(s): A41.9 - SEPSIS, UNSPECIFIED ORGANISM Qualifiers: Sepsis type: sepsis due to unspecified organism Qualified Code(s): A41.9 - Sepsis, unspecified organism (2) Acute respiratory failure with hypoxia Assessment/Plan: improving O2 via NC iv medrol taper duonebs pulm following Code(s): J96.01 - ACUTE RESPIRATORY FAILURE WITH HYPOXIA (3) Pneumonia Assessment/Plan: as above Code(s): J18.9 - PNEUMONIA, UNSPECIFIED ORGANISM Qualifiers: Pneumonia type: due to unspecified organism Laterality: right Lung location: lower lobe of lung Qualified Code(s): J18.1 - Lobar pneumonia, unspecified organism (4) Parapneumonic effusion Assessment/Plan: as above await culture/cytology Code(s): J18.9 - PNEUMONIA, UNSPECIFIED ORGANISM; J91.8 - PLEURAL EFFUSION IN OTHER CONDITIONS CLASSIFIED ELSEWHERE (5) Pericardial effusion Assessment/Plan: small evaluated by cardiology outpt f/u once clinically improved Code(s): I31.3 - PERICARDIAL EFFUSION (NONINFLAMMATORY) (6) COPD exacerbation Assessment/Plan: improving medrol taper nebs Code(s): J44.1 - CHRONIC OBSTRUCTIVE PULMONARY DISEASE W (ACUTE) EXACERBATION (7) Metabolic encephalopathy Assessment/Plan: resolved suspect 2/2 meds aspiration precautions speech eval- r/o aspiration Code(s): G93.41 - METABOLIC ENCEPHALOPATHY (8) Leukocytosis Assessment/Plan: as above Code(s): D72.829 - ELEVATED WHITE BLOOD CELL COUNT, UNSPECIFIED (9) Hypokalemia Assessment/Plan: resolved Code(s): E87.6 - HYPOKALEMIA (10) Anemia Assessment/Plan: anemia of chronic disease outpt hematology f/u Code(s): D64.9 - ANEMIA, UNSPECIFIED Qualifiers: Anemia type: unspecified type Qualified Code(s): D64.9 - Anemia, unspecified (11) Anxiety Assessment/Plan: continue home meds decreased klonopin and lexapro to avoid lethargy Code(s): F41.9 - ANXIETY DISORDER, UNSPECIFIED (12) COPD (chronic obstructive pulmonary disease) Assessment/Plan: acute on chronic, severe obstructive disease on PFTs 2016 spiriva/symbicort as above Code(s): J44.9 - CHRONIC OBSTRUCTIVE PULMONARY DISEASE, UNSPECIFIED Qualifiers: COPD type: chronic bronchitis (13) Abnormal CT of the chest Assessment/Plan: worsened CT findings since 04/22 fam hx of lung ca as above Code(s): R93.89 - ABNORMAL FINDINGS ON DX IMAGING OF OTH BODY STRUCTURES (14) Tobacco dependence Assessment/Plan: nicotine patch encourage cessation Code(s): F17.200 - NICOTINE DEPENDENCE, UNSPECIFIED, UNCOMPLICATED
[2018-05-09] MEDS: QUEtiapine FUMARATE 25 MG TABLET (FP) PO PRN (11:41)
[2018-05-09 11:55] LABS: ANISOCYTOSIS 1+; MACROCYTOSIS 1+; OVALOCYTE 1+; PLATELET ESTIMATE NORMAL
--- NOTE | 2018-05-09 12:37 | PN ---
Progress Note (short form) - Note Progress Note: PULMONARY Breathing much improved. Less cough and wheezing. Vital Signs Period Temp Pulse Resp BP Sys/Torres Pulse Ox Last 24 Hr 97.4 F-98.5 F 80-90 18-20 122-133/65-75 97-97 Gen: less tachypneic Heart: RRR Lung: less rhonchi, wheezing Abd: soft, nontender Ext: no edema CBC, BMP 05/09/18 05:30 05/09/18 06:00 Active Medications Acetaminophen (Tylenol -) 650 mg PO Q4H PRN PRN Reason: PAIN LEVEL 1 - 3 Last Admin: 05/08/18 21:14 Dose: 650 mg Albuterol Sulfate (Ventolin 0.083% Nebulizer Soln -) 1 amp NEB Q4H PRN PRN Reason: SHORT OF BREATH/WHEEZING Albuterol/Ipratropium (Duoneb -) 1 amp NEB RQID [facility] Last Admin: 05/09/18 11:32 Dose: 1 amp Budesonide/Formoterol Fumarate (Symbicort 160/4.5mcg -) 2 puff IH BID [facility] Last Admin: 05/09/18 11:07 Dose: 2 inh Clonazepam (Klonopin -) 0.5 mg PO Q24H PRN PRN Reason: ANXIETY Last Admin: 05/09/18 05:59 Dose: 0.5 mg Enoxaparin Sodium (Lovenox -) 40 mg SQ DAILY [facility] Last Admin: 05/09/18 09:54 Dose: 40 mg Escitalopram Oxalate (Lexapro -) 10 mg PO DAILY [facility] Last Admin: 05/09/18 09:54 Dose: 10 mg Guaifenesin (Mucinex -) 600 mg PO BID [facility] Last Admin: 05/09/18 09:53 Dose: 600 mg Vancomycin HCl (Vancomycin (Pre-Docked)) 1,000 mg in 250 mls @ 166.667 mls/hr IVPB Q24H [facility]; Protocol Piperacillin Sod/Tazobactam (Sod 4.5 gm/ Dextrose) 100 mls @ 200 mls/hr IVPB Q8H-[facility]; Protocol Last Admin: 05/09/18 09:53 Dose: 200 mls/hr Lactobacillus Acidophilus (Bacid -) 1 tab PO DAILY [facility] Last Admin: 05/09/18 09:54 Dose: 1 tab Methylprednisolone Sodium Succinate (Solu-Medrol -) 40 mg IVPUSH Q8H-IV [facility] Last Admin: 05/09/18 09:53 Dose: 40 mg Nicotine (Nicoderm Patch -) 7 mg TD DAILY [facility] Last Admin: 05/09/18 09:54 Dose: 7 mg Potassium Chloride (K-Dur -) 40 meq PO DAILY [facility] Last Admin: 05/09/18 09:53 Dose: 40 meq Quetiapine Fumarate (Seroquel Xr -) 200 mg PO HS [facility] Last Admin: 05/08/18 21:14 Dose: 200 mg Quetiapine Fumarate (Seroquel -) 12.5 mg PO BID PRN PRN Reason: ANXIETY Last Admin: 05/09/18 11:41 Dose: 12.5 mg Tiotropium [place] (Spiriva Respimat) 2 puff IH DAILY [facility] Last Admin: 05/09/18 09:54 Dose: 2 puff A/P Pneumonia Parapneumonic Effusion Acute COPD Exacerbation Pericardial Effusion Smoker - continue antibiotics - will decrease medrol to q12h - inhaled bronchodilators - O2 to keep SpO2 >90% - DVT prophylaxis
--- NOTE | 2018-05-09 13:06 | PN ---
Progress Note (short form) - Note Progress Note: s: no cp palps dizzy; sob and cough less today o: Vital Signs Period Temp Pulse Resp BP Sys/Torres Pulse Ox Last 24 Hr 97.4 F-98.5 F 80-90 18-20 122-133/65-75 97-97 nad no jvd rrr s1s2 no mrg scattered rhonchi, nl eff aaox3 no le e/c/c abd nt nd pos bs no jaundice diaphoresis Current Medications Generic Name Dose Route Start Last Admin Trade Name Freq PRN Reason Stop Dose Admin Acetaminophen 650 mg 05/08/18 20:11 05/08/18 21:14 Tylenol - PO 650 mg Q4H PRN Administration PAIN LEVEL 1 - 3 Albuterol Sulfate 1 amp 05/08/18 20:11 Ventolin 0.083% Nebulizer Soln - NEB Q4H PRN SHORT OF BREATH/WHEEZING Albuterol/Ipratropium 1 amp 05/09/18 08:00 05/09/18 11:32 Duoneb - NEB 1 amp RQID [facility] Administration Budesonide/Formoterol Fumarate 2 puff 05/08/18 22:00 05/09/18 11:07 Symbicort 160/4.5mcg - IH 2 inh BID [facility] Administration Clonazepam 0.5 mg 05/08/18 20:11 05/09/18 05:59 Klonopin - PO 0.5 mg Q24H PRN Administration ANXIETY Enoxaparin Sodium 40 mg 05/09/18 10:00 05/09/18 09:54 Lovenox - SQ 40 mg DAILY [facility] Administration Escitalopram Oxalate 10 mg 05/09/18 10:00 05/09/18 09:54 Lexapro - PO 10 mg DAILY [facility] Administration Guaifenesin 600 mg 05/08/18 22:00 05/09/18 09:53 Mucinex - PO 600 mg BID [facility] Administration Vancomycin HCl 1,000 mg in 250 mls @ 166.667 mls/hr 05/09/18 14:00 Vancomycin (Pre-Docked) IVPB Q24H [facility] Protocol Piperacillin Sod/Tazobactam 100 mls @ 200 mls/hr 05/09/18 02:00 05/09/18 09: 53 Sod 4.5 gm/ Dextrose IVPB 200 mls/hr Q8H-IV [facility] Administration Protocol Lactobacillus Acidophilus 1 tab 05/09/18 10:00 05/09/18 09:54 Bacid - PO 1 tab DAILY [facility] Administration Methylprednisolone Sodium Succinate 40 mg 05/09/18 22:00 Solu-Medrol - IVPUSH Q12H [facility] Nicotine 7 mg 05/09/18 10:00 05/09/18 09:54 Nicoderm Patch - TD 7 mg DAILY [facility] Administration Potassium Chloride 40 meq 05/09/18 10:00 05/09/18 09:53 K-Dur - PO 40 meq DAILY [facility] Administration Quetiapine Fumarate 200 mg 05/08/18 22:00 05/08/18 21:14 Seroquel Xr - PO 200 mg HS [facility] Administration Quetiapine Fumarate 12.5 mg 05/09/18 11:16 05/09/18 11:41 Seroquel - PO 12.5 mg BID PRN Administration ANXIETY CBC, BMP 05/09/18 05:30 05/09/18 06:00 ct chest: bl pna, very small peric eff ecg: sr, nl intervals, irbbb echo 04/2018: tds, nl lv/rv, small peric eff, valves not mentioned a/p: 67 m hx anxiety, copd, smoking, here with malaise, uri sxs. pna: -abx per ID copd: -seems stable, inhalers per pulm tob use: -smoking cessation pericardial effusion: -small peric eff, no signs of tamponade. Repeat echo after acute issues resolved as outpt.
[2018-05-09] MEDS ORDERED: VANCOMYCIN 1 GRAM (PRE-DOCKED) 1,000 MG/250 ML BAG IVPB SCH (14:00)
--- NOTE | 2018-05-09 15:31 | PN ---
Progress Note, Physician History of Present Illness: stable no issues says breathing has improved - Current Medication List Current Medications: Active Medications Acetaminophen (Tylenol -) 650 mg PO Q4H PRN PRN Reason: PAIN LEVEL 1 - 3 Last Admin: 05/08/18 21:14 Dose: 650 mg Albuterol Sulfate (Ventolin 0.083% Nebulizer Soln -) 1 amp NEB Q4H PRN PRN Reason: SHORT OF BREATH/WHEEZING Albuterol/Ipratropium (Duoneb -) 1 amp NEB RQID [facility] Last Admin: 05/09/18 11:32 Dose: 1 amp Budesonide/Formoterol Fumarate (Symbicort 160/4.5mcg -) 2 puff IH BID [facility] Last Admin: 05/09/18 11:07 Dose: 2 inh Clonazepam (Klonopin -) 0.5 mg PO Q24H PRN PRN Reason: ANXIETY Last Admin: 05/09/18 05:59 Dose: 0.5 mg Enoxaparin Sodium (Lovenox -) 40 mg SQ DAILY [facility] Last Admin: 05/09/18 09:54 Dose: 40 mg Escitalopram Oxalate (Lexapro -) 10 mg PO DAILY [facility] Last Admin: 05/09/18 09:54 Dose: 10 mg Guaifenesin (Mucinex -) 600 mg PO BID [facility] Last Admin: 05/09/18 09:53 Dose: 600 mg Vancomycin HCl (Vancomycin (Pre-Docked)) 1,000 mg in 250 mls @ 166.667 mls/hr IVPB Q24H [facility]; Protocol Piperacillin Sod/Tazobactam (Sod 4.5 gm/ Dextrose) 100 mls @ 200 mls/hr IVPB Q8H-IV [facility]; Protocol Last Admin: 05/09/18 09:53 Dose: 200 mls/hr Lactobacillus Acidophilus (Bacid -) 1 tab PO DAILY [facility] Last Admin: 05/09/18 09:54 Dose: 1 tab Methylprednisolone Sodium Succinate (Solu-Medrol -) 40 mg IVPUSH Q12H [facility] Nicotine (Nicoderm Patch -) 7 mg TD DAILY [facility] Last Admin: 05/09/18 09:54 Dose: 7 mg Potassium Chloride (K-Dur -) 40 meq PO DAILY [facility] Last Admin: 05/09/18 09:53 Dose: 40 meq Quetiapine Fumarate (Seroquel Xr -) 200 mg PO HS [facility] Last Admin: 05/08/18 21:14 Dose: 200 mg Quetiapine Fumarate (Seroquel -) 12.5 mg PO BID PRN PRN Reason: ANXIETY Last Admin: 05/09/18 11:41 Dose: 12.5 mg - Objective Vital Signs: Vital Signs Temperature 97.9 F 05/09/18 15:00 Pulse Rate 84 05/09/18 15:00 Respiratory Rate 20 05/09/18 15:00 Blood Pressure 125/59 L 05/09/18 15:00 O2 Sat by Pulse Oximetry (%) 97 05/09/18 09:00 Constitutional: Yes: No Distress, Calm Cardiovascular: Yes: Regular Rate and Rhythm Respiratory: Yes: Regular, On Nasal O2, Poor Air Entry Gastrointestinal: Yes: Normal Bowel Sounds, Soft Musculoskeletal: Yes: WNL Extremities: Yes: WNL Neurological: Yes: Alert, Oriented Psychiatric: Yes: Alert, Oriented Labs: CBC, BMP 05/09/18 05:30 05/09/18 06:00 INR, PTT INR 1.28 (0.83-1.09) H 05/07/18 06:25 Assessment/Plan Assessment/Plan (1) Sepsis Code(s): A41.9 - SEPSIS, UNSPECIFIED ORGANISM Qualifiers: Sepsis type: sepsis due to unspecified organism Qualified Code(s): A41.9 - Sepsis, unspecified organism (2) Pneumonia Code(s): J18.9 - PNEUMONIA, UNSPECIFIED ORGANISM Qualifiers: Pneumonia type: due to unspecified organism Laterality: right Lung location: lower lobe of lung Qualified Code(s): J18.1 - Lobar pneumonia, unspecified organism (3) Pleural effusion Code(s): J90 - PLEURAL EFFUSION, NOT ELSEWHERE CLASSIFIED (4) Metabolic encephalopathy Code(s): G93.41 - METABOLIC ENCEPHALOPATHY (5) Leukocytosis Code(s): D72.829 - ELEVATED WHITE BLOOD CELL COUNT, UNSPECIFIED (6) Hypokalemia Code(s): E87.6 - HYPOKALEMIA (7) Anemia Code(s): D64.9 - ANEMIA, UNSPECIFIED Qualifiers: Anemia type: unspecified type Qualified Code(s): D64.9 - Anemia, unspecified (8) Anxiety Code(s): F41.9 - ANXIETY DISORDER, UNSPECIFIED (9) COPD (chronic obstructive pulmonary disease) Code(s): J44.9 - CHRONIC OBSTRUCTIVE PULMONARY DISEASE, UNSPECIFIED Qualifiers: COPD type: chronic bronchitis (10) Abnormal CT of the chest Code(s): R93.89 - ABNORMAL FINDINGS ON DX IMAGING OF OTH BODY STRUCTURES (11) Tobacco dependence Code(s): F17.200 - NICOTINE DEPENDENCE, UNSPECIFIED, UNCOMPLICATED parapneumonic effusion plan continue current mgmt will stop vanco tomorrow await for final cx report rest as per the team
[2018-05-09] MEDS ORDERED: VANCOMYCIN 1,500 MG in DEXTROSE 5%-WATER - 500 ML IVPB SCH (16:00)
[2018-05-10] MEDS: PIPERACILLIN/TAZOB 4.5 GM 4.5 GM in DEXTROSE 5%-WATER 100 ML IVPB SCH ×3 (03:00→17:11)
[2018-05-10] MEDS ORDERED: PIPERACILLIN/TAZOBACTAM 4.5 GM VIAL IVPB ONE ×2 (03:19→16:50)
[2018-05-10] MEDS ORDERED: DEXTROSE 5%-WATER 100 ML IVPB ONE ×2 (03:19→16:50)
[2018-05-10] MEDS: clonazePAM 0.5 MG TABLET PO PRN (05:09)
[2018-05-10 07:10] LABS: BASO % 0.4 % (0-2.0); HEMATOCRIT 29.6 % (35.4-49); HEMOGLOBIN 9.4 GM/dL (11.7-16.9); LYMPH % 5.7 % (8-40); MCH 27.5 pg (25.7-33.7); MCHC 31.8 g/dl (32.0-35.9); MEAN CELL VOLUME 86.6 fl (80-96); MEAN PLT VOLUME 7.6 fl (7.5-11.1); MONO % 5.4 % (3.8-10.2); NEUT % 88.5 % (42.8-82.8); PLATELET COUNT 462 K/MM3 (134-434); RBC 3.42 M/mm3 (4.00-5.60); RDW 16.3 % (11.9-15.9); WHITE BLOOD COUNT 15.2 K/mm3 (4.0-10.0)
[2018-05-10 07:32] LABS: ANION GAP 7 MMOL/L (8-16); BLOOD UREA NITROGEN 12 mg/dL (7-18); CALCIUM 7.7 mg/dL (8.5-10.1); CHLORIDE 104 mmol/L (98-107); CO2 29 mmol/L (21-32); CREATININE 0.7 mg/dL (0.55-1.3); GLUCOSE,RANDOM 137 mg/dL (74-106); POTASSIUM 4.6 mmol/L (3.5-5.1); SODIUM 139 mmol/L (136-145)
[2018-05-10] MEDS: ALBUTEROL SO4 2.5/IPRATROPIUM 0.5 INH SOL 3 ML VIAL.NEB. NEB SCH ×4 (07:58→20:42)
[2018-05-10] MEDS: POTASSIUM CHLORIDE TABS 20 MEQ TABLET.ER (FP) PO SCH (09:16)
[2018-05-10] MEDS: ESCITALOPRAM OXALATE 10 MG TABLET (FP) PO SCH ×2 (09:16→21:51)
[2018-05-10] MEDS: guaiFENesin 600 MG TABLET.ER (FP) PO SCH ×2 (09:16→21:51)
[2018-05-10] MEDS: LACTOBACILLUS ACIDOPHILUS 1 TABLET PO SCH (09:16)
[2018-05-10] MEDS: NICOTINE 7 MG/24 HOURS TOPICAL PATCH TD SCH (09:17)
[2018-05-10] MEDS: ENOXAPARIN NA (PORCINE) 40 MG/0.4 ML DISP.SYRIN SQ SCH (09:17)
[2018-05-10] MEDS: methylPREDNISolone NA SUCC 40 MG/1 ML VIAL IVPUSH SCH ×2 (09:17→21:52)
[2018-05-10] MEDS: BUDESONIDE/FORMETEROL FUMARATE 160/4.5 mcg INHALER IH SCH ×2 (09:36→21:59)
--- NOTE | 2018-05-10 10:33 | PN ---
Progress Note (short form) - Note Progress Note: s: no cp palps dizzy; sob and cough less today o: Vital Signs Period Temp Pulse Resp BP Sys/Torres Pulse Ox Last 24 Hr 97.0 F-97.9 F 74-85 20-20 118-146/59-81 97 nad no jvd rrr s1s2 no mrg scattered rhonchi, nl eff aaox3 no le e/c/c abd nt nd pos bs no jaundice diaphoresis Current Medications Generic Name Dose Route Start Last Admin Trade Name Freq PRN Reason Stop Dose Admin Acetaminophen 650 mg 05/08/18 20:11 05/08/18 21:14 Tylenol - PO 650 mg Q4H PRN Administration PAIN LEVEL 1 - 3 Albuterol Sulfate 1 amp 05/08/18 20:11 Ventolin 0.083% Nebulizer Soln - NEB Q4H PRN SHORT OF BREATH/WHEEZING Albuterol/Ipratropium 1 amp 05/09/18 08:00 05/10/18 07:58 Duoneb - NEB 1 amp RQID [facility] Administration Budesonide/Formoterol Fumarate 2 puff 05/08/18 22:00 05/10/18 09:36 Symbicort 160/4.5mcg - IH 2 puff BID [facility] Administration Clonazepam 0.5 mg 05/08/18 20:11 05/10/18 05:09 Klonopin - PO 0.5 mg Q24H PRN Administration ANXIETY Enoxaparin Sodium 40 mg 05/09/18 10:00 05/10/18 09:17 Lovenox - SQ 40 mg DAILY [facility] Administration Escitalopram Oxalate 10 mg 05/09/18 10:00 05/10/18 09:16 Lexapro - PO 10 mg DAILY [facility] Administration Guaifenesin 600 mg 05/08/18 22:00 05/10/18 09:16 Mucinex - PO 600 mg BID [facility] Administration Piperacillin Sod/Tazobactam 100 mls @ 200 mls/hr 05/09/18 02:00 05/10/18 09: 18 Sod 4.5 gm/ Dextrose IVPB 200 mls/hr Q8H-IV [facility] Administration Protocol Vancomycin HCl 1,500 mg/ 500 mls @ 250 mls/hr 05/09/18 16:00 05/09/18 16:11 Dextrose IVPB 250 mls/hr Q24H [facility] Administration Protocol Lactobacillus Acidophilus 1 tab 05/09/18 10:00 05/10/18 09:16 Bacid - PO 1 tab DAILY [facility] Administration Methylprednisolone Sodium Succinate 40 mg 05/09/18 22:00 05/10/18 09:17 Solu-Medrol - IVPUSH 40 mg Q12H [facility] Administration Nicotine 7 mg 05/09/18 10:00 05/10/18 09:17 Nicoderm Patch - TD 7 mg DAILY [facility] Administration Potassium Chloride 40 meq 05/09/18 10:00 05/10/18 09:16 K-Dur - PO 40 meq DAILY [facility] Administration Quetiapine Fumarate 200 mg 05/08/18 22:00 05/09/18 21:42 Seroquel Xr - PO 200 mg HS [facility] Administration Quetiapine Fumarate 12.5 mg 05/09/18 11:16 05/09/18 11:41 Seroquel - PO 12.5 mg BID PRN Administration ANXIETY CBC, BMP 05/10/18 05:40 05/10/18 05:40 ct chest: bl pna, very small peric eff ecg: sr, nl intervals, irbbb echo 04/2018: tds, nl lv/rv, small peric eff, valves not mentioned a/p: 67 m hx anxiety, copd, smoking, here with malaise, uri sxs. pna: -abx per ID, sxs improving copd: -seems stable, inhalers per pulm tob use: -smoking cessation pericardial effusion: -small peric eff, no signs of tamponade. Repeat echo after acute issues resolved as outpt.
--- NOTE | 2018-05-10 11:21 | PN ---
Progress Note, Physician History of Present Illness: pulmonary alert,no distress,oob-chair comfortable. - Current Medication List Current Medications: Active Medications Acetaminophen (Tylenol -) 650 mg PO Q4H PRN PRN Reason: PAIN LEVEL 1 - 3 Last Admin: 05/08/18 21:14 Dose: 650 mg Albuterol Sulfate (Ventolin 0.083% Nebulizer Soln -) 1 amp NEB Q4H PRN PRN Reason: SHORT OF BREATH/WHEEZING Albuterol/Ipratropium (Duoneb -) 1 amp NEB RQID [facility] Last Admin: 05/10/18 07:58 Dose: 1 amp Budesonide/Formoterol Fumarate (Symbicort 160/4.5mcg -) 2 puff IH BID [facility] Last Admin: 05/10/18 09:36 Dose: 2 puff Clonazepam (Klonopin -) 0.5 mg PO Q24H PRN PRN Reason: ANXIETY Last Admin: 05/10/18 05:09 Dose: 0.5 mg Enoxaparin Sodium (Lovenox -) 40 mg SQ DAILY [facility] Last Admin: 05/10/18 09:17 Dose: 40 mg Escitalopram Oxalate (Lexapro -) 10 mg PO DAILY [facility] Last Admin: 05/10/18 09:16 Dose: 10 mg Guaifenesin (Mucinex -) 600 mg PO BID [facility] Last Admin: 05/10/18 09:16 Dose: 600 mg Piperacillin Sod/Tazobactam (Sod 4.5 gm/ Dextrose) 100 mls @ 200 mls/hr IVPB Q8H-IV [facility]; Protocol Last Admin: 05/10/18 09:18 Dose: 200 mls/hr Vancomycin HCl 1,500 mg/ (Dextrose) 500 mls @ 250 mls/hr IVPB Q24H [facility]; Protocol Last Admin: 05/09/18 16:11 Dose: 250 mls/hr Lactobacillus Acidophilus (Bacid -) 1 tab PO DAILY [facility] Last Admin: 05/10/18 09:16 Dose: 1 tab Methylprednisolone Sodium Succinate (Solu-Medrol -) 40 mg IVPUSH Q12H [facility] Last Admin: 05/10/18 09:17 Dose: 40 mg Nicotine (Nicoderm Patch -) 7 mg TD DAILY [facility] Last Admin: 05/10/18 09:17 Dose: 7 mg Potassium Chloride (K-Dur -) 40 meq PO DAILY [facility] Last Admin: 05/10/18 09:16 Dose: 40 meq Quetiapine Fumarate (Seroquel Xr -) 200 mg PO HS [facility] Last Admin: 05/09/18 21:42 Dose: 200 mg Quetiapine Fumarate (Seroquel -) 12.5 mg PO BID PRN PRN Reason: ANXIETY Last Admin: 05/09/18 11:41 Dose: 12.5 mg - Objective Vital Signs: Vital Signs Temperature 97.0 F L 05/10/18 05:48 Pulse Rate 74 05/10/18 05:48 Respiratory Rate 20 05/10/18 05:48 Blood Pressure 146/81 05/10/18 05:48 O2 Sat by Pulse Oximetry (%) 97 05/10/18 09:00 Constitutional: Yes: Well Nourished, Calm Eyes: Yes: WNL HENT: Yes: WNL Neck: Yes: WNL Cardiovascular: Yes: Regular Rate and Rhythm, S1, S2 Respiratory: Yes: Rhonchi (few rhonchi) Gastrointestinal: Yes: Normal Bowel Sounds, Soft Extremities: Yes: WNL Edema: No Labs: CBC, BMP 05/10/18 05:40 05/10/18 05:40 INR, PTT INR 1.28 (0.83-1.09) H 05/07/18 06:25 Assessment/Plan RLL INFILTRATE WITH ASSOCIATED PLEURAL EFFUSION CHEMISTRIES PENDING COPD PERICARDIAL EFFUSION TOBACCO ABUSE PLAN CONTINUE ANTIBIOTICS WOULD AVOID OVER SEDATION GIVEN UNDERLYING PSYCH HISTORY TITRATE O2 TO KEEP SAT >90% MEDROL CHECK PLEURAL FLUID CHEMISTRIES DR MUNSON Problem List - Problems (1) Pleural effusion associated with pulmonary infection Code(s): J18.9 - PNEUMONIA, UNSPECIFIED ORGANISM; J91.8 - PLEURAL EFFUSION IN OTHER CONDITIONS CLASSIFIED ELSEWHERE (2) Abnormal CT of the chest Code(s): R93.89 - ABNORMAL FINDINGS ON DX IMAGING OF OTH BODY STRUCTURES (3) Anemia Code(s): D64.9 - ANEMIA, UNSPECIFIED Qualifiers: Anemia type: unspecified type Qualified Code(s): D64.9 - Anemia, unspecified (4) Anxiety Code(s): F41.9 - ANXIETY DISORDER, UNSPECIFIED (5) COPD (chronic obstructive pulmonary disease) Code(s): J44.9 - CHRONIC OBSTRUCTIVE PULMONARY DISEASE, UNSPECIFIED Qualifiers: COPD type: chronic bronchitis (6) Pneumonia Code(s): J18.9 - PNEUMONIA, UNSPECIFIED ORGANISM Qualifiers: Pneumonia type: due to unspecified organism Laterality: right Lung location: lower lobe of lung Qualified Code(s): J18.1 - Lobar pneumonia, unspecified organism (7) Tobacco dependence Code(s): F17.200 - NICOTINE DEPENDENCE, UNSPECIFIED, UNCOMPLICATED (8) Vertigo Code(s): R42 - DIZZINESS AND GIDDINESS
--- NOTE | 2018-05-10 12:24 | PN ---
Progress Note, Physician Chief Complaint: Pt lying in bed in no acute distress. pt reports breathing improved. however states his anxiety is not controlled here, i informed him we have titrated the meds down to avoid increased lethargy/aspiration, pt reports understanding. new grad rn reports pt has been having diarrhea. Denies any chest pain, n/v - Current Medication List Current Medications: Active Medications Acetaminophen (Tylenol -) 650 mg PO Q4H PRN PRN Reason: PAIN LEVEL 1 - 3 Last Admin: 05/08/18 21:14 Dose: 650 mg Albuterol Sulfate (Ventolin 0.083% Nebulizer Soln -) 1 amp NEB Q4H PRN PRN Reason: SHORT OF BREATH/WHEEZING Albuterol/Ipratropium (Duoneb -) 1 amp NEB RQID [facility] Last Admin: 05/10/18 11:22 Dose: Not Given Budesonide/Formoterol Fumarate (Symbicort 160/4.5mcg -) 2 puff IH BID [facility] Last Admin: 05/10/18 09:36 Dose: 2 puff Clonazepam (Klonopin -) 0.5 mg PO Q24H PRN PRN Reason: ANXIETY Last Admin: 05/10/18 05:09 Dose: 0.5 mg Enoxaparin Sodium (Lovenox -) 40 mg SQ DAILY [facility] Last Admin: 05/10/18 09:17 Dose: 40 mg Escitalopram Oxalate (Lexapro -) 10 mg PO DAILY [facility] Last Admin: 05/10/18 09:16 Dose: 10 mg Guaifenesin (Mucinex -) 600 mg PO BID [facility] Last Admin: 05/10/18 09:16 Dose: 600 mg Piperacillin Sod/Tazobactam (Sod 4.5 gm/ Dextrose) 100 mls @ 200 mls/hr IVPB Q8H-IV [facility]; Protocol Last Admin: 05/10/18 09:18 Dose: 200 mls/hr Vancomycin HCl 1,500 mg/ (Dextrose) 500 mls @ 250 mls/hr IVPB Q24H [facility]; Protocol Last Admin: 05/09/18 16:11 Dose: 250 mls/hr Lactobacillus Acidophilus (Bacid -) 1 tab PO DAILY [facility] Last Admin: 05/10/18 09:16 Dose: 1 tab Methylprednisolone Sodium Succinate (Solu-Medrol -) 40 mg IVPUSH Q12H [facility] Last Admin: 05/10/18 09:17 Dose: 40 mg Nicotine (Nicoderm Patch -) 7 mg TD DAILY [facility] Last Admin: 05/10/18 09:17 Dose: 7 mg Potassium Chloride (K-Dur -) 40 meq PO DAILY [facility] Last Admin: 05/10/18 09:16 Dose: 40 meq Quetiapine Fumarate (Seroquel Xr -) 200 mg PO HS [facility] Last Admin: 05/09/18 21:42 Dose: 200 mg Quetiapine Fumarate (Seroquel -) 12.5 mg PO BID PRN PRN Reason: ANXIETY Last Admin: 05/09/18 11:41 Dose: 12.5 mg - Objective Vital Signs: Vital Signs Temperature 97.0 F L 05/10/18 05:48 Pulse Rate 74 05/10/18 05:48 Respiratory Rate 20 05/10/18 05:48 Blood Pressure 146/81 05/10/18 05:48 O2 Sat by Pulse Oximetry (%) 97 05/10/18 09:00 Constitutional: Yes: No Distress, Calm, Thin Cardiovascular: Yes: WNL, Regular Rate and Rhythm Respiratory: Yes: Regular, CTA Bilaterally, Diminished, On Nasal O2. No: Accessory Muscle Use, SOB, Tachypnea, Wheezes Gastrointestinal: Yes: WNL, Normal Bowel Sounds, Soft. No: Distention, Tenderness Genitourinary: Yes: WNL Extremities: Yes: WNL Edema: No Neurological: Yes: WNL, Alert, Oriented Psychiatric: Yes: WNL, Alert, Oriented Labs: CBC, BMP 05/10/18 05:40 05/10/18 05:40 INR, PTT INR 1.28 (0.83-1.09) H 05/07/18 06:25 Assessment/Plan (1) Sepsis Assessment/Plan: improved 2/2 CAP w/ parapneumonic effusion s/p thoracentesis Zosyn/Vanco day 7 ID following Code(s): A41.9 - SEPSIS, UNSPECIFIED ORGANISM Qualifiers: Sepsis type: sepsis due to unspecified organism Qualified Code(s): A41.9 - Sepsis, unspecified organism (2) Acute respiratory failure with hypoxia Assessment/Plan: improving O2 via NC iv medrol taper duonebs repeat chest xray pulm following Code(s): J96.01 - ACUTE RESPIRATORY FAILURE WITH HYPOXIA (3) Pneumonia Assessment/Plan: as above Code(s): J18.9 - PNEUMONIA, UNSPECIFIED ORGANISM Qualifiers: Pneumonia type: due to unspecified organism Laterality: right Lung location: lower lobe of lung Qualified Code(s): J18.1 - Lobar pneumonia, unspecified organism (4) Parapneumonic effusion Assessment/Plan: as above await culture/cytology Code(s): J18.9 - PNEUMONIA, UNSPECIFIED ORGANISM; J91.8 - PLEURAL EFFUSION IN OTHER CONDITIONS CLASSIFIED ELSEWHERE (5) Pericardial effusion Assessment/Plan: small evaluated by cardiology outpt f/u once clinically improved Code(s): I31.3 - PERICARDIAL EFFUSION (NONINFLAMMATORY) (6) COPD exacerbation Assessment/Plan: improving medrol taper nebs Code(s): J44.1 - CHRONIC OBSTRUCTIVE PULMONARY DISEASE W (ACUTE) EXACERBATION (7) Metabolic encephalopathy Assessment/Plan: resolved suspect 2/2 meds aspiration precautions speech eval- r/o aspiration Code(s): G93.41 - METABOLIC ENCEPHALOPATHY (8) Leukocytosis Assessment/Plan: as above Code(s): D72.829 - ELEVATED WHITE BLOOD CELL COUNT, UNSPECIFIED (9) Hypokalemia Assessment/Plan: resolved Code(s): E87.6 - HYPOKALEMIA (10) Anemia Assessment/Plan: anemia of chronic disease outpt hematology f/u Code(s): D64.9 - ANEMIA, UNSPECIFIED Qualifiers: Anemia type: unspecified type Qualified Code(s): D64.9 - Anemia, unspecified (11) Anxiety Assessment/Plan: continue home meds decreased klonopin will put pt back on lexapro bid to adequate control anxiety Code(s): F41.9 - ANXIETY DISORDER, UNSPECIFIED (12) COPD (chronic obstructive pulmonary disease) Assessment/Plan: acute on chronic, severe obstructive disease on PFTs 2016 spiriva/symbicort as above Code(s): J44.9 - CHRONIC OBSTRUCTIVE PULMONARY DISEASE, UNSPECIFIED Qualifiers: COPD type: chronic bronchitis (13) Abnormal CT of the chest Assessment/Plan: worsened CT findings since 04/22 fam hx of lung ca as above Code(s): R93.89 - ABNORMAL FINDINGS ON DX IMAGING OF OTH BODY STRUCTURES (14) Tobacco dependence Assessment/Plan: nicotine patch encourage cessation Code(s): F17.200 - NICOTINE DEPENDENCE, UNSPECIFIED, UNCOMPLICATED (15) Diarrhea Assessment/Plan: r/o infectious cdiff ordered monitor Code(s): R19.7 - DIARRHEA, UNSPECIFIED Dispo: SNF when cleared by CLAUDIA, pulm
--- NOTE | 2018-05-10 13:12 | PN ---
Progress Note, Physician History of Present Illness: patient stable no new issues - Current Medication List Current Medications: Active Medications Acetaminophen (Tylenol -) 650 mg PO Q4H PRN PRN Reason: PAIN LEVEL 1 - 3 Last Admin: 05/08/18 21:14 Dose: 650 mg Albuterol Sulfate (Ventolin 0.083% Nebulizer Soln -) 1 amp NEB Q4H PRN PRN Reason: SHORT OF BREATH/WHEEZING Albuterol/Ipratropium (Duoneb -) 1 amp NEB RQID [facility] Last Admin: 05/10/18 11:22 Dose: Not Given Budesonide/Formoterol Fumarate (Symbicort 160/4.5mcg -) 2 puff IH BID [facility] Last Admin: 05/10/18 09:36 Dose: 2 puff Clonazepam (Klonopin -) 0.5 mg PO TID PRN PRN Reason: ANXIETY Enoxaparin Sodium (Lovenox -) 40 mg SQ DAILY [facility] Last Admin: 05/10/18 09:17 Dose: 40 mg Escitalopram Oxalate (Lexapro -) 10 mg PO BID [facility] Guaifenesin (Mucinex -) 600 mg PO BID [facility] Last Admin: 05/10/18 09:16 Dose: 600 mg Piperacillin Sod/Tazobactam (Sod 4.5 gm/ Dextrose) 100 mls @ 200 mls/hr IVPB Q8H-IV [facility]; Protocol Last Admin: 05/10/18 09:18 Dose: 200 mls/hr Lactobacillus Acidophilus (Bacid -) 1 tab PO DAILY [facility] Last Admin: 05/10/18 09:16 Dose: 1 tab Methylprednisolone Sodium Succinate (Solu-Medrol -) 40 mg IVPUSH Q12H [facility] Last Admin: 05/10/18 09:17 Dose: 40 mg Nicotine (Nicoderm Patch -) 7 mg TD DAILY [facility] Last Admin: 05/10/18 09:17 Dose: 7 mg Quetiapine Fumarate (Seroquel Xr -) 200 mg PO HS [facility] Last Admin: 05/09/18 21:42 Dose: 200 mg Quetiapine Fumarate (Seroquel -) 12.5 mg PO BID PRN PRN Reason: ANXIETY Last Admin: 05/09/18 11:41 Dose: 12.5 mg - Objective Vital Signs: Vital Signs Temperature 97.0 F L 05/10/18 05:48 Pulse Rate 74 05/10/18 05:48 Respiratory Rate 20 05/10/18 05:48 Blood Pressure 146/81 05/10/18 05:48 O2 Sat by Pulse Oximetry (%) 97 05/10/18 09:00 Constitutional: Yes: No Distress, Calm Cardiovascular: Yes: Regular Rate and Rhythm Respiratory: Yes: Poor Air Entry Gastrointestinal: Yes: Normal Bowel Sounds, Soft Musculoskeletal: Yes: WNL Extremities: Yes: WNL Labs: CBC, BMP 05/10/18 05:40 05/10/18 05:40 INR, PTT INR 1.28 (0.83-1.09) H 05/07/18 06:25 Assessment/Plan Assessment/Plan (1) Sepsis Code(s): A41.9 - SEPSIS, UNSPECIFIED ORGANISM Qualifiers: Sepsis type: sepsis due to unspecified organism Qualified Code(s): A41.9 - Sepsis, unspecified organism (2) Pneumonia Code(s): J18.9 - PNEUMONIA, UNSPECIFIED ORGANISM Qualifiers: Pneumonia type: due to unspecified organism Laterality: right Lung location: lower lobe of lung Qualified Code(s): J18.1 - Lobar pneumonia, unspecified organism (3) Pleural effusion Code(s): J90 - PLEURAL EFFUSION, NOT ELSEWHERE CLASSIFIED (4) Metabolic encephalopathy Code(s): G93.41 - METABOLIC ENCEPHALOPATHY (5) Leukocytosis Code(s): D72.829 - ELEVATED WHITE BLOOD CELL COUNT, UNSPECIFIED (6) Hypokalemia Code(s): E87.6 - HYPOKALEMIA (7) Anemia Code(s): D64.9 - ANEMIA, UNSPECIFIED Qualifiers: Anemia type: unspecified type Qualified Code(s): D64.9 - Anemia, unspecified (8) Anxiety Code(s): F41.9 - ANXIETY DISORDER, UNSPECIFIED (9) COPD (chronic obstructive pulmonary disease) Code(s): J44.9 - CHRONIC OBSTRUCTIVE PULMONARY DISEASE, UNSPECIFIED Qualifiers: COPD type: chronic bronchitis (10) Abnormal CT of the chest Code(s): R93.89 - ABNORMAL FINDINGS ON DX IMAGING OF OTH BODY STRUCTURES (11) Tobacco dependence Code(s): F17.200 - NICOTINE DEPENDENCE, UNSPECIFIED, UNCOMPLICATED plan will stop vanco await for all final cx incentive sally rest as per the team
[2018-05-10 14:14] LABS: BODY FLUID ALBUMIN 1.4 g/dL (.)
[2018-05-10] MEDS: QUEtiapine FUMARATE 25 MG TABLET (FP) PO PRN (15:24)
--- NOTE | 2018-05-10 15:34 | PATH ---
Cytology Non-Gynecological Report Patient Name: JUANA ROBERSON Med. Rec. #: [id number] /Age/Gender: 1950 (Age: 67) / M Account: [id number] Location: 4 TELEMETRY U Taken: 05/09/2018 Received: 05/09/2018 Reported: 05/10/2018 Physicians: Arvind Callejas FNP Specimen(s) Received RIGHT PLEURAL FLUID Clinical History Right pleural effusion Final Diagnosis PLEURAL FLUID, THORACENTESIS: SATISFACTORY FOR EVALUATION NO MALIGNANT CELLS IDENTIFIED. REACTIVE MESOTHELIAL CELLS AND MIXED INFLAMMATORY CELLS (NEUTROPHILS, MACROPHAGES, AND LYMPHOCYTES) PRESENT. Electronically Signed Woodrow Catherine M.D. Gross Description Approximately 50cc of covarrubias fluid received fixed in 50% alcohol. One cytospin and one cellblock prepared.
[2018-05-10] MEDS ORDERED: PT OWN MED DRAWER 7, Y5N ONE (21:19)
[2018-05-11] MEDS ORDERED: PIPERACILLIN/TAZOBACTAM 4.5 GM VIAL IVPB ONE ×3 (01:50→16:49)
[2018-05-11] MEDS ORDERED: DEXTROSE 5%-WATER 100 ML IVPB ONE ×3 (01:51→16:50)
[2018-05-11] MEDS: PIPERACILLIN/TAZOB 4.5 GM 4.5 GM in DEXTROSE 5%-WATER 100 ML IVPB SCH ×3 (02:36→17:13)
[2018-05-11] MEDS: clonazePAM 0.5 MG TABLET PO PRN ×3 (02:42→21:00)
[2018-05-11 07:40] LABS: BASO % 0.1 % (0-2.0); HEMATOCRIT 30.5 % (35.4-49); HEMOGLOBIN 9.6 GM/dL (11.7-16.9); LYMPH % 6.9 % (8-40); MCH 27.2 pg (25.7-33.7); MCHC 31.5 g/dl (32.0-35.9); MEAN CELL VOLUME 86.4 fl (80-96); MEAN PLT VOLUME 7.2 fl (7.5-11.1); MONO % 6.5 % (3.8-10.2); NEUT % 86.5 % (42.8-82.8); PLATELET COUNT 457 K/MM3 (134-434); RBC 3.53 M/mm3 (4.00-5.60); RDW 16.3 % (11.9-15.9); WHITE BLOOD COUNT 15.1 K/mm3 (4.0-10.0)
[2018-05-11] MEDS: ALBUTEROL SO4 2.5/IPRATROPIUM 0.5 INH SOL 3 ML VIAL.NEB. NEB SCH ×4 (07:48→20:45)
[2018-05-11 08:16] LABS: ANION GAP 6 MMOL/L (8-16); BLOOD UREA NITROGEN 15 mg/dL (7-18); CALCIUM 7.8 mg/dL (8.5-10.1); CHLORIDE 102 mmol/L (98-107); CO2 28 mmol/L (21-32); CREATININE 0.7 mg/dL (0.55-1.3); GLUCOSE,RANDOM 119 mg/dL (74-106); POTASSIUM 4.3 mmol/L (3.5-5.1); SODIUM 136 mmol/L (136-145)
[2018-05-11] MEDS: LACTOBACILLUS ACIDOPHILUS 1 TABLET PO SCH (09:39)
[2018-05-11] MEDS: NICOTINE 7 MG/24 HOURS TOPICAL PATCH TD SCH (09:39)
[2018-05-11] MEDS: guaiFENesin 600 MG TABLET.ER (FP) PO SCH ×2 (09:40→21:00)
[2018-05-11] MEDS: methylPREDNISolone NA SUCC 40 MG/1 ML VIAL IVPUSH SCH (09:40)
[2018-05-11] MEDS: ENOXAPARIN NA (PORCINE) 40 MG/0.4 ML DISP.SYRIN SQ SCH (09:40)
[2018-05-11] MEDS: ESCITALOPRAM OXALATE 10 MG TABLET (FP) PO SCH ×2 (09:40→21:00)
[2018-05-11] MEDS: BUDESONIDE/FORMETEROL FUMARATE 160/4.5 mcg INHALER IH SCH ×2 (09:45→20:59)
--- NOTE | 2018-05-11 11:24 | PN ---
Progress Note, Physician History of Present Illness: No events overnight Feels a bit "woozy this AM" Tele: No tele No chest pains, palps, dyspnea - Current Medication List Current Medications: Active Medications Acetaminophen (Tylenol -) 650 mg PO Q4H PRN PRN Reason: PAIN LEVEL 1 - 3 Last Admin: 05/08/18 21:14 Dose: 650 mg Albuterol Sulfate (Ventolin 0.083% Nebulizer Soln -) 1 amp NEB Q4H PRN PRN Reason: SHORT OF BREATH/WHEEZING Albuterol/Ipratropium (Duoneb -) 1 amp NEB RQID [facility] Last Admin: 05/11/18 07:48 Dose: 1 amp Budesonide/Formoterol Fumarate (Symbicort 160/4.5mcg -) 2 puff IH BID [facility] Last Admin: 05/11/18 09:45 Dose: 2 puff Clonazepam (Klonopin -) 0.5 mg PO TID PRN PRN Reason: ANXIETY Last Admin: 05/11/18 02:42 Dose: 0.5 mg Enoxaparin Sodium (Lovenox -) 40 mg SQ DAILY [facility] Last Admin: 05/11/18 09:40 Dose: 40 mg Escitalopram Oxalate (Lexapro -) 10 mg PO BID [facility] Last Admin: 05/11/18 09:40 Dose: 10 mg Guaifenesin (Mucinex -) 600 mg PO BID [facility] Last Admin: 05/11/18 09:40 Dose: 600 mg Piperacillin Sod/Tazobactam (Sod 4.5 gm/ Dextrose) 100 mls @ 200 mls/hr IVPB Q8H-IV [facility]; Protocol Last Admin: 05/11/18 09:39 Dose: 200 mls/hr Lactobacillus Acidophilus (Bacid -) 1 tab PO DAILY [facility] Last Admin: 05/11/18 09:39 Dose: 1 tab Methylprednisolone Sodium Succinate (Solu-Medrol -) 40 mg IVPUSH Q12H [facility] Last Admin: 05/11/18 09:40 Dose: 40 mg Nicotine (Nicoderm Patch -) 7 mg TD DAILY [facility] Last Admin: 05/11/18 09:39 Dose: 7 mg Quetiapine Fumarate (Seroquel Xr -) 200 mg PO HS [facility] Last Admin: 05/10/18 21:51 Dose: 200 mg Quetiapine Fumarate (Seroquel -) 12.5 mg PO BID PRN PRN Reason: ANXIETY Last Admin: 05/10/18 15:24 Dose: 12.5 mg - Objective Vital Signs: Vital Signs Temperature 97.6 F 05/11/18 09:11 Pulse Rate 75 05/11/18 09:11 Respiratory Rate 18 05/11/18 09:11 Blood Pressure 121/62 05/11/18 09:11 O2 Sat by Pulse Oximetry (%) 97 05/10/18 21:00 Constitutional: Yes: No Distress, Calm Eyes: Yes: WNL HENT: Yes: WNL Neck: Yes: WNL Cardiovascular: Yes: Regular Rate and Rhythm Respiratory: Yes: Poor Air Entry Gastrointestinal: Yes: Normal Bowel Sounds Musculoskeletal: Yes: WNL Extremities: Yes: WNL Edema: No Labs: CBC, BMP 05/11/18 06:30 05/11/18 06:30 INR, PTT INR 1.28 (0.83-1.09) H 05/07/18 06:25 Assessment/Plan a/p: 67 m hx anxiety, copd, smoking, here with malaise, uri sxs. pna: -abx per ID, sxs improving pericardial effusion: -small peric eff, no signs of tamponade. Repeat echo after acute issues resolved as outpt.
--- NOTE | 2018-05-11 13:31 | PN ---
Progress Note (short form) - Note Progress Note: Overall feels like he is improving. No CP. Less SOB and cough. Afebrile. Intake & Output 05/08/18 05/09/18 05/10/18 05/11/18 23:59 23:59 23:59 23:59 Intake Total 2570 1020 120 100 Output Total 250 500 Balance 2570 770 120 -400 Last Vital Signs Temp Pulse Resp BP Pulse Ox 97.6 F 75 18 121/62 96 05/11/18 09:11 05/11/18 09:11 05/11/18 09:11 05/11/18 09:11 05/11/18 09:00 Active Medications Acetaminophen (Tylenol -) 650 mg PO Q4H PRN PRN Reason: PAIN LEVEL 1 - 3 Last Admin: 05/08/18 21:14 Dose: 650 mg Albuterol Sulfate (Ventolin 0.083% Nebulizer Soln -) 1 amp NEB Q4H PRN PRN Reason: SHORT OF BREATH/WHEEZING Albuterol/Ipratropium (Duoneb -) 1 amp NEB RQID [facility] Last Admin: 05/11/18 11:48 Dose: 1 amp Budesonide/Formoterol Fumarate (Symbicort 160/4.5mcg -) 2 puff IH BID [facility] Last Admin: 05/11/18 09:45 Dose: 2 puff Clonazepam (Klonopin -) 0.5 mg PO TID PRN PRN Reason: ANXIETY Last Admin: 05/11/18 02:42 Dose: 0.5 mg Enoxaparin Sodium (Lovenox -) 40 mg SQ DAILY [facility] Last Admin: 05/11/18 09:40 Dose: 40 mg Escitalopram Oxalate (Lexapro -) 10 mg PO BID [facility] Last Admin: 05/11/18 09:40 Dose: 10 mg Guaifenesin (Mucinex -) 600 mg PO BID [facility] Last Admin: 05/11/18 09:40 Dose: 600 mg Piperacillin Sod/Tazobactam (Sod 4.5 gm/ Dextrose) 100 mls @ 200 mls/hr IVPB Q8H-IV [facility]; Protocol Last Admin: 05/11/18 09:39 Dose: 200 mls/hr Lactobacillus Acidophilus (Bacid -) 1 tab PO DAILY [facility] Last Admin: 05/11/18 09:39 Dose: 1 tab Methylprednisolone Sodium Succinate (Solu-Medrol -) 40 mg IVPUSH Q12H [facility] Last Admin: 05/11/18 09:40 Dose: 40 mg Nicotine (Nicoderm Patch -) 7 mg TD DAILY [facility] Last Admin: 05/11/18 09:39 Dose: 7 mg Quetiapine Fumarate (Seroquel Xr -) 200 mg PO HS [facility] Last Admin: 05/10/18 21:51 Dose: 200 mg Quetiapine Fumarate (Seroquel -) 12.5 mg PO BID PRN PRN Reason: ANXIETY Last Admin: 05/10/18 15:24 Dose: 12.5 mg Constitutional: Yes: Well Nourished, NAD Eyes: Yes: WNL HENT: Yes: WNL Neck: Yes: WNL Cardiovascular: Yes: Regular Rate and Rhythm, S1, S2 Respiratory: Yes: few scattered rhonchi, no wheeze Gastrointestinal: Yes: Normal Bowel Sounds, Soft Extremities: Yes: WNL Edema: No Labs: Laboratory Results - last 24 hr 05/08/18 05/11/18 05/11/18 13:00 06:30 06:30 WBC 15.1 H RBC 3.53 L Hgb 9.6 L Hct 30.5 L MCV 86.4 MCH 27.2 MCHC 31.5 L RDW 16.3 H Plt Count 457 H MPV 7.2 L Absolute Neuts (auto) 13.1 H Neutrophils % 86.5 H Lymphocytes % 6.9 L D Monocytes % 6.5 Eosinophils % 0.0 Basophils % 0.1 Nucleated RBC % 0 Sodium 136 Potassium 4.3 Chloride 102 Carbon Dioxide 28 Anion Gap 6 L BUN 15 Creatinine 0.7 Creat Clearance w eGFR > 60 Random Glucose 119 H Calcium 7.8 L POC Fluid pH 7.5 Fluid Total Protein 3.6 Fluid Albumin 1.4 Body Fluid LDH Source 827 Fluid Amylase 13 Fluid Triglycerides 63 Fluid Uric Acid 1.6 Problem List - Problems (1) Pleural effusion associated with pulmonary infection Code(s): J18.9 - PNEUMONIA, UNSPECIFIED ORGANISM; J91.8 - PLEURAL EFFUSION IN OTHER CONDITIONS CLASSIFIED ELSEWHERE (2) Abnormal CT of the chest Code(s): R93.89 - ABNORMAL FINDINGS ON DX IMAGING OF OTH BODY STRUCTURES (3) Anemia Code(s): D64.9 - ANEMIA, UNSPECIFIED Qualifiers: Anemia type: unspecified type Qualified Code(s): D64.9 - Anemia, unspecified (4) Anxiety Code(s): F41.9 - ANXIETY DISORDER, UNSPECIFIED (5) COPD (chronic obstructive pulmonary disease) Code(s): J44.9 - CHRONIC OBSTRUCTIVE PULMONARY DISEASE, UNSPECIFIED Qualifiers: COPD type: chronic bronchitis (6) Pneumonia Code(s): J18.9 - PNEUMONIA, UNSPECIFIED ORGANISM Qualifiers: Pneumonia type: due to unspecified organism Laterality: right Lung location: lower lobe of lung Qualified Code(s): J18.1 - Lobar pneumonia, unspecified organism (7) Tobacco dependence Code(s): F17.200 - NICOTINE DEPENDENCE, UNSPECIFIED, UNCOMPLICATED (8) Vertigo Code(s): R42 - DIZZINESS AND GIDDINESS Assessment/Plan RLL INFILTRATE WITH ASSOCIATED EXUDATIVE PLEURAL EFFUSION COPD PERICARDIAL EFFUSION TOBACCO ABUSE PLAN CONTINUE ANTIBIOTICS PER ID SUPPLEMENTAL O2 TO MAINTAIN SATURATION CAN CHANGE MEDROL TO PREDNISONE FOLLOW FINAL CULTURES BD TX PRN NO SMOKING DR LUNDY
[2018-05-11] MEDS: QUEtiapine FUMARATE 25 MG TABLET (FP) PO PRN (13:38)
--- NOTE | 2018-05-11 13:43 | PN ---
Physical Exam: SUBJECTIVE: Patient seen and examined, breathing improved, anxious but no complaints. OBJECTIVE: Vital Signs Period Temp Pulse Resp BP Sys/Torres Pulse Ox Last 24 Hr 97.0 F-98.2 F 74-80 18-20 119-157/62-88 96-97 GENERAL: The patient is awake, alert, and fully oriented, in no acute distress, anxious. HEAD: Normal with no signs of trauma. EYES: PERRL, extraocular movements intact, sclera anicteric, conjunctiva clear. No ptosis. ENT: oral thrush NECK: Trachea midline, full range of motion, supple. LUNGS: right basilar rales, decreased breath sounds left HEART: Regular rate and rhythm, S1, S2 ABDOMEN: Soft, nontender, nondistended, normoactive bowel sounds, no guarding, no rebound EXTREMITIES: 2+ pulses, warm, well-perfused, no edema. NEUROLOGICAL: Cranial nerves II through XII grossly intact. Normal speech, gait not observed. PSYCH: Normal mood, normal affect. SKIN: Warm, dry, normal turgor, no rashes or lesions noted Laboratory Results - last 24 hr 05/08/18 05/11/18 05/11/18 13:00 06:30 06:30 WBC 15.1 H RBC 3.53 L Hgb 9.6 L Hct 30.5 L MCV 86.4 MCH 27.2 MCHC 31.5 L RDW 16.3 H Plt Count 457 H MPV 7.2 L Absolute Neuts (auto) 13.1 H Neutrophils % 86.5 H Lymphocytes % 6.9 L D Monocytes % 6.5 Eosinophils % 0.0 Basophils % 0.1 Nucleated RBC % 0 Sodium 136 Potassium 4.3 Chloride 102 Carbon Dioxide 28 Anion Gap 6 L BUN 15 Creatinine 0.7 Creat Clearance w eGFR > 60 Random Glucose 119 H Calcium 7.8 L POC Fluid pH 7.5 Fluid Total Protein 3.6 Fluid Albumin 1.4 Body Fluid LDH Source 827 Fluid Amylase 13 Fluid Triglycerides 63 Fluid Uric Acid 1.6 Active Medications Generic Name Dose Route Start Last Admin Trade Name Freq PRN Reason Stop Dose Admin Acetaminophen 650 mg 05/08/18 20:11 05/08/18 21:14 Tylenol - PO 650 mg Q4H PRN Administration PAIN LEVEL 1 - 3 Albuterol Sulfate 1 amp 05/08/18 20:11 Ventolin 0.083% Nebulizer Soln - NEB Q4H PRN SHORT OF BREATH/WHEEZING Albuterol/Ipratropium 1 amp 05/09/18 08:00 05/11/18 11:48 Duoneb - NEB 1 amp RQID [facility] Administration Budesonide/Formoterol Fumarate 2 puff 05/08/18 22:00 05/11/18 09:45 Symbicort 160/4.5mcg - IH 2 puff BID [facility] Administration Clonazepam 0.5 mg 05/10/18 12:42 05/11/18 02:42 Klonopin - PO 0.5 mg TID PRN Administration ANXIETY Enoxaparin Sodium 40 mg 05/09/18 10:00 05/11/18 09:40 Lovenox - SQ 40 mg DAILY [facility] Administration Escitalopram Oxalate 10 mg 05/10/18 22:00 05/11/18 09:40 Lexapro - PO 10 mg BID [facility] Administration Guaifenesin 600 mg 05/08/18 22:00 05/11/18 09:40 Mucinex - PO 600 mg BID [facility] Administration Piperacillin Sod/Tazobactam 100 mls @ 200 mls/hr 05/09/18 02:00 05/11/18 09: 39 Sod 4.5 gm/ Dextrose IVPB 200 mls/hr Q8H-IV [facility] Administration Protocol Lactobacillus Acidophilus 1 tab 05/09/18 10:00 05/11/18 09:39 Bacid - PO 1 tab DAILY [facility] Administration Nicotine 7 mg 05/09/18 10:00 05/11/18 09:39 Nicoderm Patch - TD 7 mg DAILY [facility] Administration Quetiapine Fumarate 200 mg 05/08/18 22:00 05/10/18 21:51 Seroquel Xr - PO 200 mg HS [facility] Administration Quetiapine Fumarate 12.5 mg 05/09/18 11:16 05/11/18 13:38 Seroquel - PO 12.5 mg BID PRN Administration ANXIETY Microbiology 05/11/18 09:00 Stool Clostridium difficile Antigen ([facility]) - Preliminary 05/11/18 09:00 Stool Clostridium difficile Toxin Assay - Preliminary 05/08/18 13:00 Pleural Fluid AFB Smear Concentration - Final 05/08/18 13:00 Pleural Fluid Mycobacterial Culture - Preliminary 05/08/18 13:00 Pleural Fluid Gram Stain - Final 05/08/18 13:00 Pleural Fluid Body Fluid Culture - Final NO GROWTH OF AEROBIC ORGANISMS AFTER 48 HOURS INCUBATION 05/08/18 13:00 Pleural Fluid Anaerobic Culture - Final NO ANAEROBES WERE ISOLATED 05/08/18 13:00 Pleural Fluid MAYRA Preparation - Preliminary 05/08/18 13:00 Pleural Fluid Fungal Culture - Preliminary 05/02/18 13:48 Blood - Peripheral Venous Blood Culture - Final NO GROWTH AFTER 5 DAYS INCUBATION 05/02/18 13:37 Blood - Peripheral Venous Blood Culture - Final NO GROWTH AFTER 5 DAYS INCUBATION 05/06/18 16:30 Urine For Antigen Detection Legionella Antigen - Final 05/06/18 16:30 Urine For Antigen Detection Streptococcus pneumoniae Antigen (M - Final 05/02/18 09:10 Urine - Urine Clean Catch Urine Culture - Final NO GROWTH OBTAINED ASSESSMENT/PLAN: 67 yom with PMHx of anxiety disorder, panic attacks, COPD admitted with multifocal CAP with parapneumonic effusion, COPD exacerbation. -Multifocal CAP with parapneumonic effusion -Acute COPD exacerbation -Generalized anxiety disorder Plan: Zosyn (antibiotic day 8). s/p Right thoracocentesis. Cultures neg so far. Repeat CXR Discuss with ID for abx taper Assess oxygen needs on d/c. Continue seroquel/lexapro. Clonazepm decreased Change to PO prednisone. Dispo plan for d/c to [facility] tomorrow if improves pending ID recs on PO abx. Discussed with patient, nursing and CM, all questions answered. Visit type - Emergency Visit Emergency Visit: Yes ED Registration Date: 05/02/18 Care time: The patient presented to the Emergency Department on the above date and was hospitalized for further evaluation of their emergent condition. - New Patient This patient is new to me today: Yes Date on this admission: 05/11/18 - Critical Care Critical Care patient: No - Discharge Referral Referred to [facility] Med P.C.: No
--- NOTE | 2018-05-11 14:35 | PN ---
Progress Note, Physician History of Present Illness: Pt seen and examined. Events noted. He is currently alert, slightly anxious but states he feels better. O2 Sat 95% on RA. Still with some cough with deep inspiration but not short of breath. Remains afebrile, without any other specific complaints currently. - Current Medication List Current Medications: Active Medications Acetaminophen (Tylenol -) 650 mg PO Q4H PRN PRN Reason: PAIN LEVEL 1 - 3 Last Admin: 05/08/18 21:14 Dose: 650 mg Albuterol Sulfate (Ventolin 0.083% Nebulizer Soln -) 1 amp NEB Q4H PRN PRN Reason: SHORT OF BREATH/WHEEZING Albuterol/Ipratropium (Duoneb -) 1 amp NEB RQID [facility] Last Admin: 05/11/18 11:48 Dose: 1 amp Budesonide/Formoterol Fumarate (Symbicort 160/4.5mcg -) 2 puff IH BID [facility] Last Admin: 05/11/18 09:45 Dose: 2 puff Clonazepam (Klonopin -) 0.5 mg PO TID PRN PRN Reason: ANXIETY Last Admin: 05/11/18 14:12 Dose: 0.5 mg Enoxaparin Sodium (Lovenox -) 40 mg SQ DAILY [facility] Last Admin: 05/11/18 09:40 Dose: 40 mg Escitalopram Oxalate (Lexapro -) 10 mg PO BID [facility] Last Admin: 05/11/18 09:40 Dose: 10 mg Guaifenesin (Mucinex -) 600 mg PO BID [facility] Last Admin: 05/11/18 09:40 Dose: 600 mg Piperacillin Sod/Tazobactam (Sod 4.5 gm/ Dextrose) 100 mls @ 200 mls/hr IVPB Q8H-IV [facility]; Protocol Last Admin: 05/11/18 09:39 Dose: 200 mls/hr Lactobacillus Acidophilus (Bacid -) 1 tab PO DAILY [facility] Last Admin: 05/11/18 09:39 Dose: 1 tab Nicotine (Nicoderm Patch -) 7 mg TD DAILY [facility] Last Admin: 05/11/18 09:39 Dose: 7 mg Nystatin (Nystatin Oral Suspension -) 500,000 units PO Q6HPO [facility] Prednisone (Deltasone -) 40 mg PO DAILY [facility] Quetiapine Fumarate (Seroquel Xr -) 200 mg PO HS [facility] Last Admin: 05/10/18 21:51 Dose: 200 mg Quetiapine Fumarate (Seroquel -) 12.5 mg PO BID PRN PRN Reason: ANXIETY Last Admin: 05/11/18 13:38 Dose: 12.5 mg - Objective Vital Signs: Vital Signs Temperature 97.6 F 05/11/18 09:11 Pulse Rate 75 05/11/18 09:11 Respiratory Rate 18 05/11/18 09:11 Blood Pressure 121/62 05/11/18 09:11 O2 Sat by Pulse Oximetry (%) 96 05/11/18 09:00 Constitutional: Yes: No Distress Eyes: Yes: Conjunctiva Clear Cardiovascular: Yes: Regular Rate and Rhythm Respiratory: Yes: Diminished (slightly, bilaterally) Gastrointestinal: Yes: Normal Bowel Sounds, Soft Genitourinary: Yes: WNL Extremities: Yes: WNL Integumentary: Yes: WNL Neurological: Yes: Alert, Oriented Labs: CBC, BMP 05/11/18 06:30 05/11/18 06:30 INR, PTT INR 1.28 (0.83-1.09) H 05/07/18 06:25 Microbiology 05/11/18 09:00 Stool Clostridium difficile Antigen ([facility]) - Preliminary 05/11/18 09:00 Stool Clostridium difficile Toxin Assay - Preliminary 05/08/18 13:00 Pleural Fluid AFB Smear Concentration - Final 05/08/18 13:00 Pleural Fluid Mycobacterial Culture - Preliminary 05/08/18 13:00 Pleural Fluid Gram Stain - Final 05/08/18 13:00 Pleural Fluid Body Fluid Culture - Final NO GROWTH OF AEROBIC ORGANISMS AFTER 48 HOURS INCUBATION 05/08/18 13:00 Pleural Fluid Anaerobic Culture - Final NO ANAEROBES WERE ISOLATED 05/08/18 13:00 Pleural Fluid MAYRA Preparation - Preliminary 05/08/18 13:00 Pleural Fluid Fungal Culture - Preliminary 05/02/18 13:48 Blood - Peripheral Venous Blood Culture - Final NO GROWTH AFTER 5 DAYS INCUBATION 05/02/18 13:37 Blood - Peripheral Venous Blood Culture - Final NO GROWTH AFTER 5 DAYS INCUBATION 05/06/18 16:30 Urine For Antigen Detection Legionella Antigen - Final 05/06/18 16:30 Urine For Antigen Detection Streptococcus pneumoniae Antigen (M - Final 05/02/18 09:10 Urine - Urine Clean Catch Urine Culture - Final NO GROWTH OBTAINED Problem List - Problems (1) Anxiety Code(s): F41.9 - ANXIETY DISORDER, UNSPECIFIED (2) COPD exacerbation Code(s): J44.1 - CHRONIC OBSTRUCTIVE PULMONARY DISEASE W (ACUTE) EXACERBATION (3) Parapneumonic effusion Code(s): J18.9 - PNEUMONIA, UNSPECIFIED ORGANISM; J91.8 - PLEURAL EFFUSION IN OTHER CONDITIONS CLASSIFIED ELSEWHERE (4) Pneumonia Code(s): J18.9 - PNEUMONIA, UNSPECIFIED ORGANISM Qualifiers: Pneumonia type: due to unspecified organism Laterality: right Lung location: lower lobe of lung Qualified Code(s): J18.1 - Lobar pneumonia, unspecified organism Assessment/Plan Pt currently afebrile, reports improvement in SOB, with minimal cough -- suggest switch to Augmentin 875 mg BID x 2 days starting tomorrow -- Follow up Pleural fluid fungal cultures continue monitor d/w Hospitalist
[2018-05-11] MEDS: NYSTATIN 500,000 UNITS/5 ML SUSPENSION PO SCH (17:11)
[2018-05-12] MEDS ORDERED: PIPERACILLIN/TAZOBACTAM 4.5 GM VIAL IVPB ONE ×2 (02:03→09:37)
[2018-05-12] MEDS ORDERED: DEXTROSE 5%-WATER 100 ML IVPB ONE ×2 (02:03→09:37)
[2018-05-12] MEDS: PIPERACILLIN/TAZOB 4.5 GM 4.5 GM in DEXTROSE 5%-WATER 100 ML IVPB SCH ×2 (02:59→09:56)
[2018-05-12] MEDS: clonazePAM 0.5 MG TABLET PO PRN ×2 (06:35→12:12)
[2018-05-12] MEDS: QUEtiapine FUMARATE 25 MG TABLET (FP) PO PRN (06:35)
[2018-05-12] MEDS: NYSTATIN 500,000 UNITS/5 ML SUSPENSION PO SCH ×3 (06:35→12:12)
[2018-05-12] MEDS: ALBUTEROL SO4 2.5/IPRATROPIUM 0.5 INH SOL 3 ML VIAL.NEB. NEB SCH ×2 (07:41→11:55)
[2018-05-12] MEDS: guaiFENesin 600 MG TABLET.ER (FP) PO SCH (09:56)
[2018-05-12] MEDS: ENOXAPARIN NA (PORCINE) 40 MG/0.4 ML DISP.SYRIN SQ SCH (09:56)
[2018-05-12] MEDS: NICOTINE 7 MG/24 HOURS TOPICAL PATCH TD SCH (09:56)
[2018-05-12] MEDS: LACTOBACILLUS ACIDOPHILUS 1 TABLET PO SCH (09:56)
[2018-05-12] MEDS: ESCITALOPRAM OXALATE 10 MG TABLET (FP) PO SCH (09:56)
[2018-05-12] MEDS: BUDESONIDE/FORMETEROL FUMARATE 160/4.5 mcg INHALER IH SCH (09:57)
[2018-05-12] MEDS ORDERED: predniSONE 20 MG TABLET (UD) PO SCH (10:00)
--- NOTE | 2018-05-12 10:11 | PN ---
Progress Note, Physician History of Present Illness: No CV complaints No Tele - Current Medication List Current Medications: Active Medications Acetaminophen (Tylenol -) 650 mg PO Q4H PRN PRN Reason: PAIN LEVEL 1 - 3 Last Admin: 05/08/18 21:14 Dose: 650 mg Albuterol Sulfate (Ventolin 0.083% Nebulizer Soln -) 1 amp NEB Q4H PRN PRN Reason: SHORT OF BREATH/WHEEZING Albuterol/Ipratropium (Duoneb -) 1 amp NEB RQID [facility] Last Admin: 05/12/18 07:41 Dose: 1 amp Budesonide/Formoterol Fumarate (Symbicort 160/4.5mcg -) 2 puff IH BID [facility] Last Admin: 05/12/18 09:57 Dose: 2 puff Clonazepam (Klonopin -) 0.5 mg PO TID PRN PRN Reason: ANXIETY Last Admin: 05/12/18 06:35 Dose: 0.5 mg Enoxaparin Sodium (Lovenox -) 40 mg SQ DAILY [facility] Last Admin: 05/12/18 09:56 Dose: 40 mg Escitalopram Oxalate (Lexapro -) 10 mg PO BID [facility] Last Admin: 05/12/18 09:56 Dose: 10 mg Guaifenesin (Mucinex -) 600 mg PO BID [facility] Last Admin: 05/12/18 09:56 Dose: 600 mg Piperacillin Sod/Tazobactam (Sod 4.5 gm/ Dextrose) 100 mls @ 200 mls/hr IVPB Q8H-IV [facility]; Protocol Last Admin: 05/12/18 09:56 Dose: 200 mls/hr Lactobacillus Acidophilus (Bacid -) 1 tab PO DAILY [facility] Last Admin: 05/12/18 09:56 Dose: 1 tab Nicotine (Nicoderm Patch -) 7 mg TD DAILY [facility] Last Admin: 05/12/18 09:56 Dose: 7 mg Nystatin (Nystatin Oral Suspension -) 500,000 units PO Q6HPO [facility] Last Admin: 05/12/18 06:35 Dose: 500,000 units Prednisone (Deltasone -) 40 mg PO DAILY [facility] Last Admin: 05/12/18 09:56 Dose: 40 mg Quetiapine Fumarate (Seroquel Xr -) 200 mg PO HS [facility] Last Admin: 05/11/18 21:01 Dose: 200 mg Quetiapine Fumarate (Seroquel -) 12.5 mg PO BID PRN PRN Reason: ANXIETY Last Admin: 05/12/18 06:35 Dose: 12.5 mg - Objective Vital Signs: Vital Signs Temperature 98.0 F 05/12/18 02:05 Pulse Rate 76 05/12/18 06:00 Respiratory Rate 18 05/12/18 06:00 Blood Pressure 140/99 05/12/18 06:00 O2 Sat by Pulse Oximetry (%) 97 05/11/18 21:00 Constitutional: Yes: No Distress Eyes: Yes: WNL HENT: Yes: WNL Neck: Yes: WNL Cardiovascular: Yes: Regular Rate and Rhythm Respiratory: Yes: Poor Air Entry Gastrointestinal: Yes: Normal Bowel Sounds Musculoskeletal: Yes: WNL Extremities: Yes: WNL Edema: No Labs: CBC, BMP 05/11/18 06:30 05/11/18 06:30 INR, PTT INR 1.28 (0.83-1.09) H 05/07/18 06:25 Assessment/Plan a/p: 67 m hx anxiety, copd, smoking, here with malaise, uri sxs. pna: -abx per ID, sxs improving pericardial effusion: -small peric eff, no signs of tamponade. Repeat echo after acute issues resolved as outpt. 05/12: No events; Continue above supportive care
--- NOTE | 2018-05-12 10:17 | DS ---
Physical Exam: SUBJECTIVE: Patient seen and examined, no dyspnea or wheezing, overall feels better. OBJECTIVE: Vital Signs Period Temp Pulse Resp BP Sys/Torres Pulse Ox Last 24 Hr 98 F-98.8 F 50-100 18-18 112-140/69-99 97-97 PHYSICAL EXAM GENERAL: The patient is awake, alert, and fully oriented, in no acute distress, anxious. HEAD: Normal with no signs of trauma. EYES: PERRL, extraocular movements intact, sclera anicteric, conjunctiva clear. No ptosis. ENT: oral thrush NECK: Trachea midline, full range of motion, supple. LUNGS: right basilar rales, decreased breath sounds left HEART: Regular rate and rhythm, S1, S2 ABDOMEN: Soft, nontender, nondistended, normoactive bowel sounds, no guarding, no rebound EXTREMITIES: 2+ pulses, warm, well-perfused, no edema. NEUROLOGICAL: Cranial nerves II through XII grossly intact. Normal speech, gait not observed. PSYCH: Normal mood, normal affect. SKIN: Warm, dry, normal turgor, no rashes or lesions noted LABS Laboratory Results - last 24 hr 05/08/18 13:00 Fluid Osmolality 301 Laboratory Tests 05/02/18 05/02/18 05/02/18 09:10 13:37 13:37 WBC RBC Hgb Hct MCV MCH MCHC RDW Plt Count MPV Absolute Neuts (auto) Neutrophils % Neutrophils % (Manual) Band Neutrophils % Lymphocytes % Lymphocytes % (Manual) Monocytes % Monocytes % (Manual) Eosinophils % Eosinophils % (Manual) Basophils % Basophils % (Manual) Myelocytes % (Man) Promyelocytes % (Man) Blast Cells % (Manual) Nucleated RBC % Metamyelocytes Hypochromia Platelet Estimate Polychromasia Poikilocytosis Anisocytosis Microcytosis Macrocytosis Target Cells Ovalocytes Stomatocytes Schistocytes Retic Count PT with INR INR Anticoagulation Therapy Puncture Site ABG pH ABG pCO2 at Pt Temp ABG pO2 at Pt Temp ABG HCO3 ABG O2 Sat (Measured) ABG O2 Content ABG Base Excess Roderick Test O2 Delivery Device Oxygen Flow Rate Vent Mode Vent Rate Mechanical Rate Pressure Support Vent Sodium Potassium Chloride Carbon Dioxide Anion Gap BUN Creatinine Creat Clearance w eGFR Random Glucose Lactic Acid 1.3 Calcium Phosphorus Magnesium Iron TIBC Iron Saturation Ferritin Total Bilirubin AST ALT Alkaline Phosphatase Troponin I Total Protein Albumin Vitamin B12 Serum Folate Urine Color Yellow Urine Appearance Clear Urine pH 6.0 Ur Specific [place] 1.028 Urine Protein Negative Urine Glucose (UA) Negative Urine Ketones Trace H Urine Blood Negative Urine Nitrite Negative Urine Bilirubin Negative Urine Urobilinogen 4.0 e.u/dl Ur Leukocyte Esterase Negative Fluid Source Fluid Osmolality POC Fluid pH Fluid WBC Fluid RBC Fluid Neutrophils Fluid Lymphocytes Fluid Other Cells Fluid Total Protein Fluid Albumin Body Fluid LDH Source Fluid Amylase Fluid Triglycerides Fluid Uric Acid Pleural Monocytes Pleural Eosinophils Pleural Basophils Pleural Plasma Cells Pleural Histocytes Pleural Macrophages Pleural Mesothelial Pleural Diff Comment Stool Occult Blood Vancomycin Pre-Dose Influenza A (Rapid) Negative Influenza B (Rapid) Negative 05/02/18 05/02/18 05/02/18 13:48 13:48 20:30 WBC 14.0 H RBC 3.22 L Hgb 9.2 L Hct 27.7 L D MCV 85.9 MCH 28.6 D MCHC 33.3 RDW 15.3 Plt Count 287 D MPV 7.6 D Absolute Neuts (auto) 12.0 H Neutrophils % 85.7 H Neutrophils % (Manual) Band Neutrophils % Lymphocytes % 6.2 L D Lymphocytes % (Manual) Monocytes % 6.9 Monocytes % (Manual) Eosinophils % 0.1 D Eosinophils % (Manual) Basophils % 1.1 Basophils % (Manual) Myelocytes % (Man) Promyelocytes % (Man) Blast Cells % (Manual) Nucleated RBC % 0 Metamyelocytes Hypochromia Platelet Estimate Polychromasia Poikilocytosis Anisocytosis Microcytosis Macrocytosis Target Cells Ovalocytes Stomatocytes Schistocytes Retic Count PT with INR INR Anticoagulation Therapy Puncture Site ABG pH ABG pCO2 at Pt Temp ABG pO2 at Pt Temp ABG HCO3 ABG O2 Sat (Measured) ABG O2 Content ABG Base Excess Roderick Test O2 Delivery Device Oxygen Flow Rate Vent Mode Vent Rate Mechanical Rate Pressure Support Vent Sodium 134 L Potassium 3.3 L Chloride 98 Carbon Dioxide 27 Anion Gap 9 BUN 10 Creatinine 0.7 Creat Clearance w eGFR > 60 Random Glucose 99 Lactic Acid 1.8 Calcium 7.6 L Phosphorus Magnesium 2.2 Iron TIBC Iron Saturation Ferritin Total Bilirubin 0.4 AST 46 H ALT 43 Alkaline Phosphatase 96 Troponin I < 0.02 Total Protein 6.8 Albumin 2.4 L Vitamin B12 Serum Folate Urine Color Urine Appearance Urine pH Ur Specific [place] Urine Protein Urine Glucose (UA) Urine Ketones Urine Blood Urine Nitrite Urine Bilirubin Urine Urobilinogen Ur Leukocyte Esterase Fluid Source Fluid Osmolality POC Fluid pH Fluid WBC Fluid RBC Fluid Neutrophils Fluid Lymphocytes Fluid Other Cells Fluid Total Protein Fluid Albumin Body Fluid LDH Source Fluid Amylase Fluid Triglycerides Fluid Uric Acid Pleural Monocytes Pleural Eosinophils Pleural Basophils Pleural Plasma Cells Pleural Histocytes Pleural Macrophages Pleural Mesothelial Pleural Diff Comment Stool Occult Blood Vancomycin Pre-Dose Influenza A (Rapid) Influenza B (Rapid) 05/02/18 05/03/18 05/03/18 21:52 06:00 06:00 WBC RBC Hgb Hct MCV MCH MCHC RDW Plt Count MPV Absolute Neuts (auto) Neutrophils % Neutrophils % (Manual) Band Neutrophils % Lymphocytes % Lymphocytes % (Manual) Monocytes % Monocytes % (Manual) Eosinophils % Eosinophils % (Manual) Basophils % Basophils % (Manual) Myelocytes % (Man) Promyelocytes % (Man) Blast Cells % (Manual) Nucleated RBC % Metamyelocytes Hypochromia Platelet Estimate Polychromasia Poikilocytosis Anisocytosis Microcytosis Macrocytosis Target Cells Ovalocytes Stomatocytes Schistocytes Retic Count PT with INR INR Anticoagulation Therapy Puncture Site ABG pH ABG pCO2 at Pt Temp ABG pO2 at Pt Temp ABG HCO3 ABG O2 Sat (Measured) ABG O2 Content ABG Base Excess Roderick Test O2 Delivery Device Oxygen Flow Rate Vent Mode Vent Rate Mechanical Rate Pressure Support Vent Sodium Potassium Chloride Carbon Dioxide Anion Gap BUN Creatinine Creat Clearance w eGFR Random Glucose Lactic Acid Calcium Phosphorus Magnesium Iron TIBC Iron Saturation Ferritin 244.5 Total Bilirubin AST ALT Alkaline Phosphatase Troponin I Cancelled Total Protein Albumin Vitamin B12 Serum Folate Urine Color Urine Appearance Urine pH Ur Specific [place] Urine Protein Urine Glucose (UA) Urine Ketones Urine Blood Urine Nitrite Urine Bilirubin Urine Urobilinogen Ur Leukocyte Esterase Fluid Source Fluid Osmolality POC Fluid pH Fluid WBC Fluid RBC Fluid Neutrophils Fluid Lymphocytes Fluid Other Cells Fluid Total Protein Fluid Albumin Body Fluid LDH Source Fluid Amylase Fluid Triglycerides Fluid Uric Acid Pleural Monocytes Pleural Eosinophils Pleural Basophils Pleural Plasma Cells Pleural Histocytes Pleural Macrophages Pleural Mesothelial Pleural Diff Comment Stool Occult Blood Negative Vancomycin Pre-Dose Influenza A (Rapid) Influenza B (Rapid) 05/03/18 05/03/18 05/03/18 06:55 06:55 06:55 WBC 19.2 H RBC 3.13 L Hgb 8.8 L Hct 26.8 L MCV 85.8 MCH 28.3 MCHC 33.0 RDW 15.5 Plt Count 267 MPV 8.0 Absolute Neuts (auto) 17.5 H Neutrophils % 91.1 H Neutrophils % (Manual) 81.0 Band Neutrophils % 8.0 Lymphocytes % 3.4 L D Lymphocytes % (Manual) 7.0 L Monocytes % 4.8 Monocytes % (Manual) 4 Eosinophils % 0.0 D Eosinophils % (Manual) 0.0 Basophils % 0.7 Basophils % (Manual) 0.0 Myelocytes % (Man) 0 Promyelocytes % (Man) 0 Blast Cells % (Manual) 0 Nucleated RBC % 0 Metamyelocytes 0 Hypochromia 0 Platelet Estimate Normal Polychromasia 0 Poikilocytosis 0 Anisocytosis 0 Microcytosis 0 Macrocytosis 0 Target Cells Ovalocytes Stomatocytes Schistocytes Retic Count PT with INR INR Anticoagulation Therapy Puncture Site ABG pH ABG pCO2 at Pt Temp ABG pO2 at Pt Temp ABG HCO3 ABG O2 Sat (Measured) ABG O2 Content ABG Base Excess Roderick Test O2 Delivery Device Oxygen Flow Rate Vent Mode Vent Rate Mechanical Rate Pressure Support Vent Sodium 136 Potassium 3.2 L Chloride 102 Carbon Dioxide 24 Anion Gap 10 BUN 6 L Creatinine 0.5 L Creat Clearance w eGFR > 60 Random Glucose 117 H Lactic Acid Calcium 7.0 L Phosphorus Magnesium Iron 8 L TIBC 125 L Iron Saturation 6 L Ferritin Total Bilirubin 0.4 AST 26 ALT 30 Alkaline Phosphatase 77 Troponin I < 0.02 Total Protein 5.4 L Albumin 1.8 L Vitamin B12 Serum Folate 16 Urine Color Urine Appearance Urine pH Ur Specific [place] Urine Protein Urine Glucose (UA) Urine Ketones Urine Blood Urine Nitrite Urine Bilirubin Urine Urobilinogen Ur Leukocyte Esterase Fluid Source Fluid Osmolality POC Fluid pH Fluid WBC Fluid RBC Fluid Neutrophils Fluid Lymphocytes Fluid Other Cells Fluid Total Protein Fluid Albumin Body Fluid LDH Source Fluid Amylase Fluid Triglycerides Fluid Uric Acid Pleural Monocytes Pleural Eosinophils Pleural Basophils Pleural Plasma Cells Pleural Histocytes Pleural Macrophages Pleural Mesothelial Pleural Diff Comment Stool Occult Blood Vancomycin Pre-Dose Influenza A (Rapid) Influenza B (Rapid) 05/03/18 05/03/18 05/03/18 06:55 06:55 10:00 WBC RBC Hgb Hct MCV MCH MCHC RDW Plt Count MPV Absolute Neuts (auto) Neutrophils % Neutrophils % (Manual) Band Neutrophils % Lymphocytes % Lymphocytes % (Manual) Monocytes % Monocytes % (Manual) Eosinophils % Eosinophils % (Manual) Basophils % Basophils % (Manual) Myelocytes % (Man) Promyelocytes % (Man) Blast Cells % (Manual) Nucleated RBC % Metamyelocytes Hypochromia Platelet Estimate Polychromasia Poikilocytosis Anisocytosis Microcytosis Macrocytosis Target Cells Ovalocytes Stomatocytes Schistocytes Retic Count 1.48 PT with INR INR Anticoagulation Therapy Puncture Site No Result Required. ABG pH 7.36 ABG pCO2 at Pt Temp 42.4 ABG pO2 at Pt Temp 77.2 L ABG HCO3 23.4 ABG O2 Sat (Measured) 93.5 ABG O2 Content 15.6 ABG Base Excess -1.5 Roderick Test No Result Required. O2 Delivery Device Oxygen Flow Rate No Result Required. Vent Mode Vent Rate Mechanical Rate Pressure Support Vent Sodium Potassium Chloride Carbon Dioxide Anion Gap BUN Creatinine Creat Clearance w eGFR Random Glucose Lactic Acid Calcium Phosphorus Magnesium Iron TIBC Iron Saturation Ferritin Total Bilirubin AST ALT Alkaline Phosphatase Troponin I Total Protein Albumin Vitamin B12 775 Serum Folate Urine Color Urine Appearance Urine pH Ur Specific [place] Urine Protein Urine Glucose (UA) Urine Ketones Urine Blood Urine Nitrite Urine Bilirubin Urine Urobilinogen Ur Leukocyte Esterase Fluid Source Fluid Osmolality POC Fluid pH Fluid WBC Fluid RBC Fluid Neutrophils Fluid Lymphocytes Fluid Other Cells Fluid Total Protein Fluid Albumin Body Fluid LDH Source Fluid Amylase Fluid Triglycerides Fluid Uric Acid Pleural Monocytes Pleural Eosinophils Pleural Basophils Pleural Plasma Cells Pleural Histocytes Pleural Macrophages Pleural Mesothelial Pleural Diff Comment Stool Occult Blood Vancomycin Pre-Dose Influenza A (Rapid) Influenza B (Rapid) 05/03/18 05/03/18 05/04/18 13:43 18:35 06:50 WBC RBC Hgb Hct MCV MCH MCHC RDW Plt Count MPV Absolute Neuts (auto) Neutrophils % Neutrophils % (Manual) Band Neutrophils % Lymphocytes % Lymphocytes % (Manual) Monocytes % Monocytes % (Manual) Eosinophils % Eosinophils % (Manual) Basophils % Basophils % (Manual) Myelocytes % (Man) Promyelocytes % (Man) Blast Cells % (Manual) Nucleated RBC % Metamyelocytes Hypochromia Platelet Estimate Polychromasia Poikilocytosis Anisocytosis Microcytosis Macrocytosis Target Cells Ovalocytes Stomatocytes Schistocytes Retic Count PT with INR INR Anticoagulation Therapy No Result Required. No Result Required. Puncture Site No Result Required. Right radial ABG pH 7.36 7.44 ABG pCO2 at Pt Temp 48.3 H 38.3 D ABG pO2 at Pt Temp 88.0 70.9 L ABG HCO3 26.6 H 25.6 ABG O2 Sat (Measured) 95.7 94.2 ABG O2 Content 13.4 L 11.6 L ABG Base Excess 1.4 1.9 Roderick Test Positive Positive O2 Delivery Device No Result Required. N/c Oxygen Flow Rate No Result Required. 4lpm Vent Mode No Result Required. No Result Required. Vent Rate No Result Required. No Result Required. Mechanical Rate No Result Required. No Result Required. Pressure Support Vent No Result Required. No Result Required. Sodium Potassium Chloride Carbon Dioxide Anion Gap BUN Creatinine Creat Clearance w eGFR Random Glucose Lactic Acid 0.8 Calcium Phosphorus Magnesium Iron TIBC Iron Saturation Ferritin Total Bilirubin AST ALT Alkaline Phosphatase Troponin I Total Protein Albumin Vitamin B12 Serum Folate Urine Color Urine Appearance Urine pH Ur Specific [place] Urine Protein Urine Glucose (UA) Urine Ketones Urine Blood Urine Nitrite Urine Bilirubin Urine Urobilinogen Ur Leukocyte Esterase Fluid Source Fluid Osmolality POC Fluid pH Fluid WBC Fluid RBC Fluid Neutrophils Fluid Lymphocytes Fluid Other Cells Fluid Total Protein Fluid Albumin Body Fluid LDH Source Fluid Amylase Fluid Triglycerides Fluid Uric Acid Pleural Monocytes Pleural Eosinophils Pleural Basophils Pleural Plasma Cells Pleural Histocytes Pleural Macrophages Pleural Mesothelial Pleural Diff Comment Stool Occult Blood Vancomycin Pre-Dose Influenza A (Rapid) Influenza B (Rapid) 05/04/18 05/04/18 05/05/18 07:00 07:00 06:15 WBC 24.3 H 21.7 H RBC 3.12 L 3.13 L Hgb 9.3 L 8.8 L Hct 26.8 L 27.3 L MCV 85.8 87.1 MCH 29.9 28.2 MCHC 34.8 32.4 RDW 15.6 16.2 H Plt Count 311 327 MPV 8.1 7.8 Absolute Neuts (auto) 22.7 H 19.7 H Neutrophils % 93.3 H 90.8 H Neutrophils % (Manual) 88.0 H 94.0 H Band Neutrophils % 5.0 0.0 Lymphocytes % 2.4 L D 3.5 L D Lymphocytes % (Manual) 3.0 L D 3.0 L Monocytes % 4.1 5.3 Monocytes % (Manual) 3 L 3 L Eosinophils % 0.0 0.1 D Eosinophils % (Manual) 0.0 0.0 Basophils % 0.2 0.3 Basophils % (Manual) 0.0 0.0 Myelocytes % (Man) 0 0 Promyelocytes % (Man) 0 0 Blast Cells % (Manual) 0 0 Nucleated RBC % 0 0 Metamyelocytes 0 0 Hypochromia 0 0 Platelet Estimate Normal Normal Polychromasia 0 0 Poikilocytosis 0 0 Anisocytosis 0 0 Microcytosis 0 0 Macrocytosis 0 0 Target Cells Ovalocytes Stomatocytes Schistocytes Retic Count PT with INR INR Anticoagulation Therapy Puncture Site ABG pH ABG pCO2 at Pt Temp ABG pO2 at Pt Temp ABG HCO3 ABG O2 Sat (Measured) ABG O2 Content ABG Base Excess Roderick Test O2 Delivery Device Oxygen Flow Rate Vent Mode Vent Rate Mechanical Rate Pressure Support Vent Sodium 139 Potassium 4.3 Chloride 106 Carbon Dioxide 25 Anion Gap 8 BUN 9 Creatinine 0.4 L Creat Clearance w eGFR > 60 Random Glucose 142 H Lactic Acid Calcium 7.6 L Phosphorus 3.2 Magnesium 2.6 H Iron TIBC Iron Saturation Ferritin Total Bilirubin AST ALT Alkaline Phosphatase Troponin I Total Protein Albumin Vitamin B12 Serum Folate Urine Color Urine Appearance Urine pH Ur Specific [place] Urine Protein Urine Glucose (UA) Urine Ketones Urine Blood Urine Nitrite Urine Bilirubin Urine Urobilinogen Ur Leukocyte Esterase Fluid Source Fluid Osmolality POC Fluid pH Fluid WBC Fluid RBC Fluid Neutrophils Fluid Lymphocytes Fluid Other Cells Fluid Total Protein Fluid Albumin Body Fluid LDH Source Fluid Amylase Fluid Triglycerides Fluid Uric Acid Pleural Monocytes Pleural Eosinophils Pleural Basophils Pleural Plasma Cells Pleural Histocytes Pleural Macrophages Pleural Mesothelial Pleural Diff Comment Stool Occult Blood Vancomycin Pre-Dose Influenza A (Rapid) Influenza B (Rapid) 05/05/18 05/06/18 05/06/18 06:15 05:30 05:30 WBC 17.6 H RBC 3.30 L Hgb 9.3 L Hct 28.8 L MCV 87.0 MCH 28.1 MCHC 32.3 RDW 15.9 Plt Count 344 MPV 8.0 Absolute Neuts (auto) 15.9 H Neutrophils % 90.5 H Neutrophils % (Manual) Band Neutrophils % Lymphocytes % 3.3 L Lymphocytes % (Manual) Monocytes % 4.8 Monocytes % (Manual) Eosinophils % 0.5 D Eosinophils % (Manual) Basophils % 0.9 Basophils % (Manual) Myelocytes % (Man) Promyelocytes % (Man) Blast Cells % (Manual) Nucleated RBC % 0 Metamyelocytes Hypochromia Platelet Estimate Polychromasia Poikilocytosis Anisocytosis Microcytosis Macrocytosis Target Cells Ovalocytes Stomatocytes Schistocytes Retic Count PT with INR INR Anticoagulation Therapy Puncture Site ABG pH ABG pCO2 at Pt Temp ABG pO2 at Pt Temp ABG HCO3 ABG O2 Sat (Measured) ABG O2 Content ABG Base Excess Roderick Test O2 Delivery Device Oxygen Flow Rate Vent Mode Vent Rate Mechanical Rate Pressure Support Vent Sodium 139 136 Potassium 4.2 3.8 Chloride 107 101 Carbon Dioxide 27 27 Anion Gap 5 L 8 BUN 9 5 L Creatinine 0.5 L 0.4 L Creat Clearance w eGFR > 60 > 60 Random Glucose 113 H 114 H Lactic Acid Calcium 7.6 L 7.6 L Phosphorus 2.7 3.5 Magnesium 2.6 H 2.3 Iron TIBC Iron Saturation Ferritin Total Bilirubin AST ALT Alkaline Phosphatase Troponin I Total Protein Albumin Vitamin B12 Serum Folate Urine Color Urine Appearance Urine pH Ur Specific [place] Urine Protein Urine Glucose (UA) Urine Ketones Urine Blood Urine Nitrite Urine Bilirubin Urine Urobilinogen Ur Leukocyte Esterase Fluid Source Fluid Osmolality POC Fluid pH Fluid WBC Fluid RBC Fluid Neutrophils Fluid Lymphocytes Fluid Other Cells Fluid Total Protein Fluid Albumin Body Fluid LDH Source Fluid Amylase Fluid Triglycerides Fluid Uric Acid Pleural Monocytes Pleural Eosinophils Pleural Basophils Pleural Plasma Cells Pleural Histocytes Pleural Macrophages Pleural Mesothelial Pleural Diff Comment Stool Occult Blood Vancomycin Pre-Dose Influenza A (Rapid) Influenza B (Rapid) 05/07/18 05/07/18 05/07/18 06:25 06:25 06:25 WBC 17.2 H RBC 3.24 L Hgb 9.0 L Hct 28.2 L MCV 87.0 MCH 27.9 MCHC 32.1 RDW 16.3 H Plt Count 342 MPV 7.4 L Absolute Neuts (auto) 15.2 H Neutrophils % 88.3 H Neutrophils % (Manual) Band Neutrophils % Lymphocytes % 3.4 L Lymphocytes % (Manual) Monocytes % 6.3 Monocytes % (Manual) Eosinophils % 0.9 Eosinophils % (Manual) Basophils % 1.1 Basophils % (Manual) Myelocytes % (Man) Promyelocytes % (Man) Blast Cells % (Manual) Nucleated RBC % 0 Metamyelocytes Hypochromia Platelet Estimate Polychromasia Poikilocytosis Anisocytosis Microcytosis Macrocytosis Target Cells Ovalocytes Stomatocytes Schistocytes Retic Count PT with INR 15.20 H INR 1.28 H Anticoagulation Therapy Puncture Site ABG pH ABG pCO2 at Pt Temp ABG pO2 at Pt Temp ABG HCO3 ABG O2 Sat (Measured) ABG O2 Content ABG Base Excess Roderick Test O2 Delivery Device Oxygen Flow Rate Vent Mode Vent Rate Mechanical Rate Pressure Support Vent Sodium 141 Potassium 3.8 Chloride 104 Carbon Dioxide 29 Anion Gap 7 L BUN 4 L Creatinine 0.5 L Creat Clearance w eGFR > 60 Random Glucose 134 H Lactic Acid Calcium 7.5 L Phosphorus Magnesium Iron TIBC Iron Saturation Ferritin Total Bilirubin AST ALT Alkaline Phosphatase Troponin I Total Protein Albumin Vitamin B12 Serum Folate Urine Color Urine Appearance Urine pH Ur Specific [place] Urine Protein Urine Glucose (UA) Urine Ketones Urine Blood Urine Nitrite Urine Bilirubin Urine Urobilinogen Ur Leukocyte Esterase Fluid Source Fluid Osmolality POC Fluid pH Fluid WBC Fluid RBC Fluid Neutrophils Fluid Lymphocytes Fluid Other Cells Fluid Total Protein Fluid Albumin Body Fluid LDH Source Fluid Amylase Fluid Triglycerides Fluid Uric Acid Pleural Monocytes Pleural Eosinophils Pleural Basophils Pleural Plasma Cells Pleural Histocytes Pleural Macrophages Pleural Mesothelial Pleural Diff Comment Stool Occult Blood Vancomycin Pre-Dose Influenza A (Rapid) Influenza B (Rapid) 05/07/18 05/07/18 05/08/18 13:37 16:15 05:30 WBC 20.7 H RBC 3.22 L Hgb 9.1 L Hct 27.9 L MCV 86.7 MCH 28.2 MCHC 32.5 RDW 15.9 Plt Count 403 MPV 7.7 Absolute Neuts (auto) 19.6 H Neutrophils % 94.3 H Neutrophils % (Manual) 97.0 H Band Neutrophils % 0.0 Lymphocytes % 2.0 L D Lymphocytes % (Manual) 1.0 L D Monocytes % 3.3 L Monocytes % (Manual) 2 L Eosinophils % 0.0 D Eosinophils % (Manual) 0.0 Basophils % 0.4 Basophils % (Manual) 0.0 Myelocytes % (Man) 0 Promyelocytes % (Man) 0 Blast Cells % (Manual) 0 Nucleated RBC % 0 Metamyelocytes 0 Hypochromia 0 Platelet Estimate Normal Polychromasia 1+ Poikilocytosis 1+ Anisocytosis 2+ Microcytosis 2+ Macrocytosis 0 Target Cells 1+ Ovalocytes Stomatocytes 1+ Schistocytes 1+ Retic Count PT with INR INR Anticoagulation Therapy Puncture Site Right radial ABG pH 7.45 ABG pCO2 at Pt Temp 40.7 ABG pO2 at Pt Temp 76.2 L ABG HCO3 28.2 H ABG O2 Sat (Measured) 95.6 ABG O2 Content 12.5 L ABG Base Excess 4.3 H Roderick Test No Result Required. O2 Delivery Device Nasal Oxygen Flow Rate 4l Vent Mode Vent Rate Mechanical Rate Pressure Support Vent Sodium Potassium Chloride Carbon Dioxide Anion Gap BUN Creatinine Creat Clearance w eGFR Random Glucose Lactic Acid Calcium Phosphorus Magnesium Iron TIBC Iron Saturation Ferritin Total Bilirubin AST ALT Alkaline Phosphatase Troponin I Total Protein Albumin Vitamin B12 Serum Folate Urine Color Urine Appearance Urine pH Ur Specific [place] Urine Protein Urine Glucose (UA) Urine Ketones Urine Blood Urine Nitrite Urine Bilirubin Urine Urobilinogen Ur Leukocyte Esterase Fluid Source Fluid Osmolality POC Fluid pH Fluid WBC Fluid RBC Fluid Neutrophils Fluid Lymphocytes Fluid Other Cells Fluid Total Protein Fluid Albumin Body Fluid LDH Source Fluid Amylase Fluid Triglycerides Fluid Uric Acid Pleural Monocytes Pleural Eosinophils Pleural Basophils Pleural Plasma Cells Pleural Histocytes Pleural Macrophages Pleural Mesothelial Pleural Diff Comment Stool Occult Blood Vancomycin Pre-Dose 2.1 L Influenza A (Rapid) Influenza B (Rapid) 05/08/18 05/08/18 05/08/18 05:30 09:36 13:00 WBC RBC Hgb Hct MCV MCH MCHC RDW Plt Count MPV Absolute Neuts (auto) Neutrophils % Neutrophils % (Manual) Band Neutrophils % Lymphocytes % Lymphocytes % (Manual) Monocytes % Monocytes % (Manual) Eosinophils % Eosinophils % (Manual) Basophils % Basophils % (Manual) Myelocytes % (Man) Promyelocytes % (Man) Blast Cells % (Manual) Nucleated RBC % Metamyelocytes Hypochromia Platelet Estimate Polychromasia Poikilocytosis Anisocytosis Microcytosis Macrocytosis Target Cells Ovalocytes Stomatocytes Schistocytes Retic Count PT with INR INR Anticoagulation Therapy No Result Required. Puncture Site Right radial ABG pH 7.48 H ABG pCO2 at Pt Temp 37.8 ABG pO2 at Pt Temp 52.4 L D ABG HCO3 27.7 H ABG O2 Sat (Measured) 85.1 L ABG O2 Content No Result Required. ABG Base Excess 4.4 H Roderick Test Positive O2 Delivery Device N/c Oxygen Flow Rate 3l Vent Mode No Result Required. Vent Rate No Result Required. Mechanical Rate No Result Required. Pressure Support Vent No Result Required. Sodium 140 Potassium 4.1 Chloride 104 Carbon Dioxide 29 Anion Gap 6 L BUN 6 L Creatinine 0.4 L Creat Clearance w eGFR > 60 Random Glucose 155 H Lactic Acid Calcium 7.7 L Phosphorus 3.8 Magnesium 2.5 H Iron TIBC Iron Saturation Ferritin Total Bilirubin AST ALT Alkaline Phosphatase Troponin I Total Protein Albumin Vitamin B12 Serum Folate Urine Color Urine Appearance Urine pH Ur Specific [place] Urine Protein Urine Glucose (UA) Urine Ketones Urine Blood Urine Nitrite Urine Bilirubin Urine Urobilinogen Ur Leukocyte Esterase Fluid Source Fluid Osmolality POC Fluid pH Cancelled Fluid WBC Fluid RBC Fluid Neutrophils Fluid Lymphocytes Fluid Other Cells Fluid Total Protein Cancelled Fluid Albumin Cancelled Body Fluid LDH Source Fluid Amylase Fluid Triglycerides Cancelled Fluid Uric Acid Cancelled Pleural Monocytes Pleural Eosinophils Pleural Basophils Pleural Plasma Cells Pleural Histocytes Pleural Macrophages Pleural Mesothelial Pleural Diff Comment Stool Occult Blood Vancomycin Pre-Dose Influenza A (Rapid) Influenza B (Rapid) 05/08/18 05/08/18 05/08/18 13:00 13:00 13:00 WBC RBC Hgb Hct MCV MCH MCHC RDW Plt Count MPV Absolute Neuts (auto) Neutrophils % Neutrophils % (Manual) Band Neutrophils % Lymphocytes % Lymphocytes % (Manual) Monocytes % Monocytes % (Manual) Eosinophils % Eosinophils % (Manual) Basophils % Basophils % (Manual) Myelocytes % (Man) Promyelocytes % (Man) Blast Cells % (Manual) Nucleated RBC % Metamyelocytes Hypochromia Platelet Estimate Polychromasia Poikilocytosis Anisocytosis Microcytosis Macrocytosis Target Cells Ovalocytes Stomatocytes Schistocytes Retic Count PT with INR INR Anticoagulation Therapy Puncture Site ABG pH ABG pCO2 at Pt Temp ABG pO2 at Pt Temp ABG HCO3 ABG O2 Sat (Measured) ABG O2 Content ABG Base Excess Roderick Test O2 Delivery Device Oxygen Flow Rate Vent Mode Vent Rate Mechanical Rate Pressure Support Vent Sodium Potassium Chloride Carbon Dioxide Anion Gap BUN Creatinine Creat Clearance w eGFR Random Glucose Lactic Acid Calcium Phosphorus Magnesium Iron TIBC Iron Saturation Ferritin Total Bilirubin AST ALT Alkaline Phosphatase Troponin I Total Protein Albumin Vitamin B12 Serum Folate Urine Color Urine Appearance Urine pH Ur Specific [place] Urine Protein Urine Glucose (UA) Urine Ketones Urine Blood Urine Nitrite Urine Bilirubin Urine Urobilinogen Ur Leukocyte Esterase Fluid Source Cancelled Fluid Osmolality Cancelled 301 POC Fluid pH 7.5 Fluid WBC Cancelled Fluid RBC Cancelled Fluid Neutrophils Cancelled Fluid Lymphocytes Cancelled Fluid Other Cells Cancelled Fluid Total Protein 3.6 Fluid Albumin 1.4 Body Fluid LDH Source Cancelled 827 Fluid Amylase Cancelled 13 Fluid Triglycerides 63 Fluid Uric Acid 1.6 Pleural Monocytes Cancelled Pleural Eosinophils Cancelled Pleural Basophils Cancelled Pleural Plasma Cells Cancelled Pleural Histocytes Cancelled Pleural Macrophages Cancelled Pleural Mesothelial Cancelled Pleural Diff Comment Cancelled Stool Occult Blood Vancomycin Pre-Dose Influenza A (Rapid) Influenza B (Rapid) 05/08/18 05/09/18 05/09/18 13:00 05:30 06:00 WBC 18.1 H RBC 3.25 L Hgb 9.0 L Hct 28.0 L MCV 86.0 MCH 27.6 MCHC 32.1 RDW 16.2 H Plt Count 439 H MPV 7.6 Absolute Neuts (auto) 16.6 H Neutrophils % 91.7 H Neutrophils % (Manual) 94.0 H Band Neutrophils % 0.0 Lymphocytes % 4.2 L D Lymphocytes % (Manual) 3.0 L D Monocytes % 3.9 Monocytes % (Manual) 3 L Eosinophils % 0.0 Eosinophils % (Manual) 0.0 Basophils % 0.2 Basophils % (Manual) 0.0 Myelocytes % (Man) 0 Promyelocytes % (Man) 0 Blast Cells % (Manual) 0 Nucleated RBC % 0 Metamyelocytes 0 Hypochromia 1+ Platelet Estimate Normal Polychromasia 1+ Poikilocytosis 0 Anisocytosis 1+ Microcytosis 1+ Macrocytosis 1+ Target Cells Ovalocytes 1+ Stomatocytes Schistocytes Retic Count PT with INR INR Anticoagulation Therapy Puncture Site ABG pH ABG pCO2 at Pt Temp ABG pO2 at Pt Temp ABG HCO3 ABG O2 Sat (Measured) ABG O2 Content ABG Base Excess Roderick Test O2 Delivery Device Oxygen Flow Rate Vent Mode Vent Rate Mechanical Rate Pressure Support Vent Sodium 139 Potassium 4.2 Chloride 106 Carbon Dioxide 28 Anion Gap 6 L BUN 10 Creatinine 0.4 L Creat Clearance w eGFR > 60 Random Glucose 156 H Lactic Acid Calcium 7.5 L Phosphorus Magnesium 2.7 H Iron TIBC Iron Saturation Ferritin Total Bilirubin AST ALT Alkaline Phosphatase Troponin I Total Protein Albumin Vitamin B12 Serum Folate Urine Color Urine Appearance Urine pH Ur Specific [place] Urine Protein Urine Glucose (UA) Urine Ketones Urine Blood Urine Nitrite Urine Bilirubin Urine Urobilinogen Ur Leukocyte Esterase Fluid Source Pleural fluid Fluid Osmolality POC Fluid pH Fluid WBC 554 Fluid RBC 2375 Fluid Neutrophils 44 Fluid Lymphocytes 49 Fluid Other Cells Fluid Total Protein Fluid Albumin Body Fluid LDH Source Fluid Amylase Fluid Triglycerides Fluid Uric Acid Pleural Monocytes Pleural Eosinophils Pleural Basophils Pleural Plasma Cells Pleural Histocytes Pleural Macrophages 7 Pleural Mesothelial Pleural Diff Comment Stool Occult Blood Vancomycin Pre-Dose Influenza A (Rapid) Influenza B (Rapid) 05/09/18 05/10/18 05/10/18 14:20 05:40 05:40 WBC 15.2 H RBC 3.42 L Hgb 9.4 L Hct 29.6 L MCV 86.6 MCH 27.5 MCHC 31.8 L RDW 16.3 H Plt Count 462 H MPV 7.6 Absolute Neuts (auto) 13.5 H Neutrophils % 88.5 H Neutrophils % (Manual) Band Neutrophils % Lymphocytes % 5.7 L D Lymphocytes % (Manual) Monocytes % 5.4 Monocytes % (Manual) Eosinophils % 0.0 Eosinophils % (Manual) Basophils % 0.4 Basophils % (Manual) Myelocytes % (Man) Promyelocytes % (Man) Blast Cells % (Manual) Nucleated RBC % 0 Metamyelocytes Hypochromia Platelet Estimate Polychromasia Poikilocytosis Anisocytosis Microcytosis Macrocytosis Target Cells Ovalocytes Stomatocytes Schistocytes Retic Count PT with INR INR Anticoagulation Therapy Puncture Site ABG pH ABG pCO2 at Pt Temp ABG pO2 at Pt Temp ABG HCO3 ABG O2 Sat (Measured) ABG O2 Content ABG Base Excess Roderick Test O2 Delivery Device Oxygen Flow Rate Vent Mode Vent Rate Mechanical Rate Pressure Support Vent Sodium 139 Potassium 4.6 Chloride 104 Carbon Dioxide 29 Anion Gap 7 L BUN 12 Creatinine 0.7 Creat Clearance w eGFR > 60 Random Glucose 137 H Lactic Acid Calcium 7.7 L Phosphorus Magnesium Iron TIBC Iron Saturation Ferritin Total Bilirubin AST ALT Alkaline Phosphatase Troponin I Total Protein Albumin Vitamin B12 Serum Folate Urine Color Urine Appearance Urine pH Ur Specific [place] Urine Protein Urine Glucose (UA) Urine Ketones Urine Blood Urine Nitrite Urine Bilirubin Urine Urobilinogen Ur Leukocyte Esterase Fluid Source Fluid Osmolality POC Fluid pH Fluid WBC Fluid RBC Fluid Neutrophils Fluid Lymphocytes Fluid Other Cells Fluid Total Protein Fluid Albumin Body Fluid LDH Source Fluid Amylase Fluid Triglycerides Fluid Uric Acid Pleural Monocytes Pleural Eosinophils Pleural Basophils Pleural Plasma Cells Pleural Histocytes Pleural Macrophages Pleural Mesothelial Pleural Diff Comment Stool Occult Blood Vancomycin Pre-Dose 2.6 L Influenza A (Rapid) Influenza B (Rapid) 05/11/18 05/11/18 06:30 06:30 WBC 15.1 H RBC 3.53 L Hgb 9.6 L Hct 30.5 L MCV 86.4 MCH 27.2 MCHC 31.5 L RDW 16.3 H Plt Count 457 H MPV 7.2 L Absolute Neuts (auto) 13.1 H Neutrophils % 86.5 H Neutrophils % (Manual) Band Neutrophils % Lymphocytes % 6.9 L D Lymphocytes % (Manual) Monocytes % 6.5 Monocytes % (Manual) Eosinophils % 0.0 Eosinophils % (Manual) Basophils % 0.1 Basophils % (Manual) Myelocytes % (Man) Promyelocytes % (Man) Blast Cells % (Manual) Nucleated RBC % 0 Metamyelocytes Hypochromia Platelet Estimate Polychromasia Poikilocytosis Anisocytosis Microcytosis Macrocytosis Target Cells Ovalocytes Stomatocytes Schistocytes Retic Count PT with INR INR Anticoagulation Therapy Puncture Site ABG pH ABG pCO2 at Pt Temp ABG pO2 at Pt Temp ABG HCO3 ABG O2 Sat (Measured) ABG O2 Content ABG Base Excess Roderick Test O2 Delivery Device Oxygen Flow Rate Vent Mode Vent Rate Mechanical Rate Pressure Support Vent Sodium 136 Potassium 4.3 Chloride 102 Carbon Dioxide 28 Anion Gap 6 L BUN 15 Creatinine 0.7 Creat Clearance w eGFR > 60 Random Glucose 119 H Lactic Acid Calcium 7.8 L Phosphorus Magnesium Iron TIBC Iron Saturation Ferritin Total Bilirubin AST ALT Alkaline Phosphatase Troponin I Total Protein Albumin Vitamin B12 Serum Folate Urine Color Urine Appearance Urine pH Ur Specific [place] Urine Protein Urine Glucose (UA) Urine Ketones Urine Blood Urine Nitrite Urine Bilirubin Urine Urobilinogen Ur Leukocyte Esterase Fluid Source Fluid Osmolality POC Fluid pH Fluid WBC Fluid RBC Fluid Neutrophils Fluid Lymphocytes Fluid Other Cells Fluid Total Protein Fluid Albumin Body Fluid LDH Source Fluid Amylase Fluid Triglycerides Fluid Uric Acid Pleural Monocytes Pleural Eosinophils Pleural Basophils Pleural Plasma Cells Pleural Histocytes Pleural Macrophages Pleural Mesothelial Pleural Diff Comment Stool Occult Blood Vancomycin Pre-Dose Influenza A (Rapid) Influenza B (Rapid) Microbiology 05/11/18 09:00 Stool Clostridium difficile Antigen ([facility]) - Final 05/11/18 09:00 Stool Clostridium difficile Toxin Assay - Final 05/08/18 13:00 Pleural Fluid AFB Smear Concentration - Final 05/08/18 13:00 Pleural Fluid Mycobacterial Culture - Preliminary 05/08/18 13:00 Pleural Fluid Gram Stain - Final 05/08/18 13:00 Pleural Fluid Body Fluid Culture - Final NO GROWTH OF AEROBIC ORGANISMS AFTER 48 HOURS INCUBATION 05/08/18 13:00 Pleural Fluid Anaerobic Culture - Final NO ANAEROBES WERE ISOLATED 05/08/18 13:00 Pleural Fluid MAYRA Preparation - Preliminary 05/08/18 13:00 Pleural Fluid Fungal Culture - Preliminary 05/02/18 13:48 Blood - Peripheral Venous Blood Culture - Final NO GROWTH AFTER 5 DAYS INCUBATION 05/02/18 13:37 Blood - Peripheral Venous Blood Culture - Final NO GROWTH AFTER 5 DAYS INCUBATION 05/06/18 16:30 Urine For Antigen Detection Legionella Antigen - Final 05/06/18 16:30 Urine For Antigen Detection Streptococcus pneumoniae Antigen (M - Final 05/02/18 09:10 Urine - Urine Clean Catch Urine Culture - Final NO GROWTH OBTAINED CT chest: Clinical information given: pneumonia, evaluate for mass; abnormal prior CT Multiplanar imaging was performed before and following the intravenous administration of nonionic contrast. In comparison to a prior CT exam of 2016 interval development of extensive consolidation is seen within the posterior, medial and basal segments of the right lower lobe. Within the consolidated right lower lobe note is made of several spherical fluid structure the most prominent measuring 2.5 cm in diameter which may represent abscesses versus markedly dilated bronchi/ bronchiectasis. There is also a 1.3 cm focus within the right lower lobe adjacent to the oblique fissure which contains fluid and air also suggestive of abscess formation. Development of focal consolidation is seen within the left lower lobe posteriorly. Within this region of consolidation a 2.5 cm fluid structure is seen which may represent an additional abscess or markedly dilated bronchus. Mild bilateral lower lobe bronchiectasis noted on the previous CT exam is difficult to appreciate on the current exam due to the previously described obscuring opacities. Interval development of small to moderate right-sided and trace left sided pleural effusions is noted. Development of bilateral hilar lymphadenopathy is seen as well as development of subcarinal mediastinal lymphadenopathy. Interval development of a very small pericardial effusion is noted. There is no definite cardiac enlargement. No aortic aneurysm is noted. The osseous structures demonstrate no gross acute pathology. IMPRESSION: In comparison to a previous exam of 04/12/2017 interval development of extensive partial right lower lobe consolidation is noted consistent with an infiltrate. Within the partially consolidated right lower lobe several spherical fluid structure is are noted the most prominent measuring 2.5 cm in diameter which may represent abscesses ( versus marked increase in the degree of bronchiectasis). The previous exam had identified mild bibasilar bronchiectasis which is difficult to appreciate on the current exam due to the obscuring opacities. There is also a 1.3 cm focus within the right lower lobe adjacent to the oblique fissure which contains air and fluid which may be due to abscess formation or a markedly dilated bronchus. Development of left basilar consolidation is also noted. Within this region of consolidation a 2.5 cm spherical fluid structure is seen which also may represent abscess formation versus a prominently dilated bronchus. Interval development of small to moderate right-sided and trace left-sided pleural effusions is seen. Development of bilateral hilar lymphadenopathy and subcarinal mediastinal lymphadenopathy is noted. A very small pericardial effusion has developed. A 7 x 4 mm right middle lobe pulmonary nodule noted on the previous exam as well as a more remote CT study of 11/20/2016 cannot be appreciated on the current study possibly due to partially obscuring adjacent discoid atelectasis. Correlate with 3 month follow-up CT in this regard as well as to exclude underlying neoplastic disease within the remainder of the chest. 2D echo limited study, LV function grossly normal, small pericardial effusion HOSPITAL COURSE: Date of Admission:05/02/18 Date of Discharge: 05/12/18 Minutes to complete discharge: 40 Discharge Summary Reason For Visit: PNEUMONIA Current Active Problems Abnormal CT of the chest (Acute) Acute respiratory failure with hypoxia (Acute) Anemia (Acute) Anxiety (Acute) COPD (chronic obstructive pulmonary disease) (Acute) COPD exacerbation (Acute) Diarrhea (Acute) Hypokalemia (Acute) Hyponatremia (Acute) Leukocytosis (Acute) Metabolic encephalopathy (Acute) Parapneumonic effusion (Acute) Pericardial effusion (Acute) Pleural effusion (Acute) Pleural effusion associated with pulmonary infection (Acute) Pneumonia (Acute) Sepsis (Acute) Tobacco dependence (Acute) Hospital Course: 67 yom with PMH of COPD not on home oxygen, anxiety/panic attacks admitted with URI like illness and cough/fevers/dyspnea, found with multifocal pneumonia (R>L ) and bilateral pleural effusion (R>L). He was initially placed on ceftriaxone, however, hospital course was complicated by tachycardia/hypoxia/tachycardia when rapid response was called. His antibiotics were escalated to Zosyn, he has finished 8 days treatment so far and per infectious disease recommendations will be transition to augmentin for 2 more days. He also received Right sided thoracocentesis, fluid was exudative but pleural fluid cultures are negative so far. He was seen by pulmonary and placed on IV steroids. His respiratory status , hemodynamics and leucocytosis continued to improve. He is current afebrile with no further oxygen needs. He was also seen by cardiology for small pericardial effusion and no additional management was recommended. Hematology was consulted for anemia, which was felt from chronic inflammation. His FOBT was negative and he is advised outpatient monitoring. His clonazepam was tapered to avoid lethargy, he was continued on seroquel and lexapro. He was also found with right lung nodule and will need CT chest in 3 months. Condition: Good - Instructions Diet, Activity, Other Instructions: You were admitted with pneumonia and treated with antibiotics. Fluid around your lungs was tapped and studies have been negative so far. MEDICATION: Augmentin 875 mg twice daily for 2 days. Prednisone taper as follows: 40 mg daily for 2 days (05/13 and 05/14) 30 mg daily for 2 days, (05/15 and 05/16) 20 mg daily for 2 days, (05/17 and 05/18) then 10 mg daily for 2 days (05/19 and 05/20), then off. Nystatin swish and swallow for additional 5 days Follow Up: Primary care doctor in 1 week Lung doctor (pulmonlogist in 1-2 weeks) Hematology referral for anemia CBC (complete blood count) in 1-2 weeks with your doctor (to monitor your anemia ) Follow up Chest xray in [address] chest follow up in 3 months for lung nodule. You can have your doctor follow up on final culture results of your pleural fluids in 2-3 weeks Please call 911 or come to ED if any worsening breathing, fevers, persistent cough, bloody sputum or any new concerns, please call 911 or come to ED. Referrals: Anil Mendez MD [Staff Physician] - Emily Sampson MD [Primary Care Provider] - [facility] - Home Medications Comprehensive Discharge Medication List: Ambulatory Orders Quetiapine Fumarate "Xr" [Seroquel XR] 300 mg PO HS 11/09/14 Escitalopram Oxalate [Lexapro -] 10 mg PO BID 05/02/18 Albuterol 0.083% Nebulizer Meme [Ventolin 0.083% Nebulizer Soln -] 1 amp NEB Q4H PRN amp 05/12/18 Amoxicillin/Potassium Clav [Augmentin 875-125 Tablet] 1 each PO BID 2 Days #4 tablet 05/12/18 Budesonide/Formeterol Fumarate [SYMBICORT 160/4.5mcg -] 2 puff IH BID inhaler 05/12/18 Guaifenesin [Mucinex -] 600 mg PO BID tablet.er 05/12/18 Lactobacillus Acidophilus [Bacid -] 1 tab PO DAILY #2 tab 05/12/18 Nicotine Patch [Nicoderm Patch -] 7 mg TD DAILY patch 05/12/18 Nystatin Oral Suspension - [Nystatin Oral Susp 921080 Units/5 ML -] 500,000 units PO Q6HPO 5 Days cup 05/12/18 Prednisone See Taper PO DAILY 8 Days tablet 05/12/18 Quetiapine Fumarate [Seroquel -] 12.5 mg PO BID PRN tablet 05/12/18 clonazePAM [Klonopin -] 0.5 mg PO TID PRN #9 tablet MDD 1.5 mg 05/12/18 This patient is new to me today: No Emergency Visit: Yes ED Registration Date: 05/02/18 Care time: The patient presented to the Emergency Department on the above date and was hospitalized for further evaluation of their emergent condition. Critical Care patient: No - Discharge Referral Referred to [facility] No
[2018-05-12 11:08] VITALS: BP 129/70; PULSE 71; TEMP 97.9
[2018-05-12 13:00] LABS: BASO % 0.2 % (0-2.0); EOS % 0.8 % (0-4.5); HEMATOCRIT 33.7 % (35.4-49); HEMOGLOBIN 10.4 GM/dL (11.7-16.9); LYMPH % 10.6 % (8-40); MCH 26.6 pg (25.7-33.7); MCHC 30.8 g/dl (32.0-35.9); MEAN CELL VOLUME 86.4 fl (80-96); MEAN PLT VOLUME 7.2 fl (7.5-11.1); MONO % 6.5 % (3.8-10.2); NEUT % 81.9 % (42.8-82.8); PLATELET COUNT 512 K/MM3 (134-434); RDW 16.6 % (11.9-15.9); WHITE BLOOD COUNT 16.7 K/mm3 (4.0-10.0)
== END 2018-05-12 12:51 | DRG 871 ==
LOC: JER 12:11 → OBSVTOIN 15:33 → JERBED 15:33 → J5S 18:50 → J4W 05-03 12:07
PROVIDERS: ADMIT Internal Medicine; ATTEND Hospitalist
PROC: 0W993ZZ Drainage of Right Pleural Cavity, Percutaneous Approach (ICD-10-PCS; principal; 2018-05-08)
DX: A41.9 Sepsis, unspecified organism (principal); G93.41 Metabolic encephalopathy; J18.9 Pneumonia, unspecified organism; J96.01 Acute respiratory failure with hypoxia; E87.1 Hypo-osmolality and hyponatremia; I31.3 Pericardial effusion (noninflammatory); J98.11 Atelectasis; J44.1 Chronic obstructive pulmonary disease with (acute) exacerbation; E87.3 Alkalosis; J90 Pleural effusion, not elsewhere classified; B37.0 Candidal stomatitis; F32.9 Major depressive disorder, single episode, unspecified; F41.0 Panic disorder [episodic paroxysmal anxiety]; I45.10 Unspecified right bundle-branch block; J44.9 Chronic obstructive pulmonary disease, unspecified; E87.6 Hypokalemia; D64.9 Anemia, unspecified; F17.210 Nicotine dependence, cigarettes, uncomplicated; F41.1 Generalized anxiety disorder; R19.7 Diarrhea, unspecified; R91.1 Solitary pulmonary nodule
CPT/HCPCS: 36415; 36600; 71045-TC-FY; 71046-TC-FY; 71270-TC; 76942; 80048; 80053; 81003; 82042; 82150; 82272; 82607; 82728; 82746; 82803; 82945; 83540; 83550; 83605; 83615; 83735; 83986; 84100; 84157; 84478; 84484; 84560; 85025; 85044; 85610; 87040; 87070; 87075; 87086; 87102; 87116; 87205; 87206; 87210; 87324; 87449; 87804; 87899; 88108; 88305-TC; 93005; 93010; 93306-TC; 94640; 94761; 97116-GP; 97162-GP; 99285-25; G0480; J0131; J7030

== ENCOUNTER 2020-04-27 11:16 | Emergency (ER) | payer OTHER, BC ==
[2020-04-27 11:21] VITALS: BP 156/63; PULSE 91; TEMP 98; BMI 24.7
[2020-04-27] MEDS ORDERED: predniSONE 20 MG TABLET (UD) PO ONE (11:51)
[2020-04-27] MEDS ORDERED: predniSONE 20 MG TABLET (UD) ONE (11:54)
== END 2020-04-27 12:21 | disposition home or self-care (01) ==
LOC: JERFT 11:16
DX: T78.40XA Allergy, unspecified, initial encounter (principal)
CPT/HCPCS: 99283-25

== ENCOUNTER 2023-04-02 15:20 | Emergency (ER) | payer OTHER, BC ==
[2023-04-02 15:38] VITALS: BP 165/81; PULSE 85; RESP 22; TEMP 98; BMI 23.7
[2023-04-02] MEDS ORDERED: ALBUTEROL SO4 2.5/IPRATROPIUM 0.5 INH SOL 3 ML VIAL.NEB. NEB ONE ×2 (17:11→17:48)
[2023-04-02] MEDS ORDERED: methylPREDNISolone NA SUCC 125 MG/2 ML VIAL IVPB ONE (17:11)
[2023-04-02] MEDS ORDERED: methylPREDNISolone NA SUCC 125 MG/2 ML VIAL ONE (17:48)
[2023-04-02 18:51] LABS: VENOUS BASE EXCESS 1.6 mmol/L (-2-2); VENOUS PCO2 55.5 mmHg (38-52); VENOUS PH 7.334 (7.310-7.410)
[2023-04-02 18:55] LABS: BASO % 0.3 % (0-2.0); HEMATOCRIT 40.9 % (35.4-49); HEMOGLOBIN 13.9 GM/dL (11.7-16.9); LYMPH % 21.4 % (8-40); MCH 31.1 pg (25.7-33.7); MCHC 34.1 g/dl (32.0-35.9); MEAN CELL VOLUME 91.1 fl (80-96); MEAN PLT VOLUME 8.1 fl (7.5-11.1); MONO % 6.6 % (3.8-10.2); NEUT % 68.7 % (42.8-82.8); PLATELET COUNT 212 10^3/uL (134-434); RBC 4.48 M/mm3 (4.00-5.60); RDW 14.2 % (11.9-15.9)
[2023-04-02 19:01] LABS: INR 0.97 (0.83-1.09); PROTHROMBIN TIME (PATIENT) 11.3 SEC (9.7-13.0)
[2023-04-02 19:04] LABS: ACTIVATED PTT 34.3 SECONDS (25.2-36.5)
[2023-04-02 19:24] LABS: POTASSIUM 4.5 mmol/L (3.5-5.1)
[2023-04-02 19:27] LABS: ALBUMIN 4.5 g/dl (3.4-5.0); CALCIUM 9.7 mg/dL (8.5-10.1); MAGNESIUM 2.6 mg/dL (1.8-2.4)
[2023-04-02 19:28] LABS: BLOOD UREA NITROGEN 20.2 mg/dL (7-18)
[2023-04-02 19:31] LABS: CREATININE 0.9 mg/dL (0.55-1.3)
[2023-04-02 19:32] LABS: TOT PROT 7.7 g/dl (6.4-8.2)
[2023-04-02 19:33] LABS: BILIRUBIN,TOTAL 0.4 mg/dL (0.2-1)
== END 2023-04-02 20:18 | disposition home or self-care (01) ==
LOC: JER 15:20
PROC: 3E033GC Introduction of Other Therapeutic Substance into Peripheral Vein, Percutaneous Approach (ICD-10-PCS; principal; 2023-04-02)
PROC: 3E0F7GC Introduction of Other Therapeutic Substance into Respiratory Tract, Via Natural or Artificial Opening (ICD-10-PCS; 2023-04-02)
DX: R21 Rash and other nonspecific skin eruption (principal); J44.9 Chronic obstructive pulmonary disease, unspecified; D69.2 Other nonthrombocytopenic purpura; R06.02 Shortness of breath; Z20.822 Contact with and (suspected) exposure to COVID-19
CPT/HCPCS: 0241U-QW; 36415; 71046-TC-FY; 80053; 82550; 82803; 83735; 84484; 85025; 85610; 85651; 85730; 86140; 93005; 93010; 99285-25

== ENCOUNTER 2024-04-06 19:59 | Inpatient (IN) | payer OTHER, BC ==
[2024-04-06] MEDS ORDERED: ALBUTEROL SO4 2.5/IPRATROPIUM 0.5 INH SOL 3 ML VIAL.NEB. NEB ONE (20:21)
[2024-04-06] MEDS: CEFTRIAXONE 1 GM in DEXTROSE 5%-WATER - 50 ML IVPB ONE (20:27)
[2024-04-06] MEDS: ALBUTEROL SO4 2.5/IPRATROPIUM 0.5 INH SOL 3 ML VIAL.NEB. NEB ONE (20:27)
[2024-04-06] MEDS: methylPREDNISolone NA SUCC 125 MG/2 ML VIAL IVPUSH ONE (20:27)
[2024-04-06] MEDS ORDERED: methylPREDNISolone NA SUCC 125 MG/2 ML VIAL ONE (20:28)
[2024-04-06] MEDS ORDERED: CEFTRIAXONE 1 G/50 ML PREMIX 50 ML IVPB ONE (20:29)
[2024-04-06 20:44] LABS: BASO % 0.4 % (0-2.0); EOS % 0.8 % (0-4.5); HEMATOCRIT 39.3 % (35.4-49); HEMOGLOBIN 13.1 GM/dL (11.7-16.9); LYMPH % 11.2 % (8-40); MCH 30.6 pg (25.7-33.7); MCHC 33.4 g/dl (32.0-35.9); MEAN CELL VOLUME 91.7 fl (80-96); MEAN PLT VOLUME 7.4 fl (7.5-11.1); MONO % 8.1 % (3.8-10.2); NEUT % 79.5 % (42.8-82.8); PLATELET COUNT 161 10^3/uL (134-434); RBC 4.28 M/mm3 (4.00-5.60); RDW 14.5 % (11.9-15.9); WHITE BLOOD COUNT 7.7 K/mm3 (4.0-10.0)
[2024-04-06 20:47] LABS: VENOUS BASE EXCESS 3.2 mmol/L (-2-2); VENOUS O2 SATURATION 61.4 % (70-80); VENOUS PCO2 52.5 mmHg (38-52); VENOUS PH 7.369 (7.310-7.410)
[2024-04-06] MEDS: AZITHROMYCIN IVPB 500 MG in DEXTROSE 5%-WATER - 250 ML IVPB ONE (21:09)
[2024-04-06 21:10] LABS: CALCIUM 8.6 mg/dL (8.5-10.1)
[2024-04-06] MEDS ORDERED: AZITHROMYCIN IVPB 500 MG/250 ML BAG IVPB ONE (21:10)
[2024-04-06 21:11] LABS: ALBUMIN 3.8 g/dl (3.4-5.0); BLOOD UREA NITROGEN 16.2 mg/dL (7-18)
[2024-04-06 21:14] LABS: CREATININE 0.8 mg/dL (0.55-1.3)
[2024-04-06 21:15] LABS: BILIRUBIN,TOTAL 0.4 mg/dL (0.2-1); TOT PROT 6.8 g/dl (6.4-8.2)
[2024-04-06 21:37] LABS: N-TERMINAL BNP 64.2 pg/ml (5-125)
[2024-04-06] MEDS: ALBUTEROL SO4 0.083% IH SOL 2.5 MG/3 ML VIAL.NEB. NEB ONE (21:45)
[2024-04-06] MEDS ORDERED: ALBUTEROL SO4 0.083% IH SOL 2.5 MG/3 ML VIAL.NEB. NEB ONE (21:45)
[2024-04-06] MEDS ORDERED: MAGNESIUM 1GM/D5W - 1 GM/100 ML IVPB IVPB ONE (22:09)
[2024-04-06] MEDS: MAGNESIUM SULF 50% (8.12 MEQ/2 ML-1 GM VIAL) IVPB ONE (22:12)
[2024-04-06 23:54] VITALS: BMI 24.0
[2024-04-07] MEDS: QUEtiapine FUMARATE 100 MG TABLET (FP) PO ONE (00:46)
[2024-04-07] MEDS: ALPRAZolam 1 MG TABLET PO PRN (00:47)
[2024-04-07 09:29] LABS: HEMATOCRIT 38.3 % (35.4-49); MCH 30.9 pg (25.7-33.7); MEAN CELL VOLUME 90.9 fl (80-96); PLATELET COUNT 171 10^3/uL (134-434); RBC 4.21 M/mm3 (4.00-5.60); RDW 14.4 % (11.9-15.9)
[2024-04-07 09:41] LABS: POTASSIUM 4.5 mmol/L (3.5-5.1)
[2024-04-07] MEDS: predniSONE 20 MG TABLET (UD) PO SCH (09:44)
[2024-04-07] MEDS: ENOXAPARIN NA (PORCINE) 40 MG/0.4 ML DISP.SYRIN SQ SCH (09:44)
[2024-04-07 09:45] LABS: CALCIUM 8.7 mg/dL (8.5-10.1)
[2024-04-07 09:46] LABS: ALBUMIN 3.7 g/dl (3.4-5.0); BLOOD UREA NITROGEN 12.7 mg/dL (7-18); MAGNESIUM 2.6 mg/dL (1.8-2.4)
[2024-04-07 09:49] LABS: CREATININE 0.8 mg/dL (0.55-1.3); PHOSPHOROUS 4.2 mg/dL (2.5-4.9)
[2024-04-07 09:50] LABS: BILIRUBIN,TOTAL 0.7 mg/dL (0.2-1); TOT PROT 6.8 g/dl (6.4-8.2)
[2024-04-07] MEDS ORDERED: QUEtiapine FUMARATE 25 MG TABLET ONE ×2 (11:11→15:47)
[2024-04-07] MEDS: ALPRAZolam 0.25 MG TABLET PO PRN (11:12)
[2024-04-07] MEDS: QUEtiapine FUMARATE 50 MG TABLET PO PRN (11:13)
[2024-04-07] MEDS: AZITHROMYCIN IVPB 250 MG in DEXTROSE 5%-WATER - 250 ML IVPB SCH (11:13)
[2024-04-07] MEDS: FLUoxetine HCL 20 MG CAPSULE PO SCH (11:15)
[2024-04-07 15:45] LABS: ARTERIAL BLD GAS O2 SATURATION 95.9 % (95-98); ARTERIAL BLOOD GAS BASE EXCESS -0.2 mmol/L (-2-2); ARTERIAL BLOOD GAS PO2 81.4 mmHg (80-100); ARTERIAL BLOOD GAS pH 7.392 (7.350-7.450)
[2024-04-07 15:46] LABS: ALLENS TEST POSITIVE
[2024-04-07] MEDS: ALBUTEROL SO4 0.083% IH SOL 2.5 MG/3 ML VIAL.NEB. NEB PRN (15:50)
[2024-04-07] MEDS: IPRATROPIUM BR 0.02% 0.5 MG/2.5 ML VIAL.NEB. NEB PRN (17:54)
[2024-04-07] MEDS: MULTIVITAMINS (DAILY MVI) TABLET (FP) PO SCH (18:32)
[2024-04-07] MEDS: ACETAMINOPHEN 1000 MG/100 ML BAG IVPB ONE (20:46)
[2024-04-07] MEDS: QUEtiapine FUMARATE 200 MG TABLET PO SCH (21:03)
[2024-04-08 09:18] LABS: BASO % 0.2 % (0-2.0); EOS % 0.6 % (0-4.5); HEMATOCRIT 39.7 % (35.4-49); LYMPH % 16.6 % (8-40); MCH 30.4 pg (25.7-33.7); MCHC 32.9 g/dl (32.0-35.9); MEAN CELL VOLUME 92.6 fl (80-96); MEAN PLT VOLUME 8.3 fl (7.5-11.1); MONO % 10.9 % (3.8-10.2); NEUT % 71.7 % (42.8-82.8); PLATELET COUNT 159 10^3/uL (134-434); RBC 4.28 M/mm3 (4.00-5.60); RDW 14.2 % (11.9-15.9)
[2024-04-08] MEDS ORDERED: QUEtiapine FUMARATE 25 MG TABLET ONE ×2 (09:25→21:09)
[2024-04-08 09:40] LABS: POTASSIUM 4.4 mmol/L (3.5-5.1)
[2024-04-08 09:42] LABS: BLOOD UREA NITROGEN 15.8 mg/dL (7-18); CALCIUM 9.1 mg/dL (8.5-10.1)
[2024-04-08 09:43] LABS: ALBUMIN 3.9 g/dl (3.4-5.0); MAGNESIUM 2.5 mg/dL (1.8-2.4)
[2024-04-08 09:46] LABS: CREATININE 0.7 mg/dL (0.55-1.3)
[2024-04-08 09:47] LABS: BILIRUBIN,TOTAL 0.8 mg/dL (0.2-1); PHOSPHOROUS 3.3 mg/dL (2.5-4.9)
[2024-04-08 09:48] LABS: TOT PROT 7.1 g/dl (6.4-8.2)
[2024-04-08] MEDS: ALPRAZolam 1 MG TABLET PO PRN (12:45)
[2024-04-08] MEDS: methylPREDNISolone NA SUCC 40 MG/1 ML VIAL IVPUSH SCH (15:01)
[2024-04-08] MEDS: QUEtiapine FUMARATE 50 MG TABLET PO SCH (21:12)
[2024-04-08] MEDS: ALPRAZolam 1 MG TABLET PO SCH (21:12)
[2024-04-09] MEDS ORDERED: QUEtiapine FUMARATE 25 MG TABLET ONE ×2 (09:10→21:03)
[2024-04-09 09:23] LABS: BASO % 0.1 % (0-2.0); HEMATOCRIT 40.4 % (35.4-49); HEMOGLOBIN 13.9 GM/dL (11.7-16.9); MCHC 34.3 g/dl (32.0-35.9); MEAN CELL VOLUME 90.3 fl (80-96); MEAN PLT VOLUME 8.2 fl (7.5-11.1); MONO % 4.4 % (3.8-10.2); NEUT % 85.5 % (42.8-82.8); PLATELET COUNT 197 10^3/uL (134-434); RBC 4.48 M/mm3 (4.00-5.60); WHITE BLOOD COUNT 9.1 K/mm3 (4.0-10.0)
[2024-04-09 09:42] LABS: POTASSIUM 4.3 mmol/L (3.5-5.1)
[2024-04-09 09:50] LABS: BLOOD UREA NITROGEN 18.7 mg/dL (7-18); CALCIUM 9.4 mg/dL (8.5-10.1)
[2024-04-09 09:51] LABS: BILIRUBIN,TOTAL 0.4 mg/dL (0.2-1); TOT PROT 7.4 g/dl (6.4-8.2)
[2024-04-09 09:53] LABS: CREATININE 0.6 mg/dL (0.55-1.3)
[2024-04-09] MEDS: methylPREDNISolone NA SUCC 40 MG/1 ML VIAL IVPUSH SCH (14:46)
[2024-04-10] MEDS: MAG HYDROX/AL HYDROX/SIMETH 30 ML UNIT-DOSE CUP PO ONE (06:24)
[2024-04-10 09:10] LABS: BASO % 0.1 % (0-2.0); HEMATOCRIT 44.9 % (35.4-49); LYMPH % 10.1 % (8-40); MCH 30.4 pg (25.7-33.7); MCHC 33.4 g/dl (32.0-35.9); MEAN PLT VOLUME 7.9 fl (7.5-11.1); NEUT % 83.8 % (42.8-82.8); PLATELET COUNT 251 10^3/uL (134-434); RBC 4.94 M/mm3 (4.00-5.60); RDW 14.3 % (11.9-15.9); WHITE BLOOD COUNT 12.5 K/mm3 (4.0-10.0)
[2024-04-10] MEDS ORDERED: QUEtiapine FUMARATE 25 MG TABLET ONE ×2 (09:17→14:26)
[2024-04-10 10:04] LABS: POTASSIUM 4.5 mmol/L (3.5-5.1)
[2024-04-10 10:11] LABS: BLOOD UREA NITROGEN 19.3 mg/dL (7-18); CALCIUM 9.7 mg/dL (8.5-10.1)
[2024-04-10 10:14] LABS: PHOSPHOROUS 3.3 mg/dL (2.5-4.9)
[2024-04-10 10:15] LABS: CREATININE 0.8 mg/dL (0.55-1.3)
[2024-04-10 10:16] LABS: BILIRUBIN,TOTAL 0.5 mg/dL (0.2-1); TOT PROT 7.6 g/dl (6.4-8.2)
[2024-04-10] MEDS: QUEtiapine FUMARATE 50 MG TABLET PO ONE (14:27)
[2024-04-10] MEDS: methylPREDNISolone NA SUCC 40 MG/1 ML VIAL IVPUSH SCH (17:50)
[2024-04-10] MEDS: QUEtiapine FUMARATE 100 MG TABLET (FP) PO SCH (21:12)
[2024-04-11 09:53] LABS: BASO % 0.1 % (0-2.0); HEMATOCRIT 46.3 % (35.4-49); HEMOGLOBIN 15.2 GM/dL (11.7-16.9); LYMPH % 11.1 % (8-40); MCH 30.1 pg (25.7-33.7); MCHC 32.9 g/dl (32.0-35.9); MEAN CELL VOLUME 91.6 fl (80-96); NEUT % 85.8 % (42.8-82.8); PLATELET COUNT 260 10^3/uL (134-434); RBC 5.05 M/mm3 (4.00-5.60); RDW 14.1 % (11.9-15.9); WHITE BLOOD COUNT 12.3 K/mm3 (4.0-10.0)
[2024-04-11 10:00] LABS: POTASSIUM 4.3 mmol/L (3.5-5.1)
[2024-04-11 10:09] LABS: BLOOD UREA NITROGEN 19.7 mg/dL (7-18); CALCIUM 9.4 mg/dL (8.5-10.1)
[2024-04-11 10:10] LABS: MAGNESIUM 2.6 mg/dL (1.8-2.4)
[2024-04-11 10:12] LABS: ALBUMIN 4.1 g/dl (3.4-5.0)
[2024-04-11 10:14] LABS: BILIRUBIN,TOTAL 0.6 mg/dL (0.2-1); CREATININE 0.8 mg/dL (0.55-1.3)
[2024-04-11 10:15] LABS: TOT PROT 7.5 g/dl (6.4-8.2)
[2024-04-11] MEDS: ALPRAZolam 1 MG TABLET PO SCH (11:28)
[2024-04-11] MEDS ORDERED: IPRATROPIUM BR 0.02% 0.5 MG/2.5 ML VIAL.NEB. NEB PRN (13:05)
[2024-04-11] MEDS: ALBUTEROL SO4 0.083% IH SOL 2.5 MG/3 ML VIAL.NEB. NEB SCH (14:20)
[2024-04-11] MEDS ORDERED: ACETAMINOPHEN 325 MG TABLET (FP) PO PRN (14:25)
[2024-04-11] MEDS: methylPREDNISolone NA SUCC 40 MG/1 ML VIAL IVPUSH SCH (14:31)
[2024-04-11] MEDS: FLUTICASONE/UMECLIDIN/VILANTER(100-62.5-25 TRELEGY ELLIPTA) INAHLER IH SCH (14:35)
[2024-04-12 09:00] LABS: POTASSIUM 4.2 mmol/L (3.5-5.1)
[2024-04-12 09:02] LABS: CALCIUM 9.1 mg/dL (8.5-10.1)
[2024-04-12 09:03] LABS: ALBUMIN 3.8 g/dl (3.4-5.0); BLOOD UREA NITROGEN 18.2 mg/dL (7-18)
[2024-04-12 09:04] LABS: BASO % 0.2 % (0-2.0); HEMATOCRIT 43.1 % (35.4-49); HEMOGLOBIN 14.2 GM/dL (11.7-16.9); LYMPH % 11.7 % (8-40); MCH 29.8 pg (25.7-33.7); MEAN CELL VOLUME 90.4 fl (80-96); MEAN PLT VOLUME 7.9 fl (7.5-11.1); MONO % 4.7 % (3.8-10.2); NEUT % 83.4 % (42.8-82.8); PLATELET COUNT 255 10^3/uL (134-434); RBC 4.77 M/mm3 (4.00-5.60); RDW 13.7 % (11.9-15.9); WHITE BLOOD COUNT 14.7 K/mm3 (4.0-10.0)
[2024-04-12 09:06] LABS: CREATININE 0.9 mg/dL (0.55-1.3)
[2024-04-12 09:08] LABS: BILIRUBIN,TOTAL 0.4 mg/dL (0.2-1); TOT PROT 7.1 g/dl (6.4-8.2)
[2024-04-12] MEDS: AZITHROMYCIN 250 MG TABLET PO SCH (09:32)
[2024-04-12 11:55] VITALS: BP 135/53; PULSE 89; RESP 20; TEMP 97.7
== END 2024-04-12 11:13 | DRG 192 ==
LOC: JER 19:59 → JERBED 21:52 → J5S 23:41
PROVIDERS: ADMIT Internal Medicine
DX: J44.1 Chronic obstructive pulmonary disease with (acute) exacerbation (principal); F41.9 Anxiety disorder, unspecified; F41.0 Panic disorder [episodic paroxysmal anxiety]; F32.A Depression, unspecified; R94.31 Abnormal electrocardiogram [ECG] [EKG]
CPT/HCPCS: 0241U-QW; 36415; 36600; 71045-TC-FY; 71046-TC-FY; 80053; 82803; 83735; 83880; 84100; 84443; 84484; 85025; 85027; 93005; 93010; 94640; 97116-GP; 97161-GP; 99285-25; J0131